=== PATIENT | female | born 1960 | race American Indian/Alaskan Native ===

== ENCOUNTER 2017-03-31 06:43 | Emergency (ER) | payer SELFPAY ==
[2017-03-31 07:49] VITALS: BP 152/96
[2017-03-31 08:07] LABS: Basophils % (Auto) 0.4 % (0.0-1.8); Hemoglobin 12.4 gm/dl (10.1-14.3); Mean Corpuscular HGB Conc 33 % (30-34); Mean Corpuscular Hemoglobin 29 pg (28-32); Mean Corpuscular Volume 88 fl (79-97); Platelet Count 402 K/mm3 (140-440); Red Blood Count 4.34 M/mm3 (3.65-5.03); Red Cell Distribution Width 13.6 % (13.2-15.2); White Blood Count 7.1 K/mm3 (4.5-11.0)
[2017-03-31 08:19] LABS: Anion Gap 15 mmol/L; Blood Urea Nitrogen 7 mg/dL (7-17); Calcium 9.3 mg/dL (8.4-10.2); Carbon Dioxide 28 mmol/L (22-30); Chloride 101.6 mmol/L (98-107); Glucose 76 mg/dL (65-100); Potassium 3.8 mmol/L (3.6-5.0); Sodium 141 mmol/L (137-145)
--- NOTE | 2017-03-31 08:25 | XRay Report ---
CHEST 2 VIEWS INDICATION: Shortness of breath. COMPARISON: None similar at this institution. FINDINGS: PA and lateral chest radiographs demonstrate normal cardiomediastinal silhouette. Prominent/increased bronchovascular markings centrally with mild peribronchial thickening. No significant consolidation, though subtle suprahilar air space opacities not excluded developing. No pleural effusions or CHF. Demineralized bones with mild multilevel thoracic spine degenerative spurring. Lower cervical fusion hardware partially imaged. CONCLUSION: Bronchitis/peribronchial thickening, as described. Please correlate. Thank you for the opportunity to participate in this patient's care.
--- NOTE | 2017-03-31 08:37 | Emergency Department Report ---
- General Chief Complaint: Upper Respiratory Infection Stated Complaint: CHEST PAIN Time Seen by Provider: 03/31/17 08:19 Source: patient Mode of arrival: Ambulatory Limitations: No Limitations - History of Present Illness Initial Comments: This is a 56-year-old female that presents to the ED c/o of cough, chills, fever , headache x2 weeks. Patient stated she was seen in another ED and was dx with URI and was prescribed Tylenol, Tessalon, and Floanse with no relief. Patient present today with same symptoms and unchanged. Patient also stated has developed a productive cough with green/brown colored. Patient stated has chest tightness during cough episodes only. Patient denies sick contact. Patient states headache is during coughing episodes as well. Patient describes headache intermittent as aching diffuse level 5/10. Denies reproducible chest pain or radiating chest pain. Patient denies any recent travels, long car rides, or recent hospital stays. Patient denies thunderclap headache. Patient denies blurry vision, chest pain, shortness of breathe, hematisis, stiff neck, thunderclap headache, calf pain or tenderness, n/v, abd pain, wheezing. Patient agrees to PCN and codeine allergies. PMH of DM, HTN, and Arthritis. MD Complaint: cough -: Gradual, week(s) (2) Severity: moderate Severity scale (0 -10): 5 Quality: aching Consistency: intermittent Improves With: nothing Worsens With: nothing Associated Symptoms: fever, chills, headache (intermittent during cough), cough (productive with green/brown production), chest pain (intermittent during cough episode). denies: myalgias, diaphoresis, rhinorrhea, nasal congestion, sore throat, stiff neck, shortness of breath, abdominal pain, nausea, vomiting, diarrhea, dysuria, rash, confusion, right sweats, weight loss, epistaxis, hoarseness, ear pain Treatments Prior to Arrival: "cold medicine" - Related Data Previous Rx's Medication Instructions Recorded Last Taken Type Azithromycin [Zithromax Z-ROBBIN] 250 mg PO DAILY #6 tablet 03/31/17 Unknown Rx Nystas/Diphen/Xyl Visc/Mylanta 30 ml MM Q4H PRN #1 ml 03/31/17 Unknown Rx [Magic Mouthwash] Allergies Allergy/AdvReac Type Severity Reaction Status Date / Time codeine Allergy Vomiting Verified 03/31/17 07:38 Penicillins Allergy Hives Verified 03/31/17 07:38 ED Review of Systems ROS: Stated complaint: CHEST PAIN Other details as noted in HPI Constitutional: denies: chills, fever Eyes: denies: eye pain, eye discharge, vision change ENT: denies: ear pain, throat pain Respiratory: denies: cough, shortness of breath, wheezing Cardiovascular: denies: chest pain, palpitations Endocrine: no symptoms reported Gastrointestinal: denies: abdominal pain, nausea, diarrhea Genitourinary: denies: urgency, dysuria, discharge Musculoskeletal: denies: back pain, joint swelling, arthralgia Skin: denies: rash, lesions Neurological: denies: headache, weakness, paresthesias Psychiatric: denies: anxiety, depression Hematological/Lymphatic: denies: easy bleeding, easy bruising ED Past Medical Hx - Past Medical History Hx Hypertension: Yes Hx Diabetes: Yes (type 2) Hx Arthritis: Yes (left hip) Additional medical history: high cholesterol. "stroke in right eye" - Surgical History Hx Cholecystectomy: Yes Hx Appendectomy: Yes Hx Breast Surgery: Yes (BREAST REDUCTION) Additional Surgical History: X 2. HYSTERECTOMY - Social History Smoking Status: Current Every Day Smoker Substance Use Type: None - Medications Home Medications: Home Medications Medication Instructions Recorded Confirmed Last Taken Type Azithromycin [Zithromax Z-ROBBIN] 250 mg PO DAILY #6 tablet 03/31/17 Unknown Rx Nystas/Diphen/Xyl Visc/Mylanta 30 ml MM Q4H PRN #1 ml 03/31/17 Unknown Rx [Magic Mouthwash] ED Physical Exam - General Limitations: No Limitations General appearance: alert, in no apparent distress - Head Head exam: Present: atraumatic, normocephalic, normal inspection - Eye Eye exam: Present: normal appearance, PERRL, EOMI. Absent: scleral icterus, conjunctival injection, nystagmus, periorbital swelling, periorbital tenderness Pupils: Present: normal accommodation - ENT ENT exam: Present: normal exam, normal orophraynx, mucous membranes moist, TM's normal bilaterally, normal external ear exam - Neck Neck exam: Present: normal inspection, full ROM. Absent: tenderness, meningismus, lymphadenopathy, thyromegaly - Respiratory Respiratory exam: Present: normal lung sounds bilaterally. Absent: respiratory distress, wheezes, rales, rhonchi, stridor, chest wall tenderness, accessory muscle use, decreased breath sounds, prolonged expiratory - Cardiovascular Cardiovascular Exam: Present: regular rate, normal rhythm, normal heart sounds. Absent: bradycardia, tachycardia, irregular rhythm, systolic murmur, diastolic murmur, rubs, gallop - GI/Abdominal GI/Abdominal exam: Present: soft, normal bowel sounds. Absent: distended, tenderness, guarding, rebound, rigid, diminished bowel sounds - Rectal Rectal exam: Present: deferred - Extremities Exam Extremities exam: Present: normal inspection, full ROM, normal capillary refill. Absent: tenderness, pedal edema, joint swelling, calf tenderness - Back Exam Back exam: Present: normal inspection, full ROM. Absent: tenderness, CVA tenderness (R), CVA tenderness (L), muscle spasm, paraspinal tenderness, vertebral tenderness, rash noted - Neurological Exam Neurological exam: Present: alert, oriented X3, CN II-XII intact, normal gait, reflexes normal - Psychiatric Psychiatric exam: Present: normal affect, normal mood - Skin Skin exam: Present: warm, dry, intact, normal color. Absent: rash ED Course Vital Signs 03/31/17 07:41 Temperature 98.5 F Pulse Rate 90 Respiratory 18 Rate Blood Pressure 152/96 O2 Sat by Pulse 98 Oximetry - Reevaluation(s) Reevaluation #1: 03/31/17 08:46 Patient is able to talk in full sentences with no signs of distress noted. ED Medical Decision Making - Lab Data Result diagrams: 03/31/17 07:57 03/31/17 07:57 - Medical Decision Making Ed course: This is a 56-year-old female that presents with URI 1- patient was examined by myself. Patient is able to speak in full sentences with no signs of distress. No wheezing. NO SOB 2- EKg and chest xray obtained with normal findings. Dictated by radiologist. Patient was notified of xray findings. 3- CBC and BMP obtained with normal findings. 4- patient will be treated with Zpak and magic mouth wash. Patient was instructed to follow-up with a primary care doctor in 3-5 days or if symptoms such as chest pain, shortness of breathe, fever, chills, severe headache, stiff neck, nausea or vomiting return to the emergency room as soon as possible. 5- at time time of discharge, the patient does not seem toxic or ill in appearance. No acute signs of distress noted. Patient agrees to discharge treatment plan of care. No further questions noted by the patient. Critical care attestation.: If time is entered above; I have spent that time in minutes in the direct care of this critically ill patient, excluding procedure time. ED Disposition Clinical Impression: Upper respiratory infection Qualifiers: URI type: unspecified URI Qualified Code(s): J06.9 - Acute upper respiratory infection, unspecified Disposition: - TO HOME OR SELFCARE Is pt being admited?: No Does the pt Need Aspirin: No Condition: Stable Instructions: Urinary Tract Infection in Women (ED), Azithromycin (By mouth) Additional Instructions: follow-up with a primary care doctor in 3-5 days or if symptoms such as chest pain, shortness of breathe, fever, chills, severe headache, stiff neck, nausea or vomiting return to the emergency room as soon as possible. Take full course of antibiotics that was prescribed to you Prescriptions: Azithromycin [Zithromax Z-ROBBIN] 250 mg PO DAILY #6 tablet Nystas/Diphen/Xyl Visc/Mylanta [Magic Mouthwash] 30 ml MM Q4H PRN #1 ml PRN Reason: sore throat/cough Referrals: PRIMARY CAREMD [Primary Care Provider] - 3-5 Days JACK LOPEZ JR, MD [Staff Physician] - 3-5 Days [facility] [Outside] - 3-5 Days [facility] [Outside] - 3-5 Days Forms: Work/School Release Form(ED)
== END 2017-03-31 09:56 | disposition home or self-care (01) ==
LOC: ED 06:43
DX: J06.9 Acute upper respiratory infection, unspecified (principal); I10 Essential (primary) hypertension; E11.9 Type 2 diabetes mellitus without complications; F17.200 Nicotine dependence, unspecified, uncomplicated
CPT/HCPCS: 36415; 71020; 80048; 85025; 93005; 93010; 99283

== ENCOUNTER 2017-05-18 06:51 | Emergency (ER) | payer SELFPAY ==
[2017-05-18 07:50] VITALS: BP 130/87
[2017-05-18 12:38] LABS: Anion Gap 19 mmol/L; BUN/Creatinine Ratio 33.33; Blood Urea Nitrogen 10 mg/dL (7-17); Calcium 8.9 mg/dL (8.4-10.2); Carbon Dioxide 22 mmol/L (22-30); Chloride 101.9 mmol/L (98-107); Glucose 88 mg/dL (65-100); Sodium 139 mmol/L (137-145)
[2017-05-18] MEDS ORDERED: TORADOL IM ONE (12:47)
--- NOTE | 2017-05-19 12:20 | Vascular Lab Report ---
Right Lower Extremity Venous Duplex Study: Reason for Exam: Swelling of the right lower extremity. Comments on the Right: All veins visualized are freely compressible without evidence of internal echogenicity. Flow is spontaneous and phasic throughout. No evidence of acute or chronic thrombus is seen in any of the vessels visualized. Comments on the Left: A limited duplex study was done of the proximal veins of the left lower extremity. All veins visualized are freely compressible without evidence of internal echogenicity. Flow is spontaneous and phasic throughout. No evidence of acute or chronic thrombus is seen in any of the vessels visualized. Impression: No evidence of acute or chronic deep venous thrombosis in the right lower extremity.
--- NOTE | 2017-05-20 18:44 | Emergency Department Report ---
Entered by PATRIC MOYA, acting as scribe for JERRY MAGANA PAC. 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 Rates pain a 10/10 in severity, which she describes as aching in quality. Aggravated with movement, weight bearing, and palpation, and alleviated with immobilization. Reports associated right knee swelling, but she denies right knee injury/trauma, nausea, vomiting, fever, chills, chest pain, SOB, ROSALES or dizziness, numbness, and tingling. Patient states she had swelling from right knee down to right foot 4 days ago that all resolved except for her right knee. Denies PMHx of gout, DVT, and PE. Denies any recent long trips. Works at a [employer]. Took Advil and Tylenol with no relief. Allergic to codeine and penicillin. MD Complaint: joint paint Onset/Timin -: month(s) Location: right, knee History of Same: No -: No myalgia, Yes arthralgia, No fever, No associated dyspnea, No associated chest pain Radiation: none Severity scale (0 -10): 10 Quality: aching Consistency: constant Improves with: immobilization Worsens with: weight bearing, walking, exertion, palpation Associated Symptoms: denies other symptoms, arthralgias. denies: chest pain, shortness of breath, fever, myalgias, rash - Related Data Home Medications Medication Instructions Recorded Confirmed Last Taken Acetaminophen [Tylenol] 500 mg PO Q4HR 05/18/17 05/18/17 05/17/17 Aspirin [Aspirin BABY CHEW TAB] 81 mg PO QDAY 05/18/17 05/18/17 05/17/17 Losartan [Cozaar] 25 mg PO QDAY 05/18/17 05/18/17 05/17/17 Rosuvastatin Calcium 10 mg PO DAILY 05/18/17 05/18/17 05/17/17 amLODIPine [Norvasc] 10 mg PO DAILY 05/18/17 05/18/17 05/17/17 glipiZIDE [Glucotrol] 5 mg PO QDAY 05/18/17 05/18/17 05/17/17 metFORMIN [Glucophage] 500 mg PO BID 05/18/17 05/18/17 05/17/17 Previous Rx's Medication Instructions Recorded Last Taken Type Meloxicam [Mobic] 7.5 mg PO QDAY #14 tablet 05/18/17 Unknown Rx methylPREDNISolone [Medrol] 4 mg PO QAM #1 tab.ds.pk 05/18/17 Unknown Rx Allergies Allergy/AdvReac Type Severity Reaction Status Date / Time codeine Allergy Vomiting Verified 03/31/17 07:38 Penicillins Allergy Hives Verified 03/31/17 07:38 ED Review of Systems Comment: All other systems reviewed and negative Constitutional: denies: chills, fever Eyes: denies: eye pain, eye discharge, vision change ENT: denies: ear pain, throat pain Respiratory: denies: cough, orthopnea, shortness of breath, SOB with exertion, SOB at rest, stridor, wheezing Cardiovascular: denies: chest pain, palpitations, dyspnea on exertion, orthopnea , edema, syncope, paroxysmal nocturnal dyspnea Endocrine: no symptoms reported Gastrointestinal: denies: abdominal pain, nausea, vomiting, diarrhea Genitourinary: denies: urgency, dysuria, discharge Musculoskeletal: joint swelling (RT knee), arthralgia (RT knee pain). denies: back pain, myalgia Skin: denies: rash, lesions Neurological: denies: headache, weakness, paresthesias Psychiatric: denies: anxiety, depression Hematological/Lymphatic: denies: easy bleeding, easy bruising ED Past Medical Hx - Past Medical History Previous Medical History?: Yes Hx Hypertension: Yes Hx CVA: Yes ("in right eye" in December/January 2016) Hx Diabetes: Yes (type 2) Hx Arthritis: Yes (left hip) Additional medical history: high cholesterol - Surgical History Past Surgical History?: Yes Hx Cholecystectomy: Yes Hx Appendectomy: Yes Hx Breast Surgery: Yes (BREAST REDUCTION) Additional Surgical History: X 2. HYSTERECTOMY - Family History Family history: no significant - Social History Smoking Status: Current Every Day Smoker Substance Use Type: None - Medications Home Medications: Home Medications Medication Instructions Recorded Confirmed Last Taken Type Acetaminophen [Tylenol] 500 mg PO Q4HR 05/18/17 05/18/17 05/17/17 History Aspirin [Aspirin BABY CHEW TAB] 81 mg PO QDAY 05/18/17 05/18/17 05/17/17 History Losartan [Cozaar] 25 mg PO QDAY 05/18/17 05/18/17 05/17/17 History Meloxicam [Mobic] 7.5 mg PO QDAY #14 tablet 05/18/17 Unknown Rx Rosuvastatin Calcium 10 mg PO DAILY 05/18/17 05/18/17 05/17/17 History amLODIPine [Norvasc] 10 mg PO DAILY 05/18/17 05/18/17 05/17/17 History glipiZIDE [Glucotrol] 5 mg PO QDAY 05/18/17 05/18/17 05/17/17 History metFORMIN [Glucophage] 500 mg PO BID 05/18/17 05/18/17 05/17/17 History methylPREDNISolone [Medrol] 4 mg PO QAM #1 tab.ds.pk 05/18/17 Unknown Rx ED Physical Exam - General Limitations: No Limitations General appearance: alert, in no apparent distress - Head Head exam: Present: atraumatic, normocephalic - Eye Eye exam: Present: normal appearance, PERRL, EOMI Pupils: Present: normal accommodation - ENT ENT exam: Present: normal exam, mucous membranes moist, normal external ear exam - Neck Neck exam: Present: normal inspection, full ROM. Absent: tenderness, meningismus, lymphadenopathy, thyromegaly - Respiratory Respiratory exam: Present: normal lung sounds bilaterally. Absent: respiratory distress, wheezes, rales, rhonchi, stridor, chest wall tenderness, accessory muscle use, decreased breath sounds - Cardiovascular Cardiovascular Exam: Present: regular rate, normal rhythm, normal heart sounds. Absent: systolic murmur, diastolic murmur - GI/Abdominal GI/Abdominal exam: Present: soft, normal bowel sounds. Absent: distended - Extremities Exam Extremities exam: Present: full ROM (painful FROM to RT knee), tenderness (RT knee, lower aspect of RT upper leg, and upper aspect of RT lower leg), normal capillary refill, other (RT knee is warm to touch). Absent: normal inspection, pedal edema, joint swelling, calf tenderness - Expanded Lower Extremity Exam Right Hip exam: Present: normal inspection, full ROM Upper Leg exam: Present: full ROM, tenderness (lower aspect of RT upper leg). Absent: normal inspection, swelling, abrasion, laceration, ecchymosis, deformity , crepidus, dislocation, erythema Knee exam: Present: full ROM (painful FROM to RT knee), tenderness, swelling, erythema, full knee extension. Absent: normal inspection, abrasion, laceration , ecchymosis, deformity, crepidus, dislocation, effusion, pain w/ pronation/ supination, posterior draw sign, pain/laxity with valgus, pain/laxity with varus Lower Leg exam: Present: full ROM, tenderness (upper aspect of RT lower leg, positive R calf tenderness, more pain around the R knee, mild redness, and warm to touch). Absent: normal inspection, swelling, abrasion, laceration, ecchymosis, deformity, crepidus, dislocation, erythema, palpable cord, Celia's sign Ankle exam: Present: normal inspection, full ROM. Absent: tenderness, swelling , abrasion, laceration, ecchymosis, deformity, crepidus, dislocation, erythema, anterior draw sign Foot/Toe exam: Present: normal inspection, full ROM. Absent: tenderness, swelling, abrasion, laceration, ecchymosis, deformity, crepidus, dislocation, erythema, amputation, puncture wound, foreign body, calcaneal tenderness, tenderness at base of 5th metatarsal, nail avulsion, subungual hematoma Neuro vascular tendon exam: Present: no vascular compromise. Absent: pulse deficit, abnormal cap refill, motor deficit, sensory deficit, tendon deficit, extremity cold to touch, pallor, abnormal 2-point discrimination, decreased fine /light touch, foot drop, peroneal nerve deficit, significant pain with passive ROM of distal joint Gait: Positive: observed and limited by pain - Back Exam Back exam: Present: normal inspection, full ROM - Neurological Exam Neurological exam: Present: alert, oriented X3, CN II-XII intact (limited Right lateral Eye movement secondary to the stroke, strength full bilaterally, pt refused to show strength of the affected lower limb, 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, sensation intact ), normal gait (limited due to RT knee pain) - Expanded Neurological Exam Expanded Patient oriented to: Present: person, place, time Speech: Present: fluid speech (normal tone of speech) Cranial nerves: EOM's Intact: Abnormal Right (due to previous CVA in 2016), Tongue Deviation: Normal, Nystagmus: Normal, Facial Sensation: Normal, Facial Palsy with Forehead Movement: Normal, Facial Palsy without Forehead Movement: Normal Sensory exam: Upper Extremity Light Touch: Normal, Upper Extremity Pin Prick: Normal, Upper Extremity Temperature: Normal, UE 2 Point Discrimination: Normal, Lower Extremity Light Touch: Normal, Lower Extremity Pin Prick: Normal, Lower Extremity Temperature: Normal, LE 2 Point Discrimination: Normal Motor strength exam: RUE: 5, LUE: 5, RLE: 0 (patient refused motor strength exam on RLE due to pain), LLE: 5 Best Eye Response (Weiner): (4) open spontaneously Best Motor Response (Nazanin): (6) obeys commands Best Verbal Response (Weiner): (5) oriented Weiner Total: 15 - Psychiatric Psychiatric exam: Present: normal affect, normal mood - Skin Skin exam: Present: warm, dry, intact. Absent: rash ED Course Vital Signs 05/18/17 07:46 Temperature 98.5 F Pulse Rate 84 Respiratory 20 Rate Blood Pressure 130/87 O2 Sat by Pulse 100 Oximetry ED Medical Decision Making - Lab Data Result diagrams: 05/18/17 12:11 - Medical Decision Making 56 y/o F with a PMhx of stroke, DM type 2, hyperlipidemia, and HTN presents with a one month long R leg pain that has increased over the past 4 days. No known hx of gout, but states that she has arthritis of the left hip. Pt kidney function was checked here in the ED and was okayed by Dr. Ricketts, therefore, pt was given 60 mg of toradol in house for the pain, and discharged on medrol dose ansley 4 mg along with meloxicam. Pt states that her DM is fairly controlled per her past PCP appointment. Pt encouraged to follow-up with her within the next week. ED Disposition Clinical Impression: Gout attack Qualifiers: Gout site: knee Gout etiology: unspecified cause Laterality: right Qualified Code(s): M10.9 - Gout, unspecified Disposition: - TO HOME OR SELFCARE Is pt being admited?: No Does the pt Need Aspirin: No Instructions: Acute Gouty Arthritis (ED), Meloxicam (By mouth), Methylprednisolone (By mouth) Additional Instructions: please be advised that such medications can make you drowsy, use cautiously and as needed. Please return to the ED with continued or worsening symptoms as explained to you today. Please see your PCP within the next week. Rest the area , work note provided for you today. Prescriptions: Meloxicam [Mobic] 7.5 mg PO QDAY #14 tablet methylPREDNISolone [Medrol] 4 mg PO QAM #1 tab.ds.pk Referrals: PRIMARY CAREMD [Primary Care Provider] - 3-5 Days STEPHANIE MORALES MD [Referring] - 3-5 Days [facility] [Outside] - 3-5 Days [facility] [Outside] - 3-5 Days Forms: Work/School Release Form(ED) Time of Disposition: 13:25 This documentation as recorded by the NITA bojorquez JASMINE,accurately reflects the service I personally performed and the decisions made by me,JERRY MAGANA, PAC.
== END 2017-05-18 13:37 | disposition home or self-care (01) ==
LOC: ED 06:51
DX: M10.9 Gout, unspecified (principal); I10 Essential (primary) hypertension; E11.9 Type 2 diabetes mellitus without complications; M19.90 Unspecified osteoarthritis, unspecified site; F17.210 Nicotine dependence, cigarettes, uncomplicated; Z88.6 Allergy status to analgesic agent; Z88.0 Allergy status to penicillin; Z86.73 Personal history of transient ischemic attack (TIA), and cerebral infarction without residual deficits; Z79.82 Long term (current) use of aspirin
CPT/HCPCS: 36415; 80048; 93971; 96372; 99284; J1885

== ENCOUNTER 2017-09-19 07:35 | Emergency (ER) | payer SELFPAY ==
[2017-09-19 14:27] VITALS: BP 156/83
--- NOTE | 2017-09-19 15:53 | XRay Report ---
CHEST 2 VIEWS INDICATION: Brown, productive cough for 2 days. COMPARISON: 03/31/2017 FINDINGS: PA and lateral chest radiographs demonstrate stable cardiomediastinal silhouette and somewhat prominent lung markings centrally. Slight peribronchial thickening. No dense focal consolidation, pleural effusions or CHF. Multilevel thoracic spondylosis. Lower cervical spine fusion hardware. CONCLUSION: Bronchitis/peribronchial thickening may again be correlated for clinically in an appropriate setting, as described. Thank you for the opportunity to participate in this patient's care.
[2017-09-19] MEDS ORDERED: MOTRIN PO ONE (16:04)
[2017-09-19] MEDS ORDERED: TYLENOL PO ONE (16:04)
--- NOTE | 2017-09-19 16:11 | Emergency Department Report ---
ED General Adult HPI - General Chief complaint: Upper Respiratory Infection Stated complaint: C/P TIGHTNESS Time Seen by Provider: 09/19/17 14:54 Source: patient Mode of arrival: Ambulatory Limitations: No Limitations - History of Present Illness Initial comments: Pt is 56F who presents with cough and congestion that has been going on for the last couple of days. She states nothing makes her cough better or worse. She denies being around any sick contacts. She also states that she has a sore throat. He sore throat is a 5/10 nothing eating makes it worse and nothign makes it better. Pt denies having any fever or chills. Pt denies having any hemoptysis or bloody stools. Severity scale (0 -10): 10 - Related Data Home Medications Medication Instructions Recorded Confirmed Last Taken Acetaminophen [Tylenol] 500 mg PO Q4HR 05/18/17 05/18/17 05/17/17 Aspirin [Aspirin BABY CHEW TAB] 81 mg PO QDAY 05/18/17 05/18/17 05/17/17 Losartan [Cozaar] 25 mg PO QDAY 05/18/17 05/18/17 05/17/17 Rosuvastatin Calcium 10 mg PO DAILY 05/18/17 05/18/17 05/17/17 amLODIPine [Norvasc] 10 mg PO DAILY 05/18/17 05/18/17 05/17/17 glipiZIDE [Glucotrol] 5 mg PO QDAY 05/18/17 05/18/17 05/17/17 metFORMIN [Glucophage] 500 mg PO BID 05/18/17 05/18/17 05/17/17 Previous Rx's Medication Instructions Recorded Last Taken Type Meloxicam [Mobic] 7.5 mg PO QDAY #14 tablet 05/18/17 Unknown Rx methylPREDNISolone [Medrol] 4 mg PO QAM #1 tab.ds.pk 05/18/17 Unknown Rx Azithromycin [Zithromax Z-ROBBIN] 250 mg PO QDAY #5 tablet 09/19/17 Unknown Rx D-Methorphan/PE/Acetaminophen 1 each PO Q6H PRN #30 tablet 09/19/17 Unknown Rx [Tylenol Cold Max Day Caplet] Naproxen 250 mg PO Q12HR #20 tablet 09/19/17 Unknown Rx guaiFENesin [Mucinex] 600 mg PO Q12H #20 tab.er.12h 09/19/17 Unknown Rx Allergies Allergy/AdvReac Type Severity Reaction Status Date / Time codeine Allergy Vomiting Verified 03/31/17 07:38 Penicillins Allergy Hives Verified 03/31/17 07:38 ED Review of Systems ROS: Stated complaint: C/P TIGHTNESS Other details as noted in HPI Constitutional: denies: chills, fever Eyes: denies: eye pain, eye discharge, vision change ENT: throat pain. denies: ear pain Respiratory: cough. 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 HYSTERECTOMY - Social History Smoking Status: Current Every Day Smoker Substance Use Type: Alcohol - Medications Home Medications: Home Medications Medication Instructions Recorded Confirmed Last Taken Type Acetaminophen [Tylenol] 500 mg PO Q4HR 05/18/17 05/18/17 05/17/17 History Aspirin [Aspirin BABY CHEW TAB] 81 mg PO QDAY 05/18/17 05/18/17 05/17/17 History Losartan [Cozaar] 25 mg PO QDAY 05/18/17 05/18/17 05/17/17 History Meloxicam [Mobic] 7.5 mg PO QDAY #14 tablet 05/18/17 Unknown Rx Rosuvastatin Calcium 10 mg PO DAILY 05/18/17 05/18/17 05/17/17 History amLODIPine [Norvasc] 10 mg PO DAILY 05/18/17 05/18/17 05/17/17 History glipiZIDE [Glucotrol] 5 mg PO QDAY 05/18/17 05/18/17 05/17/17 History metFORMIN [Glucophage] 500 mg PO BID 05/18/17 05/18/17 05/17/17 History methylPREDNISolone [Medrol] 4 mg PO QAM #1 tab.ds.pk 05/18/17 Unknown Rx Azithromycin [Zithromax Z-ROBBIN] 250 mg PO QDAY #5 tablet 09/19/17 Unknown Rx D-Methorphan/PE/Acetaminophen 1 each PO Q6H PRN #30 tablet 09/19/17 Unknown Rx [Tylenol Cold Max Day Caplet] Naproxen 250 mg PO Q12HR #20 tablet 09/19/17 Unknown Rx guaiFENesin [Mucinex] 600 mg PO Q12H #20 tab.er.12h 09/19/17 Unknown Rx ED Physical Exam - General Limitations: No Limitations General appearance: alert, in no apparent distress - Head Head exam: Present: atraumatic, normocephalic - Eye Eye exam: Present: normal appearance - ENT ENT exam: Present: mucous membranes moist, other (No tonsilar exudates or cervical adenopathy ) - Neck Neck exam: Present: normal inspection - Respiratory Respiratory exam: Present: normal lung sounds bilaterally. Absent: respiratory distress - Cardiovascular Cardiovascular Exam: Present: regular rate, normal rhythm. Absent: systolic murmur, diastolic murmur, rubs, gallop - GI/Abdominal GI/Abdominal exam: Present: soft, normal bowel sounds - Extremities Exam Extremities exam: Present: normal inspection - Back Exam Back exam: Present: normal inspection - Neurological Exam Neurological exam: Present: alert, oriented X3 - Psychiatric Psychiatric exam: Present: normal affect, normal mood - Skin Skin exam: Present: warm, dry, intact, normal color. Absent: rash ED Course Vital Signs 09/19/17 09/19/17 09/19/17 07:41 14:26 14:27 Temperature 98.9 F 99.4 F Pulse Rate 105 H 92 H Respiratory 20 18 18 Rate Blood Pressure 152/90 Blood Pressure 156/83 [Left] O2 Sat by Pulse 99 99 Oximetry ED Medical Decision Making - EKG Data -: EKG Interpreted by Sc - EKG Data 09/19/17 16:16 EKG shows normal sinus rhythm, normal axis no st segment elevation or T wave inversion - Medical Decision Making Cdx: URI ddx: PNA, viral pharyngtis, bronchitis I will get chest xray, oral pain medications and will revaluate the the patient. Patient has a URI I will send pt with azithromycin and steroids. Pt requests antibiotics discussed with pt that it is of limited utilitly. Based on clinical signs pt doesn't have strep throat and doesn't need strep throat culture. Discussed plan with patient and patient agrees with plan additional verbal discharge instructions were given. Critical care attestation.: If time is entered above; I have spent that time in minutes in the direct care of this critically ill patient, excluding procedure time. ED Disposition Clinical Impression: Bronchitis, Chest wall pain URI (upper respiratory infection) Qualifiers: URI type: unspecified viral URI Qualified Code(s): J06.9 - Acute upper respiratory infection, unspecified; B97.89 - Other viral agents as the cause of diseases classified elsewhere; B97.89 - Other viral agents as the cause of diseases classified elsewhere Disposition: DC-01 TO HOME OR SELFCARE Is pt being admited?: No Does the pt Need Aspirin: No Condition: Stable Instructions: Chronic Bronchitis (ED), Chest Pain (ED) Prescriptions: Azithromycin [Zithromax Z-ROBBIN] 250 mg PO QDAY #5 tablet D-Methorphan/PE/Acetaminophen [Tylenol Cold Max Day Caplet] 1 each PO Q6H PRN # 30 tablet PRN Reason: Pain guaiFENesin [Mucinex] 600 mg PO Q12H #20 tab.er.12h Naproxen 250 mg PO Q12HR #20 tablet Referrals: PRIMARY CARE, [Primary Care Provider] - 3-5 Days Forms: Work/School Release Form(ED)
== END 2017-09-19 16:32 | disposition home or self-care (01) ==
LOC: ED 07:35
DX: J06.9 Acute upper respiratory infection, unspecified (principal); R07.89 Other chest pain; F17.200 Nicotine dependence, unspecified, uncomplicated; Z79.82 Long term (current) use of aspirin; I10 Essential (primary) hypertension; E78.00 Pure hypercholesterolemia, unspecified; E11.9 Type 2 diabetes mellitus without complications; M19.90 Unspecified osteoarthritis, unspecified site; Z90.710 Acquired absence of both cervix and uterus; Z90.49 Acquired absence of other specified parts of digestive tract
CPT/HCPCS: 71046; 93005; 93010; 99283

== ENCOUNTER 2017-11-05 09:52 | Emergency (ER) | payer OTHER ==
[2017-11-05 10:46] LABS: Basophils % (Auto) 0.1 % (0.0-1.8); Eosinophils % (Auto) 0.2 % (0.0-4.3); Hematocrit 37.5 % (30.3-42.9); Hemoglobin 12.4 gm/dl (10.1-14.3); Lymphocytes # (Auto) 1.1 K/mm3 (1.2-5.4); Lymphocytes % (Auto) 13.1 % (13.4-35.0); Mean Corpuscular HGB Conc 33 % (30-34); Mean Corpuscular Hemoglobin 28 pg (28-32); Mean Corpuscular Volume 84 fl (79-97); Monocytes # (Auto) 0.8 K/mm3 (0.0-0.8); Monocytes % (Auto) 9.5 % (0.0-7.3); Platelet Count 273 K/mm3 (140-440); Red Blood Count 4.45 M/mm3 (3.65-5.03); Red Cell Distribution Width 13.5 % (13.2-15.2)
--- NOTE | 2017-11-05 11:00 | Emergency Department Report ---
ED Abdominal Pain HPI - General Chief Complaint: Abdominal Pain Stated Complaint: NAUSEA/VOMITING Time Seen by Provider: 11/05/17 10:46 Source: patient Mode of arrival: Ambulatory Limitations: No Limitations - History of Present Illness MD Complaint: abdominal pain -: Sudden, Last night (after drinking alcohol and eating chicken. ) Location: diffuse Migration to: no migration Severity scale (0 -10): 10 Quality: cramping Consistency: constant Improves With: nothing Worsens With: vomiting Context: possible food poisoning Associated Symptoms: nausea, vomiting, diarrhea (loose BM X3) - Related Data Home Medications Medication Instructions Recorded Confirmed Last Taken Acetaminophen [Tylenol] 500 mg PO Q4HR 05/18/17 05/18/17 05/17/17 Aspirin [Aspirin BABY CHEW TAB] 81 mg PO QDAY 05/18/17 05/18/17 05/17/17 Losartan [Cozaar] 25 mg PO QDAY 05/18/17 05/18/17 05/17/17 Rosuvastatin Calcium 10 mg PO DAILY 05/18/17 05/18/17 05/17/17 amLODIPine [Norvasc] 10 mg PO DAILY 05/18/17 05/18/17 05/17/17 glipiZIDE [Glucotrol] 5 mg PO QDAY 05/18/17 05/18/17 05/17/17 metFORMIN [Glucophage] 500 mg PO BID 05/18/17 05/18/17 05/17/17 Previous Rx's Medication Instructions Recorded Last Taken Type Meloxicam [Mobic] 7.5 mg PO QDAY #14 tablet 05/18/17 Unknown Rx methylPREDNISolone [Medrol] 4 mg PO QAM #1 tab.ds.pk 05/18/17 Unknown Rx Azithromycin [Zithromax Z-ROBBIN] 250 mg PO QDAY #5 tablet 09/19/17 Unknown Rx D-Methorphan/PE/Acetaminophen 1 each PO Q6H PRN #30 tablet 09/19/17 Unknown Rx [Tylenol Cold Max Day Caplet] Naproxen 250 mg PO Q12HR #20 tablet 09/19/17 Unknown Rx guaiFENesin [Mucinex] 600 mg PO Q12H #20 tab.er.12h 09/19/17 Unknown Rx Ibuprofen [Motrin] 800 mg PO Q8HR PRN #24 tablet 11/05/17 Unknown Rx oxyCODONE /ACETAMINOPHEN [Percocet 1 tab PO Q6HR PRN #16 tablet 11/05/17 Unknown Rx 5/325] Allergies Allergy/AdvReac Type Severity Reaction Status Date / Time codeine Allergy Vomiting Verified 03/31/17 07:38 Penicillins Allergy Hives Verified 03/31/17 07:38 ED Review of Systems ROS: Stated complaint: NAUSEA/VOMITING Other details as noted in HPI Constitutional: denies: chills, fever Eyes: denies: eye pain, eye discharge, vision change ENT: denies: ear pain, throat pain Respiratory: denies: cough, shortness of breath, wheezing Cardiovascular: denies: chest pain, palpitations Endocrine: no symptoms reported Gastrointestinal: as per HPI, abdominal pain, nausea, vomiting, diarrhea. 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 HYSTERECTOMY - Social History Smoking Status: Current Every Day Smoker Substance Use Type: Alcohol - Medications Home Medications: Home Medications Medication Instructions Recorded Confirmed Last Taken Type Acetaminophen [Tylenol] 500 mg PO Q4HR 05/18/17 05/18/17 05/17/17 History Aspirin [Aspirin BABY CHEW TAB] 81 mg PO QDAY 05/18/17 05/18/17 05/17/17 History Losartan [Cozaar] 25 mg PO QDAY 05/18/17 05/18/17 05/17/17 History Meloxicam [Mobic] 7.5 mg PO QDAY #14 tablet 05/18/17 Unknown Rx Rosuvastatin Calcium 10 mg PO DAILY 05/18/17 05/18/17 05/17/17 History amLODIPine [Norvasc] 10 mg PO DAILY 05/18/17 05/18/17 05/17/17 History glipiZIDE [Glucotrol] 5 mg PO QDAY 05/18/17 05/18/17 05/17/17 History metFORMIN [Glucophage] 500 mg PO BID 05/18/17 05/18/17 05/17/17 History methylPREDNISolone [Medrol] 4 mg PO QAM #1 tab.ds.pk 05/18/17 Unknown Rx Azithromycin [Zithromax Z-ROBBIN] 250 mg PO QDAY #5 tablet 09/19/17 Unknown Rx D-Methorphan/PE/Acetaminophen 1 each PO Q6H PRN #30 tablet 09/19/17 Unknown Rx [Tylenol Cold Max Day Caplet] Naproxen 250 mg PO Q12HR #20 tablet 09/19/17 Unknown Rx guaiFENesin [Mucinex] 600 mg PO Q12H #20 tab.er.12h 09/19/17 Unknown Rx Ibuprofen [Motrin] 800 mg PO Q8HR PRN #24 tablet 11/05/17 Unknown Rx oxyCODONE /ACETAMINOPHEN [Percocet 1 tab PO Q6HR PRN #16 tablet 11/05/17 Unknown Rx 5/325] ED Physical Exam - General Limitations: No Limitations General appearance: alert, in no apparent distress - Head Head exam: Present: atraumatic, normocephalic - Eye Eye exam: Present: normal appearance - ENT ENT exam: Present: mucous membranes moist - Neck Neck exam: Present: normal inspection - Respiratory Respiratory exam: Present: normal lung sounds bilaterally. Absent: respiratory distress - Cardiovascular Cardiovascular Exam: Present: regular rate, normal rhythm. Absent: systolic murmur, diastolic murmur, rubs, gallop - GI/Abdominal GI/Abdominal exam: Present: soft, tenderness (diffuse), normal bowel sounds. Absent: rebound - Extremities Exam Extremities exam: Present: normal inspection - Back Exam Back exam: Present: normal inspection - Neurological Exam Neurological exam: Present: alert, oriented X3 - Psychiatric Psychiatric exam: Present: normal affect, normal mood - Skin Skin exam: Present: warm, dry, intact, normal color. Absent: rash ED Course Vital Signs 11/05/17 11/05/17 10:15 11:37 Temperature 98.7 F Pulse Rate 92 H 84 Respiratory 18 16 Rate Blood Pressure 146/80 Blood Pressure 131/75 [Left] O2 Sat by Pulse 98 96 Oximetry ED Medical Decision Making - Lab Data Result diagrams: 11/05/17 10:30 11/05/17 10:30 Critical care attestation.: If time is entered above; I have spent that time in minutes in the direct care of this critically ill patient, excluding procedure time. ED Disposition Clinical Impression: Hepatitis, Lymphadenopathy, abdominal Pancreatitis Qualifiers: Chronicity: acute Pancreatitis type: alcohol induced Acute pancreatitis complication: no infection or necrosis Qualified Code(s): K85.20 - Alcohol induced acute pancreatitis without necrosis or infection Disposition: - TO HOME OR SELFCARE Is pt being admited?: No Does the pt Need Aspirin: No Condition: Stable Instructions: Abdominal Pain (ED) Additional Instructions: Follow up with PCP for CT findings. Prescriptions: Ibuprofen [Motrin] 800 mg PO Q8HR PRN #24 tablet PRN Reason: Pain oxyCODONE /ACETAMINOPHEN [Percocet 5/325] 1 tab PO Q6HR PRN #16 tablet PRN Reason: Pain Time of Disposition: 15:11
[2017-11-05] MEDS ORDERED: TORADOL IM ONE (11:04)
[2017-11-05 11:06] LABS: Alanine Aminotransferase 309 units/L (7-56); Albumin 3.9 g/dL (3.9-5); BUN/Creatinine Ratio 23; Blood Urea Nitrogen 7 mg/dL (7-17); Calcium 9.1 mg/dL (8.4-10.2); Hemolysis Index 0
[2017-11-05 11:35] LABS: Bacteria,Urine 1+ /HPF (Negative); Bilirubin,Urine SM (Negative); Blood,Urine NEG (Negative); Color,Urine Amber (Yellow); Mucus,Urine FEW /HPF; Protein,Urine <15 mg/dL mg/dL (Negative)
[2017-11-05 11:38] VITALS: BP 131/75
[2017-11-05 11:44] LABS: Ictotest,Urine Positive (Negative)
--- NOTE | 2017-11-05 12:02 | Cat Scan Report ---
CT ABDOMEN PELVIS WITHOUT CONTRAST: HISTORY: abdominal pain. COMPARISON: none. TECHNIQUE: Helical CT in 1.25mm intervals without IV contrast. Sagittal and coronal reconstructions. FINDINGS: Lung bases: Normal. Liver: Normal. Biliary system: Cholecystectomy is suspected. No biliary dilatation is appreciated. Pancreas: Normal. Spleen: Normal. Kidneys/ureters/bladder: Normal. Adrenal glands: Normal. Aorta: Normal. Intestines: Within normal limits given no oral contrast was administered. Appendix: Not identified, correlate with surgical history. Pelvic viscera: Hysterectomy. Ascites: None. Adenopathy: There are a few mildly enlarged left periaortic lymph nodes with mild surrounding fat stranding. The largest lymph node measures 1.8 cm on image 148, series 2. No other enlarged lymph nodes are detected. Musculoskeletal: Mild thoracolumbar spondylosis. No fracture or suspicious bony lesion. Chronic right L4 and L5 transverse process fractures. IMPRESSION: There are a few mildly enlarged and inflamed left periaortic lymph nodes of uncertain etiology. No visceral mass or inflammatory process is identified. Adenitis? I cannot entirely exclude a neoplastic process. Surgical changes as described.
[2017-11-05] MEDS ORDERED: MORPHINE IM ONE (14:07)
== END 2017-11-05 15:30 | disposition home or self-care (01) ==
LOC: ED 09:52
DX: K85.20 Alcohol induced acute pancreatitis without necrosis or infection (principal); K75.9 Inflammatory liver disease, unspecified; R59.1 Generalized enlarged lymph nodes; F17.200 Nicotine dependence, unspecified, uncomplicated; M16.12 Unilateral primary osteoarthritis, left hip; E11.9 Type 2 diabetes mellitus without complications; I10 Essential (primary) hypertension; E78.00 Pure hypercholesterolemia, unspecified; Z90.49 Acquired absence of other specified parts of digestive tract; Z90.710 Acquired absence of both cervix and uterus; Z79.84 Long term (current) use of oral hypoglycemic drugs; Z88.6 Allergy status to analgesic agent; Z88.0 Allergy status to penicillin
CPT/HCPCS: 36415; 74176; 80053; 81001; 83690; 85025; 96372; 99284; J1885; J2270

== ENCOUNTER 2017-11-15 10:12 | Emergency (ER) | payer BC, OTHER ==
[2017-11-15 10:41] VITALS: BP 139/88
[2017-11-15] MEDS ORDERED: TORADOL IM ONE (11:30)
--- NOTE | 2017-11-15 11:44 | Emergency Department Report ---
ED Back Pain/Injury HPI - General Chief Complaint: Back Pain/Injury Stated Complaint: BACK PAIN Time Seen by Provider: 11/15/17 11:22 Source: patient Limitations: No Limitations - History of Present Illness Initial Comments: This is a 57-year-old female nontoxic, well nourished in appearance, no acute signs of distress presents to the ED with c/o of acute on chronic low back pain. 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 Patient denies any direct trauma to the region. Patient stated back pain radiates to bilateral lower extremities intermittent. Denies any dysuria, polyuria, hematuria. Patient denies any flank pain, abdominal pain, nausea, vomiting, chest pain, shortness of breath, fever, chills, numbness or tingling. Patient denies any bladder or bowel instability. Patient states past medical history of arthritis, CVA, diabetes and hypertension. Allergies include codeine and penicillin. MD Complaint: back pain -: month(s) (1) Similar Symptoms Previously: Yes Place: work Radiation: left leg, right leg Severity: mild Severity scale (0 -10): 8 Quality: aching Consistency: constant Improves With: immobilization, supine, sitting upright Worsens With: movement Context: while lifting, turning/twisting Associated Symptoms: denies other symptoms. denies: confusion, weakness, chest pain, numbness, difficulty walking, cough, difficulty urinating, diaphoresis, incontinence, fever/chills, constipation, headaches, abdominal pain, loss of appetite, malaise, nausea/vomiting, rash, seizure, shortness of breath, syncope - Related Data Home Medications Medication Instructions Recorded Confirmed Last Taken Acetaminophen [Tylenol] 500 mg PO Q4HR 05/18/17 05/18/17 05/17/17 Aspirin [Aspirin BABY CHEW TAB] 81 mg PO QDAY 05/18/17 05/18/17 05/17/17 Losartan [Cozaar] 25 mg PO QDAY 05/18/17 05/18/17 05/17/17 Rosuvastatin Calcium 10 mg PO DAILY 05/18/17 05/18/17 05/17/17 amLODIPine [Norvasc] 10 mg PO DAILY 05/18/17 05/18/17 05/17/17 glipiZIDE [Glucotrol] 5 mg PO QDAY 05/18/17 05/18/17 05/17/17 metFORMIN [Glucophage] 500 mg PO BID 05/18/17 05/18/17 05/17/17 Previous Rx's Medication Instructions Recorded Last Taken Type Meloxicam [Mobic] 7.5 mg PO QDAY #14 tablet 05/18/17 Unknown Rx methylPREDNISolone [Medrol] 4 mg PO QAM #1 tab.ds.pk 05/18/17 Unknown Rx Azithromycin [Zithromax Z-ROBBIN] 250 mg PO QDAY #5 tablet 09/19/17 Unknown Rx D-Methorphan/PE/Acetaminophen 1 each PO Q6H PRN #30 tablet 09/19/17 Unknown Rx [Tylenol Cold Max Day Caplet] Naproxen 250 mg PO Q12HR #20 tablet 09/19/17 Unknown Rx guaiFENesin [Mucinex] 600 mg PO Q12H #20 tab.er.12h 09/19/17 Unknown Rx Ibuprofen [Motrin] 800 mg PO Q8HR PRN #24 tablet 11/05/17 Unknown Rx oxyCODONE /ACETAMINOPHEN [Percocet 1 tab PO Q6HR PRN #16 tablet 11/05/17 Unknown Rx 5/325] Cyclobenzaprine [Flexeril] 10 mg PO QHS PRN #7 tablet 11/15/17 Unknown Rx Ibuprofen [Motrin] 600 mg PO Q8H PRN #30 tablet 11/15/17 Unknown Rx Prednisone [predniSONE 10 mg 10 mg PO .TAPER #1 tab.ds.pk 11/15/17 Unknown Rx (6-Day Pack, 21 Tabs)] Allergies Allergy/AdvReac Type Severity Reaction Status Date / Time codeine Allergy Vomiting Verified 11/15/17 10:39 Penicillins Allergy Hives Verified 11/15/17 10:39 ED Review of Systems ROS: Stated complaint: BACK PAIN Other details as noted in HPI Constitutional: denies: chills, fever Eyes: denies: eye pain, eye discharge, vision change ENT: denies: ear pain, throat pain Respiratory: denies: cough, shortness of breath, wheezing Cardiovascular: denies: chest pain, palpitations Endocrine: no symptoms reported Gastrointestinal: denies: abdominal pain, nausea, diarrhea Genitourinary: denies: urgency, dysuria, discharge Musculoskeletal: back pain. denies: joint swelling, arthralgia Skin: denies: rash, lesions Neurological: denies: headache, weakness, paresthesias Psychiatric: denies: anxiety, depression Hematological/Lymphatic: denies: easy bleeding, easy bruising ED Past Medical Hx - Past Medical History Hx Hypertension: Yes 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 HYSTERECTOMY - Social History Smoking Status: Never Smoker Substance Use Type: None - Medications Home Medications: Home Medications Medication Instructions Recorded Confirmed Last Taken Type Acetaminophen [Tylenol] 500 mg PO Q4HR 05/18/17 05/18/17 05/17/17 History Aspirin [Aspirin BABY CHEW TAB] 81 mg PO QDAY 05/18/17 05/18/17 05/17/17 History Losartan [Cozaar] 25 mg PO QDAY 05/18/17 05/18/17 05/17/17 History Meloxicam [Mobic] 7.5 mg PO QDAY #14 tablet 05/18/17 Unknown Rx Rosuvastatin Calcium 10 mg PO DAILY 05/18/17 05/18/17 05/17/17 History amLODIPine [Norvasc] 10 mg PO DAILY 05/18/17 05/18/17 05/17/17 History glipiZIDE [Glucotrol] 5 mg PO QDAY 05/18/17 05/18/17 05/17/17 History metFORMIN [Glucophage] 500 mg PO BID 05/18/17 05/18/17 05/17/17 History methylPREDNISolone [Medrol] 4 mg PO QAM #1 tab.ds.pk 05/18/17 Unknown Rx Azithromycin [Zithromax Z-ROBBIN] 250 mg PO QDAY #5 tablet 09/19/17 Unknown Rx D-Methorphan/PE/Acetaminophen 1 each PO Q6H PRN #30 tablet 09/19/17 Unknown Rx [Tylenol Cold Max Day Caplet] Naproxen 250 mg PO Q12HR #20 tablet 09/19/17 Unknown Rx guaiFENesin [Mucinex] 600 mg PO Q12H #20 tab.er.12h 09/19/17 Unknown Rx Ibuprofen [Motrin] 800 mg PO Q8HR PRN #24 tablet 11/05/17 Unknown Rx oxyCODONE /ACETAMINOPHEN [Percocet 1 tab PO Q6HR PRN #16 tablet 11/05/17 Unknown Rx 5/325] Cyclobenzaprine [Flexeril] 10 mg PO QHS PRN #7 tablet 11/15/17 Unknown Rx Ibuprofen [Motrin] 600 mg PO Q8H PRN #30 tablet 11/15/17 Unknown Rx Prednisone [predniSONE 10 mg 10 mg PO .TAPER #1 tab.ds.pk 11/15/17 Unknown Rx (6-Day Pack, 21 Tabs)] ED Physical Exam - General Limitations: No Limitations General appearance: alert, in no apparent distress - Head Head exam: Present: atraumatic, normocephalic - Eye Eye exam: Present: normal appearance, PERRL, EOMI Pupils: Present: normal accommodation - ENT ENT exam: Present: normal exam, normal orophraynx, mucous membranes moist, TM's normal bilaterally, normal external ear exam - Neck Neck exam: Present: normal inspection, full ROM. Absent: tenderness, meningismus, lymphadenopathy, thyromegaly - Respiratory Respiratory exam: Present: normal lung sounds bilaterally. Absent: respiratory distress, wheezes, rales, rhonchi, stridor, chest wall tenderness, accessory muscle use, decreased breath sounds, prolonged expiratory - Cardiovascular Cardiovascular Exam: Present: regular rate, normal rhythm, normal heart sounds. Absent: irregular rhythm, systolic murmur, diastolic murmur, rubs, gallop - GI/Abdominal GI/Abdominal exam: Present: soft, normal bowel sounds. Absent: distended, tenderness, guarding, rebound, rigid, diminished bowel sounds - Rectal Rectal exam: Present: deferred - Extremities Exam Extremities exam: Present: normal inspection, full ROM, normal capillary refill. Absent: tenderness, pedal edema, joint swelling, calf tenderness - Back Exam Back exam: Present: normal inspection, full ROM, paraspinal tenderness (lumbar region). Absent: tenderness, CVA tenderness (R), CVA tenderness (L), muscle spasm, vertebral tenderness, rash noted - Expanded Back Exam Expanded Back exam: Absent: saddle anesthesia Back exam: Negative Straight Leg Raising: Left, Right - Neurological Exam Neurological exam: Present: alert, oriented X3, CN II-XII intact, normal gait, reflexes normal - Psychiatric Psychiatric exam: Present: normal affect, normal mood - Skin Skin exam: Present: warm, dry, intact, normal color. Absent: rash ED Course Vital Signs 11/15/17 11/15/17 10:39 11:43 Temperature 99 F Pulse Rate 95 H Respiratory 16 16 Rate Blood Pressure 139/88 O2 Sat by Pulse 98 Oximetry - Reevaluation(s) Reevaluation #1: 11/15/17 11:47 Patient is speaking in full sentences with no signs of distress noted. ED Medical Decision Making - Medical Decision Making This is a 57-year-old female that presents with acute on chronic low back pain. Patient is stable and was examined by me. On examination there is no CVA tenderness or kidney involvement. No flank pain. Denies any urinary symptoms. Patient received Toradol 60 mg IM in the ED which pasted symptoms improving subsided. An x-ray has been obtained of lumbar spine and dictated by radiologist within normal limits. Patient is notified of the x-ray results with no questionable by the patient. Patient discharged with Flexeril, prednisone, and Motrin. Patient was instructed to Follow-up with a primary care doctor in 3-5 days or if symptoms worsen and continue return to emergency room as soon as possible. At time of discharge, the patient does not seem toxic or ill in appearance. No acute signs of distress noted. Patient agrees to discharge treatment plan of care. No further questions noted by the patient. Critical care attestation.: If time is entered above; I have spent that time in minutes in the direct care of this critically ill patient, excluding procedure time. ED Disposition Clinical Impression: Chronic low back pain Qualifiers: Back pain laterality: bilateral Sciatica presence: unspecified whether sciatica present Qualified Code(s): M54.5 - Low back pain Disposition: -01 TO HOME OR SELFCARE Is pt being admited?: No Does the pt Need Aspirin: No Condition: Stable Instructions: Ibuprofen (By mouth), Prednisone (By mouth), Cyclobenzaprine (By mouth), Low Back Strain (ED), Chronic Back Pain (ED) Additional Instructions: Follow-up with your primary care doctor in 3-5 days or if symptoms worsen such as bladder or bowel stability, chest pain, short of breath, numbness or tingling sensation in extremities, headache, dizziness, visual changes, nausea vomiting, or abdominal pain, return back to emergency room as was possible. Take ibuprofen and Flexeril as prescribed. Do not operate heavy machinery while taking Flexeril due to sedation Prescriptions: Cyclobenzaprine [Flexeril] 10 mg PO QHS PRN #7 tablet PRN Reason: Muscle Spasm Ibuprofen [Motrin] 600 mg PO Q8H PRN #30 tablet PRN Reason: Pain Prednisone [predniSONE 10 mg (6-Day Pack, 21 Tabs)] 10 mg PO .TAPER #1 tab.ds.pk Referrals: THI LEVIN MD [Primary Care Provider] - 3-5 Days VICKEY WHEATLEY MD [Staff Physician] - 3-5 Days PRIMARY CARE, [Referring] - 3-5 Days [facility] [Outside] - 3-[address] [facility] [Outside] - 3-5 Days Forms: Work/School Release Form(ED)
--- NOTE | 2017-11-15 13:22 | XRay Report ---
LUMBOSACRAL SPINE, 3 VIEWS: History: Back pain Findings: Moderate degenerative disc disease and facet arthropathy are identified at L3-4, L4-5 and L5-S1. There is no evidence for compression deformity, subluxation or bone lesion. The SI joints are unremarkable. Impression: Lumbar spondylosis. No acute process identified.
== END 2017-11-15 13:41 | disposition home or self-care (01) ==
LOC: ED 10:12
DX: M54.5 Low back pain (principal); G89.29 Other chronic pain; I10 Essential (primary) hypertension
CPT/HCPCS: 72100; 96372; 99283; J1885

== ENCOUNTER 2017-11-28 15:10 | Emergency (ER) | payer BC ==
[2017-11-28 17:57] VITALS: BP 166/91
[2017-11-28 18:27] LABS: Basophils % (Auto) 0.3 % (0.0-1.8); Eosinophils # (Auto) 0.1 K/mm3 (0.0-0.4); Eosinophils % (Auto) 0.9 % (0.0-4.3); Hemoglobin 11.3 gm/dl (10.1-14.3); Lymphocytes # (Auto) 3.7 K/mm3 (1.2-5.4); Lymphocytes % (Auto) 32.5 % (13.4-35.0); Mean Corpuscular HGB Conc 31 % (30-34); Mean Corpuscular Hemoglobin 27 pg (28-32); Mean Corpuscular Volume 85 fl (79-97); Monocytes # (Auto) 1.3 K/mm3 (0.0-0.8); Monocytes % (Auto) 11.1 % (0.0-7.3); Platelet Count 275 K/mm3 (140-440); Red Blood Count 4.26 M/mm3 (3.65-5.03); Red Cell Distribution Width 13.1 % (13.2-15.2)
[2017-11-28 18:48] LABS: BUN/Creatinine Ratio 33; Blood Urea Nitrogen 10 mg/dL (7-17); Calcium 8.9 mg/dL (8.4-10.2); Hemolysis Index 3
[2017-11-29] MEDS ORDERED: TORADOL IM ONE (02:11)
--- NOTE | 2017-11-29 02:15 | Emergency Department Report ---
HPI - General Chief Complaint: Extremity Injury, Upper Time Seen by Provider: 11/29/17 01:33 - HPI HPI: The patient is 57 yo female with a history of diabetes, who presents for evaluation of bilateral hand and lower leg pain. The patient reports on off pain for the past 3 months, recurring yesterday morning upon awakening and 9 AM. Her pain has been constant since, worse in the bilateral hands, 10/10 in severity, throbbing in quality, radiating proximally up the forearm and she has bilaterally, worse with movement. She also reports some transient swelling of the hands and lower legs which resolved prior to my evaluation. She denies trauma or injury to the hands are lower extremities bilaterally, fever, chills, night sweats, color change, loss of sensation or motor function. She shares that she has been noncompliant with metformin. ED Past Medical Hx - Past Medical History Hx Hypertension: Yes 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 HYSTERECTOMY - Social History Smoking Status: Current Every Day Smoker Substance Use Type: None - Medications Home Medications: Home Medications Medication Instructions Recorded Confirmed Last Taken Type Acetaminophen [Tylenol] 500 mg PO Q4HR 05/18/17 05/18/17 05/17/17 History Aspirin [Aspirin BABY CHEW TAB] 81 mg PO QDAY 05/18/17 05/18/17 05/17/17 History Losartan [Cozaar] 25 mg PO QDAY 05/18/17 05/18/17 05/17/17 History Meloxicam [Mobic] 7.5 mg PO QDAY #14 tablet 05/18/17 Unknown Rx Rosuvastatin Calcium 10 mg PO DAILY 05/18/17 05/18/17 05/17/17 History amLODIPine [Norvasc] 10 mg PO DAILY 05/18/17 05/18/17 05/17/17 History glipiZIDE [Glucotrol] 5 mg PO QDAY 05/18/17 05/18/17 05/17/17 History metFORMIN [Glucophage] 500 mg PO BID 05/18/17 05/18/17 05/17/17 History methylPREDNISolone [Medrol] 4 mg PO QAM #1 tab.ds.pk 05/18/17 Unknown Rx Azithromycin [Zithromax Z-ROBBIN] 250 mg PO QDAY #5 tablet 09/19/17 Unknown Rx D-Methorphan/PE/Acetaminophen 1 each PO Q6H PRN #30 tablet 09/19/17 Unknown Rx [Tylenol Cold Max Day Caplet] Naproxen 250 mg PO Q12HR #20 tablet 09/19/17 Unknown Rx guaiFENesin [Mucinex] 600 mg PO Q12H #20 tab.er.12h 09/19/17 Unknown Rx Ibuprofen [Motrin] 800 mg PO Q8HR PRN #24 tablet 11/05/17 Unknown Rx oxyCODONE /ACETAMINOPHEN [Percocet 1 tab PO Q6HR PRN #16 tablet 11/05/17 Unknown Rx 5/325] Cyclobenzaprine [Flexeril] 10 mg PO QHS PRN #7 tablet 11/15/17 Unknown Rx Ibuprofen [Motrin] 600 mg PO Q8H PRN #30 tablet 11/15/17 Unknown Rx Prednisone [predniSONE 10 mg 10 mg PO .TAPER #1 tab.ds.pk 11/15/17 Unknown Rx (6-Day Pack, 21 Tabs)] Cyclobenzaprine HCl [Flexeril 5 MG 5 mg PO Q8HR PRN #15 tab 11/29/17 Unknown Rx TAB] Ibuprofen [Motrin] 800 mg PO Q8HR PRN #15 tablet 11/29/17 Unknown Rx ED Review of Systems ROS: Stated complaint: SWELLING AND PAIN IN BOTH HANDS Other details as noted in HPI Constitutional: denies: fever ENT: denies: throat or neck pain Respiratory: denies: cough, shortness of breath Cardiovascular: denies: chest pain Endocrine: denies unexplained weight loss or gain Gastrointestinal: denies: abdominal pain, nausea Genitourinary: denies: dysuria Musculoskeletal: Reports bilateral hand and lower leg pain denies: leg swelling Skin: denies: rash Neurological: denies: headache Hematological/Lymphatic: denies: easy bleeding or easy bruising Psych: denies sadness or hopelessness Physical Exam - Physical Exam Vital Signs: Vital Signs 11/28/17 17:51 Temperature 98.9 F Pulse Rate 82 Respiratory 20 Rate Blood Pressure 166/91 O2 Sat by Pulse 99 Oximetry Physical Exam: General: well-nourished, well-developed, no acute distress Head: Normocephalic, atraumatic Eyes: normal sclera ENT: Mucous membranes are pale and dry Neck: No neck stiffness, no cervical adenopathy Respiratory: Breath sounds equal bilaterally, no wheezing, rales, or rhonchi Cardio: S1 and S2 present, no murmurs, rubs, gallops, capillary refill is delayed Abdomen: Normoactive bowel sounds, soft abdomen, no tenderness Chest WALL/Back: No tenderness to palpation of the chest wall, no CVA tenderness with percussion Musc: Inspection of the hands and lower leg raise unremarkable bilaterally, no swelling, crepitus, redness or other color changes, tenderness to palpation present to bilateral dorsal hands and anterior distal lower leg shins, sensation , motor function, and pulses intact to the distal upper and lower extremities bilaterally Skin: No rash Neuro: no facial drooping, normal speech Psych: Normal affect ED Course Vital Signs 11/28/17 17:51 Temperature 98.9 F Pulse Rate 82 Respiratory 20 Rate Blood Pressure 166/91 O2 Sat by Pulse 99 Oximetry ED Medical Decision Making - Lab Data Result diagrams: 11/28/17 18:10 11/28/17 18:10 - Medical Decision Making The patient was seen and examined by myself. The patient is placed on a athletic monitor and continuous pulse ox. On initial evaluation, the patient was found to be in no distress. Evaluation orders were placed. The patient is offered an IM dose of Toradol for pain and she refused. Lab results are not concerning, including negative troponin level x3. The patient was reevaluated and reported that their symptoms were markedly improved. The patient is stable for discharge with outpatient follow-up. The patient is given follow-up and return instructions. The patient expressed understanding and agreed with the plan. The patient is discharged in stable condition. Critical care attestation.: If time is entered above; I have spent that time in minutes in the direct care of this critically ill patient, excluding procedure time. ED Disposition Clinical Impression: Bilateral hand pain, Bilateral lower extremity pain, Peripheral neuropathic pain, Acute hyperglycemia Disposition: TO HOME OR SELFCARE Is pt being admited?: No Does the pt Need Aspirin: No Condition: Stable Instructions: Arthralgia (ED), Peripheral Neuropathy (ED) Referrals: CARRIE BIANCHI MD [Primary Care Provider] - 3-5 Days Time of Disposition: 01:46
== END 2017-11-29 02:37 | disposition home or self-care (01) ==
LOC: ED 15:10
DX: E11.42 Type 2 diabetes mellitus with diabetic polyneuropathy (principal); E11.65 Type 2 diabetes mellitus with hyperglycemia; I10 Essential (primary) hypertension; E78.00 Pure hypercholesterolemia, unspecified; F17.200 Nicotine dependence, unspecified, uncomplicated; Z86.73 Personal history of transient ischemic attack (TIA), and cerebral infarction without residual deficits; Z79.82 Long term (current) use of aspirin
CPT/HCPCS: 36415; 80048; 84484; 85025; 93005; 93010; 99284; J1885

== ENCOUNTER 2018-05-08 12:37 | Emergency (ER) | payer SELFPAY ==
[2018-05-08 12:59] VITALS: BP 171/93
[2018-05-08 13:45] LABS: Bilirubin,Urine NEG (Negative); Blood,Urine NEG (Negative); Color,Urine Yellow (Yellow); Hyaline Casts,Urine 1 /LPF; Mucus,Urine 1+ /HPF
[2018-05-08] MEDS ORDERED: ZOFRAN ODT PO ONE (14:09)
[2018-05-08] MEDS ORDERED: NORCO 10/325 PO ONE (14:09)
--- NOTE | 2018-05-08 14:15 | Emergency Department Report ---
ED General Adult HPI - General Chief complaint: Back Pain/Injury Stated complaint: BACK PAIN Time Seen by Provider: 05/08/18 14:04 Source: patient Mode of arrival: Ambulatory Limitations: No Limitations - History of Present Illness Initial comments: Patient complains of back pain that radiates into her right leg that started 1 week ago. The patient describes the pain as an electrical shock that runs through her leg. Patient denies any injury to her back and denies loss of control of her bladder or stool. Patient also denies paresthesias of the perineum. Patient has no abdominal pain, chest pain, headache. Complains of increased frequency of urination and dysuria -: Sudden Location: back Radiation: back, other (right leg) Severity scale (0 -10): 7 Quality: sharp Consistency: constant Improves with: rest Worsens with: movement Associated Symptoms: denies other symptoms Treatments Prior to Arrival: none - Related Data Home Medications Medication Instructions Recorded Confirmed Last Taken Acetaminophen [Tylenol] 500 mg PO Q4HR 05/18/17 05/18/17 05/17/17 Aspirin [Aspirin BABY CHEW TAB] 81 mg PO QDAY 05/18/17 05/18/17 05/17/17 Losartan [Cozaar] 25 mg PO QDAY 05/18/17 05/18/17 05/17/17 Rosuvastatin Calcium 10 mg PO DAILY 05/18/17 05/18/17 05/17/17 amLODIPine [Norvasc] 10 mg PO DAILY 05/18/17 05/18/17 05/17/17 glipiZIDE [Glucotrol] 5 mg PO QDAY 05/18/17 05/18/17 05/17/17 metFORMIN [Glucophage] 500 mg PO BID 05/18/17 05/18/17 05/17/17 Previous Rx's Medication Instructions Recorded Last Taken Type Meloxicam [Mobic] 7.5 mg PO QDAY #14 tablet 05/18/17 Unknown Rx methylPREDNISolone [Medrol] 4 mg PO QAM #1 tab.ds.pk 05/18/17 Unknown Rx Azithromycin [Zithromax Z-ROBBIN] 250 mg PO QDAY #5 tablet 09/19/17 Unknown Rx D-Methorphan/PE/Acetaminophen 1 each PO Q6H PRN #30 tablet 09/19/17 Unknown Rx [Tylenol Cold Max Day Caplet] Naproxen 250 mg PO Q12HR #20 tablet 09/19/17 Unknown Rx guaiFENesin [Mucinex] 600 mg PO Q12H #20 tab.er.12h 09/19/17 Unknown Rx Ibuprofen [Motrin] 800 mg PO Q8HR PRN #24 tablet 11/05/17 Unknown Rx oxyCODONE /ACETAMINOPHEN [Percocet 1 tab PO Q6HR PRN #16 tablet 11/05/17 Unknown Rx 5/325] Cyclobenzaprine [Flexeril] 10 mg PO QHS PRN #7 tablet 11/15/17 Unknown Rx Ibuprofen [Motrin] 600 mg PO Q8H PRN #30 tablet 11/15/17 Unknown Rx Prednisone [predniSONE 10 mg 10 mg PO .TAPER #1 tab.ds.pk 11/15/17 Unknown Rx (6-Day Pack, 21 Tabs)] Cyclobenzaprine HCl [Flexeril 5 MG 5 mg PO Q8HR PRN #15 tab 11/29/17 Unknown Rx TAB] Ibuprofen [Motrin] 800 mg PO Q8HR PRN #15 tablet 11/29/17 Unknown Rx HYDROcodone/APAP 5-325 [[place] 1 each PO Q6HR PRN #20 tablet 05/08/18 Unknown Rx 5/325] Ibuprofen [Motrin] 800 mg PO Q8HR PRN #30 tablet 05/08/18 Unknown Rx predniSONE [Prednisone] 50 mg PO DAILY #5 tablet 05/08/18 Unknown Rx Allergies Allergy/AdvReac Type Severity Reaction Status Date / Time codeine Allergy Vomiting Verified 11/15/17 10:39 Penicillins Allergy Hives Verified 11/15/17 10:39 ED Review of Systems ROS: Stated complaint: BACK PAIN Other details as noted in HPI Comment: All other systems reviewed and negative Constitutional: denies: chills, fever Eyes: denies: eye pain, eye discharge, vision change ENT: denies: ear pain, throat pain Respiratory: denies: cough, shortness of breath, wheezing Cardiovascular: denies: chest pain, palpitations Endocrine: no symptoms reported Gastrointestinal: denies: abdominal pain, nausea, diarrhea Genitourinary: denies: urgency, dysuria, discharge Musculoskeletal: denies: back pain, joint swelling, arthralgia Skin: denies: rash, lesions Neurological: denies: headache, weakness, paresthesias Psychiatric: denies: anxiety, depression Hematological/Lymphatic: denies: easy bleeding, easy bruising ED Past Medical Hx - Past Medical History Hx Hypertension: Yes 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 HYSTERECTOMY - Social History Smoking Status: Current Every Day Smoker Substance Use Type: Alcohol - Medications Home Medications: Home Medications Medication Instructions Recorded Confirmed Last Taken Type Acetaminophen [Tylenol] 500 mg PO Q4HR 05/18/17 05/18/17 05/17/17 History Aspirin [Aspirin BABY CHEW TAB] 81 mg PO QDAY 05/18/17 05/18/17 05/17/17 History Losartan [Cozaar] 25 mg PO QDAY 05/18/17 05/18/17 05/17/17 History Meloxicam [Mobic] 7.5 mg PO QDAY #14 tablet 05/18/17 Unknown Rx Rosuvastatin Calcium 10 mg PO DAILY 05/18/17 05/18/17 05/17/17 History amLODIPine [Norvasc] 10 mg PO DAILY 05/18/17 05/18/17 05/17/17 History glipiZIDE [Glucotrol] 5 mg PO QDAY 05/18/17 05/18/17 05/17/17 History metFORMIN [Glucophage] 500 mg PO BID 05/18/17 05/18/17 05/17/17 History methylPREDNISolone [Medrol] 4 mg PO QAM #1 tab.ds.pk 05/18/17 Unknown Rx Azithromycin [Zithromax Z-ROBBIN] 250 mg PO QDAY #5 tablet 09/19/17 Unknown Rx D-Methorphan/PE/Acetaminophen 1 each PO Q6H PRN #30 tablet 09/19/17 Unknown Rx [Tylenol Cold Max Day Caplet] Naproxen 250 mg PO Q12HR #20 tablet 09/19/17 Unknown Rx guaiFENesin [Mucinex] 600 mg PO Q12H #20 tab.er.12h 09/19/17 Unknown Rx Ibuprofen [Motrin] 800 mg PO Q8HR PRN #24 tablet 02/24/18 Unknown Rx oxyCODONE /ACETAMINOPHEN [Percocet 1 tab PO Q6HR PRN #16 tablet 11/05/17 Unknown Rx 5/325] Cyclobenzaprine [Flexeril] 10 mg PO QHS PRN #7 tablet 11/15/17 Unknown Rx Ibuprofen [Motrin] 600 mg PO Q8H PRN #30 tablet 11/15/17 Unknown Rx Prednisone [predniSONE 10 mg 10 mg PO .TAPER #1 tab.ds.pk 11/15/17 Unknown Rx (6-Day Pack, 21 Tabs)] Cyclobenzaprine HCl [Flexeril 5 MG 5 mg PO Q8HR PRN #15 tab 11/29/17 Unknown Rx TAB] Ibuprofen [Motrin] 800 mg PO Q8HR PRN #15 tablet 11/29/17 Unknown Rx HYDROcodone/APAP 5-325 [[place] 1 each PO Q6HR PRN #20 tablet 05/08/18 Unknown Rx 5/325] Ibuprofen [Motrin] 800 mg PO Q8HR PRN #30 tablet 05/08/18 Unknown Rx predniSONE [Prednisone] 50 mg PO DAILY #5 tablet 05/08/18 Unknown Rx ED Physical Exam - General Limitations: No Limitations General appearance: alert, in no apparent distress - Head Head exam: Present: atraumatic, normocephalic - Eye Eye exam: Present: normal appearance - ENT ENT exam: Present: mucous membranes moist - Neck Neck exam: Present: normal inspection - Respiratory Respiratory exam: Present: normal lung sounds bilaterally. Absent: respiratory distress - Cardiovascular Cardiovascular Exam: Present: regular rate, normal rhythm. Absent: systolic murmur, diastolic murmur, rubs, gallop - GI/Abdominal GI/Abdominal exam: Present: soft, normal bowel sounds. Absent: distended, tenderness - Extremities Exam Extremities exam: Present: normal inspection, other (patient tender to palpation of the right sciatic outlet. Palpation of the area recreates symptoms in the right leg) - Back Exam Back exam: Present: normal inspection - Neurological Exam Neurological exam: Present: alert, oriented X3 - Psychiatric Psychiatric exam: Present: normal affect, normal mood - Skin Skin exam: Present: warm, dry, intact, normal color. Absent: rash ED Course Vital Signs 05/08/18 12:54 Temperature 98.8 F Pulse Rate 92 H Respiratory 18 Rate Blood Pressure 171/93 O2 Sat by Pulse 99 Oximetry ED Medical Decision Making - Medical Decision Making discussed plan of care with patient Critical care attestation.: If time is entered above; I have spent that time in minutes in the direct care of this critically ill patient, excluding procedure time. ED Disposition Clinical Impression: Sciatica, Urgency of urination Disposition: TO HOME OR SELFCARE Is pt being admited?: No Does the pt Need Aspirin: No Condition: Stable Instructions: Sciatica (ED), Dysuria (ED) Additional Instructions: return if worse Prescriptions: HYDROcodone/APAP 5-325 [[place] 5/325] 1 each PO Q6HR PRN #20 tablet PRN Reason: Pain Ibuprofen [Motrin] 800 mg PO Q8HR PRN #30 tablet PRN Reason: pain predniSONE [Prednisone] 50 mg PO DAILY #5 tablet Referrals: PRIMARY CARE, [Primary Care Provider] - 3-5 Days Time of Disposition: 14:15
== END 2018-05-08 14:29 | disposition home or self-care (01) ==
LOC: ED 12:37
DX: M54.31 Sciatica, right side (principal); R39.15 Urgency of urination; R35.0 Frequency of micturition; I10 Essential (primary) hypertension; E11.9 Type 2 diabetes mellitus without complications; M16.12 Unilateral primary osteoarthritis, left hip; E78.00 Pure hypercholesterolemia, unspecified; F17.200 Nicotine dependence, unspecified, uncomplicated; Z90.89 Acquired absence of other organs; Z90.49 Acquired absence of other specified parts of digestive tract; Z90.710 Acquired absence of both cervix and uterus; Z88.5 Allergy status to narcotic agent; Z86.73 Personal history of transient ischemic attack (TIA), and cerebral infarction without residual deficits; Z88.0 Allergy status to penicillin; Z79.84 Long term (current) use of oral hypoglycemic drugs
CPT/HCPCS: 81001; 99283; Q0162

== ENCOUNTER 2018-05-29 15:45 | Emergency (ER) | payer SELFPAY ==
[2018-05-29 16:13] VITALS: BP 163/95
[2018-05-29] MEDS ORDERED: BENADRYL PO ONE ×2 (16:17→16:18)
[2018-05-29] MEDS ORDERED: DECADRON PO ONE (18:32)
--- NOTE | 2018-05-29 18:40 | Emergency Department Report ---
ED General Adult HPI - General Chief complaint: Skin Rash Stated complaint: RASH/HANDS Time Seen by Provider: 05/29/18 18:10 Source: patient Mode of arrival: Ambulatory Limitations: No Limitations - History of Present Illness Initial comments: [facility] of rash on the palms of her hands. Patient states she has pustules on her hands to burst and turn into flat dark lesions on her palms for the last 2 weeks. Patient denies a history of syphilis also denies any lesions on her feet or oral mucosa. -: Sudden Location: upper extremity Radiation: non-radiation Severity scale (0 -10): 0 Improves with: none Worsens with: none Associated Symptoms: denies other symptoms Treatments Prior to Arrival: none - Related Data Home Medications Medication Instructions Recorded Confirmed Last Taken Acetaminophen [Tylenol] 500 mg PO Q4HR 05/18/17 05/18/17 05/17/17 Aspirin [Aspirin BABY CHEW TAB] 81 mg PO QDAY 05/18/17 05/18/17 05/17/17 Losartan [Cozaar] 25 mg PO QDAY 05/18/17 05/18/17 05/17/17 Rosuvastatin Calcium 10 mg PO DAILY 05/18/17 05/18/17 05/17/17 amLODIPine [Norvasc] 10 mg PO DAILY 05/18/17 05/18/17 05/17/17 glipiZIDE [Glucotrol] 5 mg PO QDAY 05/18/17 05/18/17 05/17/17 metFORMIN [Glucophage] 500 mg PO BID 05/18/17 05/18/17 05/17/17 Previous Rx's Medication Instructions Recorded Last Taken Type Meloxicam [Mobic] 7.5 mg PO QDAY #14 tablet 05/18/17 Unknown Rx methylPREDNISolone [Medrol] 4 mg PO QAM #1 tab.ds.pk 05/18/17 Unknown Rx Azithromycin [Zithromax Z-ROBBIN] 250 mg PO QDAY #5 tablet 09/19/17 Unknown Rx D-Methorphan/PE/Acetaminophen 1 each PO Q6H PRN #30 tablet 09/19/17 Unknown Rx [Tylenol Cold Max Day Caplet] Naproxen 250 mg PO Q12HR #20 tablet 09/19/17 Unknown Rx guaiFENesin [Mucinex] 600 mg PO Q12H #20 tab.er.12h 09/19/17 Unknown Rx Ibuprofen [Motrin] 800 mg PO Q8HR PRN #24 tablet 11/05/17 Unknown Rx oxyCODONE /ACETAMINOPHEN [Percocet 1 tab PO Q6HR PRN #16 tablet 11/05/17 Unknown Rx 5/325] Cyclobenzaprine [Flexeril] 10 mg PO QHS PRN #7 tablet 11/15/17 Unknown Rx Ibuprofen [Motrin] 600 mg PO Q8H PRN #30 tablet 11/15/17 Unknown Rx Prednisone [predniSONE 10 mg 10 mg PO .TAPER #1 tab.ds.pk 11/15/17 Unknown Rx (6-Day Pack, 21 Tabs)] Cyclobenzaprine HCl [Flexeril 5 MG 5 mg PO Q8HR PRN #15 tab 11/29/17 Unknown Rx TAB] Ibuprofen [Motrin] 800 mg PO Q8HR PRN #15 tablet 11/29/17 Unknown Rx HYDROcodone/APAP 5-325 [[place] 1 each PO Q6HR PRN #20 tablet 05/08/18 Unknown Rx 5/325] Ibuprofen [Motrin] 800 mg PO Q8HR PRN #30 tablet 05/08/18 Unknown Rx predniSONE [Prednisone] 50 mg PO DAILY #5 tablet 05/08/18 Unknown Rx hydrOXYzine HCL [Atarax] 25 mg PO Q8HR PRN #20 tablet 05/29/18 Unknown Rx predniSONE [Deltasone] 20 mg PO QDAY #15 tab 05/29/18 Unknown Rx Allergies Allergy/AdvReac Type Severity Reaction Status Date / Time codeine Allergy Vomiting Verified 11/15/17 10:39 Penicillins Allergy Hives Verified 11/15/17 10:39 ED Review of Systems ROS: Stated complaint: RASH/HANDS Other details as noted in HPI Constitutional: denies: chills, fever Eyes: denies: eye pain, eye discharge, vision change ENT: denies: ear pain, throat pain Respiratory: denies: cough, shortness of breath, wheezing Cardiovascular: denies: chest pain, palpitations Endocrine: no symptoms reported Gastrointestinal: denies: abdominal pain, nausea, diarrhea Genitourinary: denies: urgency, dysuria, discharge Musculoskeletal: denies: back pain, joint swelling, arthralgia Skin: rash. 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 HYSTERECTOMY - Social History Smoking Status: Current Every Day Smoker Substance Use Type: Alcohol - Medications Home Medications: Home Medications Medication Instructions Recorded Confirmed Last Taken Type Acetaminophen [Tylenol] 500 mg PO Q4HR 05/18/17 05/18/17 05/17/17 History Aspirin [Aspirin BABY CHEW TAB] 81 mg PO QDAY 05/18/17 05/18/17 05/17/17 History Losartan [Cozaar] 25 mg PO QDAY 05/18/17 05/18/17 05/17/17 History Meloxicam [Mobic] 7.5 mg PO QDAY #14 tablet 05/18/17 Unknown Rx Rosuvastatin Calcium 10 mg PO DAILY 05/18/17 05/18/17 05/17/17 History amLODIPine [Norvasc] 10 mg PO DAILY 05/18/17 05/18/17 05/17/17 History glipiZIDE [Glucotrol] 5 mg PO QDAY 05/18/17 05/18/17 05/17/17 History metFORMIN [Glucophage] 500 mg PO BID 05/18/17 05/18/17 05/17/17 History methylPREDNISolone [Medrol] 4 mg PO QAM #1 tab.ds.pk 05/18/17 Unknown Rx Azithromycin [Zithromax Z-ROBBIN] 250 mg PO QDAY #5 tablet 09/19/17 Unknown Rx D-Methorphan/PE/Acetaminophen 1 each PO Q6H PRN #30 tablet 09/19/17 Unknown Rx [Tylenol Cold Max Day Caplet] Naproxen 250 mg PO Q12HR #20 tablet 09/19/17 Unknown Rx guaiFENesin [Mucinex] 600 mg PO Q12H #20 tab.er.12h 09/19/17 Unknown Rx Ibuprofen [Motrin] 800 mg PO Q8HR PRN #24 tablet 11/05/17 Unknown Rx oxyCODONE /ACETAMINOPHEN [Percocet 1 tab PO Q6HR PRN #16 tablet 11/05/17 Unknown Rx 5/325] Cyclobenzaprine [Flexeril] 10 mg PO QHS PRN #7 tablet 11/15/17 Unknown Rx Ibuprofen [Motrin] 600 mg PO Q8H PRN #30 tablet 11/15/17 Unknown Rx Prednisone [predniSONE 10 mg 10 mg PO .TAPER #1 tab.ds.pk 11/15/17 Unknown Rx (6-Day Pack, 21 Tabs)] Cyclobenzaprine HCl [Flexeril 5 MG 5 mg PO Q8HR PRN #15 tab 11/29/17 Unknown Rx TAB] Ibuprofen [Motrin] 800 mg PO Q8HR PRN #15 tablet 11/29/17 Unknown Rx HYDROcodone/APAP 5-325 [[place] 1 each PO Q6HR PRN #20 tablet 05/08/18 Unknown Rx 5/325] Ibuprofen [Motrin] 800 mg PO Q8HR PRN #30 tablet 05/08/18 Unknown Rx predniSONE [Prednisone] 50 mg PO DAILY #5 tablet 05/08/18 Unknown Rx hydrOXYzine HCL [Atarax] 25 mg PO Q8HR PRN #20 tablet 05/29/18 Unknown Rx predniSONE [Deltasone] 20 mg PO QDAY #15 tab 05/29/18 Unknown Rx ED Physical Exam - General Limitations: No Limitations General appearance: alert, in no apparent distress - Head Head exam: Present: atraumatic, normocephalic - Eye Eye exam: Present: normal appearance - ENT ENT exam: Present: mucous membranes moist, other (normal oral mucosal lesions) - Neck Neck exam: Present: normal inspection - Respiratory Respiratory exam: Present: normal lung sounds bilaterally. Absent: respiratory distress - Cardiovascular Cardiovascular Exam: Present: regular rate, normal rhythm. Absent: systolic murmur, diastolic murmur, rubs, gallop - GI/Abdominal GI/Abdominal exam: Present: soft, normal bowel sounds - Extremities Exam Extremities exam: Present: normal inspection - Back Exam Back exam: Present: normal inspection - Neurological Exam Neurological exam: Present: alert, oriented X3 - Psychiatric Psychiatric exam: Present: normal affect, normal mood - Skin Skin exam: Present: warm, dry, intact, normal color, rash (flat dark lesions on the palms and the medial aspect or posterior puckett of the proximal aspect of the palms) ED Course Vital Signs 05/29/18 16:09 Temperature 99.1 F Pulse Rate 91 H Respiratory 18 Rate Blood Pressure 163/95 O2 Sat by Pulse 98 Oximetry ED Medical Decision Making - Medical Decision Making Discussed with patient that I will be doing RPR for evaluation syphilis patient will be treated for her symptoms Critical care attestation.: If time is entered above; I have spent that time in minutes in the direct care of this critically ill patient, excluding procedure time. ED Disposition Clinical Impression: Rash and nonspecific skin eruption Disposition: DC- TO HOME OR SELFCARE Is pt being admited?: No Does the pt Need Aspirin: No Condition: Stable Instructions: Acute Rash (ED) Additional Instructions: return if worse Prescriptions: hydrOXYzine HCL [Atarax] 25 mg PO Q8HR PRN #20 tablet PRN Reason: Itching predniSONE [Deltasone] 20 mg PO QDAY #15 tab Referrals: PRIMARY CAREMD [Primary Care Provider] - 3-5 Days [facility] [Outside] - 3-5 Days [facility] [Provider Group] - 3-5 Days [facility] [Provider Group] - 3-5 Days Time of Disposition: 18:40
[2018-05-29] MEDS ORDERED: DECADRON ONE (19:11)
== END 2018-05-29 19:13 | disposition home or self-care (01) ==
LOC: ED 15:45
DX: R21 Rash and other nonspecific skin eruption (principal); I10 Essential (primary) hypertension; E11.9 Type 2 diabetes mellitus without complications; E78.00 Pure hypercholesterolemia, unspecified; F17.200 Nicotine dependence, unspecified, uncomplicated; M13.852 Other specified arthritis, left hip; Z86.73 Personal history of transient ischemic attack (TIA), and cerebral infarction without residual deficits; Z90.710 Acquired absence of both cervix and uterus; Z90.49 Acquired absence of other specified parts of digestive tract; Z79.899 Other long term (current) drug therapy; Z88.0 Allergy status to penicillin; Z88.4 Allergy status to anesthetic agent
CPT/HCPCS: 36415; 86592; 99283; J8540; J1100

== ENCOUNTER 2018-06-05 06:31 | Inpatient (IN) | payer SELFPAY ==
[2018-06-05 08:38] LABS: Bacteria,Urine 1+ /HPF (Negative); Bilirubin,Urine NEG (Negative); Blood,Urine NEG (Negative); Color,Urine Yellow (Yellow); Mucus,Urine FEW /HPF; Protein,Urine <15 mg/dL mg/dL (Negative)
[2018-06-05 09:01] LABS: Hematocrit 36.2 % (30.3-42.9); Hemoglobin 11.8 gm/dl (10.1-14.3); Mean Corpuscular HGB Conc 33 % (30-34); Mean Corpuscular Hemoglobin 27 pg (28-32); Mean Corpuscular Volume 83 fl (79-97); Platelet Count 245 K/mm3 (140-440); Red Blood Count 4.34 M/mm3 (3.65-5.03); Red Cell Distribution Width 13.5 % (13.2-15.2)
[2018-06-05 09:30] LABS: Alanine Aminotransferase 19 units/L (7-56); Albumin 3.8 g/dL (3.9-5); BUN/Creatinine Ratio 27; Blood Urea Nitrogen 8 mg/dL (7-17); Calcium 9.5 mg/dL (8.4-10.2); Hemolysis Index 15; Lipase 14 units/L (13-60)
[2018-06-05 09:55] LABS: Basophils % (Manual) 0 % (0.0-1.8); Eosinophils % (Manual) 0 % (0.0-4.3); Myelocytes # (Manual) 0.2 K/mm3; Total Cells Counted 100
[2018-06-05 09:56] LABS: Anisocytosis Few
[2018-06-05] MEDS ORDERED: ZOFRAN IV ONE (12:06)
[2018-06-05] MEDS ORDERED: MORPHINE IV ONE ×3 (12:06→22:02)
[2018-06-05] MEDS ORDERED: NACL 0.9% 1000 ML 1,000 ML IV ONE (12:07)
--- NOTE | 2018-06-05 12:10 | Emergency Department Report ---
Blank Doc - Documentation Documentation: Patient presents to the emergency department with a chief complaint of fevers and chills and started on Tuesday and continued into Tuesday evening. Patient states on Tuesday she began to have some abdominal pain with some nausea, vomiting, diarrhea. On exam the patient has rales bilaterally in the abdomen is diffusely tender to palpation. Workup will include further blood work, CT scans of his chest and abdomen, IV fluids with IV medications. Care will be turned over to the Mid Level care provider with me available for consultation
--- NOTE | 2018-06-05 14:35 | Emergency Department Report ---
ED Abdominal Pain HPI - General Chief Complaint: Abdominal Pain Stated Complaint: CHILLS, FEVER,BODY ACHES Time Seen by Provider: 06/05/18 11:01 Source: patient Mode of arrival: Ambulatory Limitations: No Limitations - History of Present Illness Initial Comments: This is a 57-year-old female nontoxic, well nourished in appearance, no acute signs of distress presents to the ED with c/o of subjective fever, chills, nausea and vomiting and abdominal pain1 day. Patient describes vomiting as food content and yellow gastric acid. Patient describes abdominal pain as cramping and aching with level of 3/10 diffuse. Patient also stated has some cough that has some white mucuos. Patient denies chest pain, short of breath, fever, chills, headache, stiff neck, Hemoptysis, numbness or tingling. Patient denies any constipation. Stated has loose stools. Patient denies any recent travels. Patient stated allergies to PCN and Codeine. Patient stated PMH includes ar arthritis, CVA, diabetes, hypertension, appendectomy. MD Complaint: abdominal pain -: days(s) (1) Location: diffuse Radiation: none Severity: mild Severity scale (0 -10): 3 Quality: cramping, aching Consistency: constant Improves With: nothing Worsens With: nothing Associated Symptoms: nausea, vomiting, diarrhea, fever, chills. denies: constipation, dysuria, hematemesis, hematochezia, melena, hematuria, anorexia, syncope - Related Data Home Medications Medication Instructions Recorded Confirmed Last Taken Aspirin [Aspirin BABY CHEW TAB] 81 mg PO QDAY 05/18/17 06/05/18 05/17/17 amLODIPine [Norvasc] 10 mg PO DAILY 05/18/17 06/05/18 05/17/17 Allergies Allergy/AdvReac Type Severity Reaction Status Date / Time codeine Allergy Vomiting Verified 11/15/17 10:39 Penicillins Allergy Hives Verified 11/15/17 10:39 ED Review of Systems ROS: Stated complaint: CHILLS, FEVER,BODY ACHES Other details as noted in HPI Constitutional: chills, fever Eyes: denies: eye pain, eye discharge, vision change ENT: denies: ear pain, throat pain Respiratory: denies: cough, shortness of breath, wheezing Cardiovascular: denies: chest pain, palpitations Endocrine: no symptoms reported Gastrointestinal: abdominal pain, nausea, vomiting, diarrhea Genitourinary: denies: urgency, dysuria, discharge Musculoskeletal: denies: back pain, joint swelling, arthralgia Skin: denies: rash, lesions Neurological: denies: headache, weakness, paresthesias Psychiatric: denies: anxiety, depression Hematological/Lymphatic: denies: easy bleeding, easy bruising ED Past Medical Hx - Past Medical History Previous Medical History?: Yes Hx Hypertension: Yes Hx CVA: Yes ("in right eye" in January 2016) Hx Diabetes: Yes (type 2) Hx Arthritis: Yes (left hip) Additional medical history: high cholesterol - Surgical History Past Surgical History?: Yes Hx Cholecystectomy: Yes Hx Appendectomy: Yes Hx Breast Surgery: Yes (BREAST REDUCTION) Additional Surgical History: X 2. HYSTERECTOMY. surgery to remove gallstones - Social History Smoking Status: Current Every Day Smoker Substance Use Type: None - Medications Home Medications: Home Medications Medication Instructions Recorded Confirmed Last Taken Type Aspirin [Aspirin BABY CHEW TAB] 81 mg PO QDAY 05/18/17 06/05/18 05/17/17 History amLODIPine [Norvasc] 10 mg PO DAILY 05/18/17 06/05/18 05/17/17 History ED Physical Exam - General Limitations: No Limitations General appearance: alert, in no apparent distress - Head Head exam: Present: atraumatic, normocephalic - Eye Eye exam: Present: normal appearance Pupils: Present: normal accommodation - ENT ENT exam: Present: normal exam, mucous membranes moist - Neck Neck exam: Present: normal inspection, full ROM. Absent: tenderness, meningismus, lymphadenopathy - Respiratory Respiratory exam: Present: normal lung sounds bilaterally, rales (bilateral). Absent: respiratory distress, wheezes, rhonchi, stridor, chest wall tenderness, accessory muscle use, decreased breath sounds, prolonged expiratory - Cardiovascular Cardiovascular Exam: Present: regular rate, normal rhythm, normal heart sounds. Absent: irregular rhythm, systolic murmur, diastolic murmur, rubs, gallop - GI/Abdominal GI/Abdominal exam: Present: soft, tenderness (diffuse), normal bowel sounds. Absent: distended, guarding, rebound, rigid, diminished bowel sounds, hyperactive bowel sounds, hypoactive bowel sounds, mass, pulsatile mass - Expanded GI/Abdominal Exam Expanded GI/Abdominal exam: Absent: psoas sign, Andrews's sign, Rovsing's sign, tenderness at Mcburney's Point, ascites - Rectal Rectal exam: Present: deferred - Extremities Exam Extremities exam: Present: normal inspection, full ROM, normal capillary refill - Back Exam Back exam: Present: normal inspection, full ROM. Absent: tenderness, CVA tenderness (R), CVA tenderness (L) - Neurological Exam Neurological exam: Present: alert, oriented X3, normal gait - Psychiatric Psychiatric exam: Present: normal affect, normal mood - Skin Skin exam: Present: warm, dry, intact, normal color. Absent: rash ED Course Vital Signs 06/05/18 06/05/18 07:56 11:31 Temperature 99.5 F 99.4 F Pulse Rate 98 H 88 Respiratory 18 16 Rate Blood Pressure 145/77 Blood Pressure 130/72 [Right] O2 Sat by Pulse 95 95 Oximetry - Reevaluation(s) Reevaluation #1: 06/05/18 14:37 Patient is speaking in full sentences with no signs of distress noted. - Consultations Consultation #1: 06/05/18 15:17 Patient has been consulted with Kelly Gaston about patient history, physical exam , and labs/Ct results and examined and screened patient and agrees to ED plan of care and admission. ED Medical Decision Making - Lab Data Result diagrams: 06/05/18 08:44 06/05/18 08:44 - Medical Decision Making This is a 57-year-old female who presents with bilateral pneumonia. Patient is stable and was examined by me and Dr. Albert. CT of abdomen and chest obtained. Dictated by radiologist. Patient notified of the CT report. Labs obtained with leukocytosis. Sepsis protocol initiated. Patient to be admitted with hospitalist Dr. Casas. Patient received Levaquin. Blood cultures and lactic acid pending. Patient put on monitor. At time of admission, the patient does not seem toxic or ill in appearance. No acute signs of distress noted. Patient agrees to admission treatment plan of care. No further questions noted by the patient. Critical care attestation.: If time is entered above; I have spent that time in minutes in the direct care of this critically ill patient, excluding procedure time. ED Disposition Clinical Impression: Bilateral pneumonia Qualifiers: Pneumonia type: due to unspecified organism Lung location: unspecified part of lung Qualified Code(s): J18.9 - Pneumonia, unspecified organism Leukocytosis Qualifiers: Leukocytosis type: unspecified Qualified Code(s): D72.829 - Elevated white blood cell count, unspecified Disposition: DC-09 OP ADMIT IP TO THIS HOSP Is pt being admited?: Yes Condition: Stable Instructions: Bacterial Pneumonia (ED), Abdominal Pain (ED) Referrals: PRIMARY CARE, [Primary Care Provider] - 3-5 Days
[2018-06-05] MEDS ORDERED: LEVAQUIN 750MG/150ML 750 MG/150 ML BAG IV ONE (15:01)
--- NOTE | 2018-06-05 15:03 | Cat Scan Report ---
CT CHEST WITHOUT CONTRAST: HISTORY: Pneumonia. COMPARISON: none. TECHNIQUE: Helical CT in 1.25mm intervals without IV contrast. Sagittal and coronal reformatted images. FINDINGS: Thyroid gland: Normal. Tracheobronchial tree: Normal. Esophagus: Normal. Heart: Borderline to mild cardiomegaly. Pericardium: Normal. Mediastinum: Normal. Lung [place]: Patchy bilateral groundglass infiltrates are identified. No consolidation or mass. Pleural Spaces: Normal. Musculoskeletal: Intact. IMPRESSION: Borderline heart size. Patchy bilateral lung infiltrates are identified which could represent pulmonary edema or infectious infiltrates. Please correlate with the clinical presentation of the patient.
--- NOTE | 2018-06-05 15:06 | Cat Scan Report ---
CT ABDOMEN PELVIS WITHOUT CONTRAST: HISTORY: . COMPARISON: 11/05/17. TECHNIQUE: Helical CT in 1.25mm intervals without IV contrast. Sagittal and coronal reconstructions. FINDINGS: Liver: Normal. Biliary system: Cholecystectomy. Pancreas: Normal. Spleen: Normal. Kidneys/ureters/bladder: Normal. Adrenal glands: Normal. Aorta: Mild diffuse calcifications. No aneurysm. Intestines: Within normal limits given no oral contrast was administered. Appendix: Not confidently identified, correlate with surgical history. Pelvic viscera: Hysterectomy. Ascites: None. Adenopathy: There are a few mildly enlarged left para-aortic lymph nodes. The largest lymph node measures 1.9 cm which is not significantly changed since 11/05/17. Musculoskeletal: Intact. IMPRESSION: No acute abdominal process is identified. Mildly enlarged left periaortic lymph nodes of uncertain etiology which are unchanged since 11/05/17. Surgical changes as described.
--- NOTE | 2018-06-05 15:22 | Emergency Department Report ---
Blank Doc - Documentation Documentation: History the patient was being worked up for abdominal pain and thus sepsis/ pneumonia was not in the initial differential diagnosis upon reviewing the CAT scan of the patient's chest at that time sepsis protocol was started.
[2018-06-05] MEDS ORDERED: NACL 0.9% 1000 ML IV ONE (15:23)
[2018-06-05] MEDS ORDERED: TYLENOL PO PRN (19:37)
[2018-06-05] MEDS ORDERED: TYLENOL ONE (19:42)
[2018-06-05] MEDS ORDERED: SODIUM CHLORIDE FLUSH SYRINGE 10 ML IV PRN (23:17)
[2018-06-05] MEDS ORDERED: DILAUDID IV PRN (23:17)
[2018-06-05] MEDS ORDERED: ZOFRAN IV PRN (23:17)
[2018-06-05] MEDS ORDERED: AMBIEN PO PRN (23:17)
--- NOTE | 2018-06-05 23:24 | History and Physical Report ---
History of Present Illness Date of examination: 06/05/18 Date of admission: 06/05/18 17:52 Chief complaint: Chief complaint: Fever and chills for 1 day Upper abdominal pain for 1 day History of present illness: History of Present Illness: 57-year-old female with history of hypertension comes in for fever chills nausea vomiting of one day duration. Also upper abdominal pain of one-day duration. One vomiting 2. Abdominal pain is about a 5 on a scale of 1-10. Dull to sharp. Cough for 2 years mucoid sputum. Fever and chills and intermittent. No hemoptysis. No headache. No recent exposure or travel. 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 HYSTERECTOMY. surgery to remove gallstones Social History Smoking Status: Current Every Day Smoker Substance Use Type: None Family history Htn - Medications Home Medications: Home Medications Medication Instructions Recorded Confirmed Last Taken Type Aspirin [Aspirin BABY CHEW TAB] 81 mg PO QDAY 05/18/17 06/05/18 05/17/17 History amLODIPine [Norvasc] 10 mg PO DAILY 05/18/17 06/05/18 05/17/17 History Review of systems ROS: Stated complaint: CHILLS, FEVER,BODY ACHES Other details as noted in HPI Constitutional: chills, fever Eyes: denies: eye pain, eye discharge, vision change ENT: denies: ear pain, throat pain Respiratory: denies: cough, shortness of breath, wheezing Cardiovascular: denies: chest pain, palpitations Endocrine: no symptoms reported Gastrointestinal: abdominal pain, nausea, vomiting, diarrhea Genitourinary: denies: urgency, dysuria, discharge Musculoskeletal: denies: back pain, joint swelling, arthralgia Skin: denies: rash, lesions Neurological: denies: headache, weakness, paresthesias Psychiatric: denies: anxiety, depression Hematological/Lymphatic: denies: easy bleeding, easy bruising Medications and Allergies Allergies Allergy/AdvReac Type Severity Reaction Status Date / Time codeine Allergy Vomiting Verified 11/15/17 10:39 Penicillins Allergy Hives Verified 11/15/17 10:39 Home Medications Medication Instructions Recorded Confirmed Last Taken Type Aspirin [Aspirin BABY CHEW TAB] 81 mg PO QDAY 05/18/17 06/05/18 05/17/17 History amLODIPine [Norvasc] 10 mg PO DAILY 05/18/17 06/05/18 05/17/17 History Active Meds: Active Medications Acetaminophen (Tylenol) 650 mg PO Q4H PRN PRN Reason: Pain, Mild (1-3) Last Admin: 06/05/18 19:40 Dose: 650 mg Acetaminophen (Tylenol) 650 mg PO Q4H PRN PRN Reason: Pain MILD(1-3)/Fever >100.5/ROSALES Amlodipine Besylate (Norvasc) 10 mg PO DAILY ELIOT Aspirin (Baby Aspirin) 81 mg PO QDAY ELIOT Hydromorphone HCl (Dilaudid) 0.5 mg IV Q3H PRN PRN Reason: Pain , Severe (7-10) Azithromycin 500 mg/ Sodium (Chloride) 250 mls @ 250 mls/hr IV Q24HR ELIOT Ceftriaxone Sodium (Rocephin/Ns 2 Gm/100 Ml) 2 gm in 100 mls @ 200 mls/hr IV Q24HR ELIOT; Protocol Morphine Sulfate (Morphine) 2 mg IV Q4H PRN PRN Reason: Pain, Moderate (4-6) Exam - Physical Exam Narrative exam: Lying in bed comfortably - Constitutional Vitals: Temp Pulse Resp BP Pulse Ox 103.0 F H 102 H 36 H 146/76 97 06/05/18 20:04 06/05/18 20:04 06/05/18 20:04 06/05/18 20:04 06/05/18 20:04 General appearance: Present: no acute distress, well-nourished - EENT Eyes: Present: PERRL ENT: hearing intact, clear oral mucosa - Neck Neck: Present: supple, normal ROM - Respiratory Respiratory effort: normal Respiratory: bilateral: CTA, rales (scattered rales) - Cardiovascular Heart rate: 76 Rhythm: regular Heart Sounds: Present: S1 & S2. Absent: rub, click - Extremities Extremities: no ischemia, pulses intact, pulses symmetrical, No edema Peripheral Pulses: within normal limits - Abdominal General gastrointestinal: Present: soft, non-tender, non-distended, normal bowel sounds Female genitourinary: Present: normal - Integumentary Integumentary: Present: clear, warm, dry - Musculoskeletal Musculoskeletal: gait normal, strength equal bilaterally - Psychiatric Psychiatric: appropriate mood/affect, intact judgment & insight - Neurologic Neurologic: CNII-XII intact, moves all extremities - Allied Health Allied health notes reviewed: nursing, case management Results - Labs CBC & Chem 7: 06/05/18 08:44 06/05/18 08:44 Labs: Laboratory Last Values WBC 21.0 K/mm3 (4.5-11.0) H 06/05/18 08:44 RBC 4.34 M/mm3 (3.65-5.03) 06/05/18 08:44 Hgb 11.8 gm/dl (10.1-14.3) 06/05/18 08:44 Hct 36.2 % (30.3-42.9) 06/05/18 08:44 MCV 83 fl (79-97) 06/05/18 08:44 MCH 27 pg (28-32) L 06/05/18 08:44 MCHC 33 % (30-34) 06/05/18 08:44 RDW 13.5 % (13.2-15.2) 06/05/18 08:44 Plt Count 245 K/mm3 (140-440) 06/05/18 08:44 Add Manual Diff Complete 06/05/18 08:44 Total Counted 100 06/05/18 08:44 Seg Neuts % (Manual) 82.0 % (40.0-70.0) H 06/05/18 08:44 Band Neutrophils % 0 % 06/05/18 08:44 Lymphocytes % (Manual) 13.0 % (13.4-35.0) L 06/05/18 08:44 Reactive Lymphs % (Man) 0 % 06/05/18 08:44 Monocytes % (Manual) 4.0 % (0.0-7.3) 06/05/18 08:44 Eosinophils % (Manual) 0 % (0.0-4.3) 06/05/18 08:44 Basophils % (Manual) 0 % (0.0-1.8) 06/05/18 08:44 Metamyelocytes % 0 % 06/05/18 08:44 Myelocytes % 1.0 % 06/05/18 08:44 Promyelocytes % 0 % 06/05/18 08:44 Blast Cells % 0 % 06/05/18 08:44 Nucleated RBC % Not Reportable 06/05/18 08:44 Seg Neutrophils # Man 17.2 K/mm3 (1.8-7.7) H 06/05/18 08:44 Band Neutrophils # 0.0 K/mm3 06/05/18 08:44 Lymphocytes # (Manual) 2.7 K/mm3 (1.2-5.4) 06/05/18 08:44 Abs React Lymphs (Man) 0.0 K/mm3 06/05/18 08:44 Monocytes # (Manual) 0.8 K/mm3 (0.0-0.8) 06/05/18 08:44 Eosinophils # (Manual) 0.0 K/mm3 (0.0-0.4) 06/05/18 08:44 Basophils # (Manual) 0.0 K/mm3 (0.0-0.1) 06/05/18 08:44 Metamyelocytes # 0.0 K/mm3 06/05/18 08:44 Myelocytes # 0.2 K/mm3 06/05/18 08:44 Promyelocytes # 0.0 K/mm3 06/05/18 08:44 Blast Cells # 0.0 K/mm3 06/05/18 08:44 WBC Morphology Not Reportable 06/05/18 08:44 Hypersegmented Neuts Not Reportable 06/05/18 08:44 Hyposegmented Neuts Not Reportable 06/05/18 08:44 Hypogranular Neuts Not Reportable 06/05/18 08:44 Smudge Cells Not Reportable 06/05/18 08:44 Toxic Granulation Not Reportable 06/05/18 08:44 Toxic Vacuolation Not Reportable 06/05/18 08:44 Dohle Bodies Not Reportable 06/05/18 08:44 Pelger-Huet Anomaly Not Reportable 06/05/18 08:44 Araceli Rods Not Reportable 06/05/18 08:44 Platelet Estimate Appears normal 06/05/18 08:44 Clumped Platelets Not Reportable 06/05/18 08:44 Plt Clumps, EDTA Not Reportable 06/05/18 08:44 Large Platelets Not Reportable 06/05/18 08:44 Giant Platelets Not Reportable 06/05/18 08:44 Platelet Satelliting Not Reportable 06/05/18 08:44 Plt Morphology Comment Not Reportable 06/05/18 08:44 RBC Morphology Not Reportable 06/05/18 08:44 Dimorphic RBCs Not Reportable 06/05/18 08:44 Polychromasia Not Reportable 06/05/18 08:44 Hypochromasia Not Reportable 06/05/18 08:44 Poikilocytosis Not Reportable 06/05/18 08:44 Anisocytosis Few 06/05/18 08:44 Microcytosis Not Reportable 06/05/18 08:44 Macrocytosis Not Reportable 06/05/18 08:44 Spherocytes Not Reportable 06/05/18 08:44 Pappenheimer Bodies Not Reportable 06/05/18 08:44 Sickle Cells Not Reportable 06/05/18 08:44 Target Cells Not Reportable 06/05/18 08:44 Tear Drop Cells Not Reportable 06/05/18 08:44 Ovalocytes Not Reportable 06/05/18 08:44 Helmet Cells Not Reportable 06/05/18 08:44 Coburn-[place] Bodies Not Reportable 06/05/18 08:44 Turner Rings Not Reportable 06/05/18 08:44 Graham Cells Not Reportable 06/05/18 08:44 Bite Cells Not Reportable 06/05/18 08:44 Crenated Cell Not Reportable 06/05/18 08:44 Elliptocytes Few 06/05/18 08:44 Acanthocytes (Spur) Not Reportable 06/05/18 08:44 Rouleaux Not Reportable 06/05/18 08:44 Hemoglobin C Crystals Not Reportable 06/05/18 08:44 Schistocytes Not Reportable 06/05/18 08:44 Malaria parasites Not Reportable 06/05/18 08:44 Roberto Bodies Not Reportable 06/05/18 08:44 Hem Pathologist Commnt No 06/05/18 08:44 Sodium 137 mmol/L (137-145) 06/05/18 08:44 Potassium 3.7 mmol/L (3.6-5.0) 06/05/18 08:44 Chloride 101.7 mmol/L (98-107) 06/05/18 08:44 Carbon Dioxide 24 mmol/L (22-30) 06/05/18 08:44 Anion Gap 15 mmol/L 06/05/18 08:44 BUN 8 mg/dL (7-17) 06/05/18 08:44 Creatinine 0.3 mg/dL (0.7-1.2) L 06/05/18 08:44 Estimated GFR > 60 ml/min 06/05/18 08:44 BUN/Creatinine Ratio 27 % 06/05/18 08:44 Glucose 141 mg/dL (65-100) H 06/05/18 08:44 POC Glucose 207 (70-105) H 06/05/18 21:07 Lactic Acid 1.50 mmol/L (0.7-2.0) 06/05/18 15:40 Calcium 9.5 mg/dL (8.4-10.2) 06/05/18 08:44 Total Bilirubin 1.10 mg/dL (0.1-1.2) 06/05/18 08:44 AST 19 units/L (5-40) 06/05/18 08:44 ALT 19 units/L (7-56) 06/05/18 08:44 Alkaline Phosphatase 136 units/L (35-129) H 06/05/18 08:44 Total Creatine Kinase 26 units/L (30-135) L 06/05/18 15:40 NT-Pro-B Natriuret Pep 473.9 pg/mL (0-900) 06/05/18 08:44 Total Protein 7.3 g/dL (6.3-8.2) 06/05/18 08:44 Albumin 3.8 g/dL (3.9-5) L 06/05/18 08:44 Albumin/Globulin Ratio 1.1 % 06/05/18 08:44 Lipase 14 units/L (13-60) 06/05/18 08:44 Urine Color Yellow (Yellow) 06/05/18 08:14 Urine Turbidity Clear (Clear) 06/05/18 08:14 Urine pH 5.0 (5.0-7.0) 06/05/18 08:14 Ur Specific [place] 1.016 (1.003-1.030) 06/05/18 08:14 Urine Protein <15 mg/dl mg/dL (Negative) 06/05/18 08:14 Urine Glucose (UA) Neg mg/dL (Negative) 06/05/18 08:14 Urine Ketones Neg mg/dL (Negative) 06/05/18 08:14 Urine Blood Neg (Negative) 06/05/18 08:14 Urine Nitrite Neg (Negative) 06/05/18 08:14 Urine Bilirubin Neg (Negative) 06/05/18 08:14 Urine Urobilinogen 4.0 mg/dL (<2.0) 06/05/18 08:14 Ur Leukocyte Esterase Lg (Negative) 06/05/18 08:14 Urine WBC (Auto) 7.0 /HPF (0.0-6.0) H 06/05/18 08:14 Urine RBC (Auto) 8.0 /HPF (0.0-6.0) 06/05/18 08:14 U Epithel Cells (Auto) 1.0 /HPF (0-13.0) 06/05/18 08:14 Urine Bacteria (Auto) 1+ /HPF (Negative) 06/05/18 08:14 Urine Mucus Few /HPF 06/05/18 08:14 Blood Type A POSITIVE 06/05/18 15:46 Antibody Screen Negative 06/05/18 15:46 Short CBC 06/05/18 Range/Units 08:44 WBC 21.0 H (4.5-11.0) K/mm3 Hgb 11.8 (10.1-14.3) gm/dl Hct 36.2 (30.3-42.9) % Plt Count 245 (140-440) K/mm3 BMP 06/05/18 08:44 Sodium 137 Potassium 3.7 Chloride 101.7 Carbon Dioxide 24 BUN 8 Creatinine 0.3 L Glucose 141 H Calcium 9.5 Cardiac Enzymes 06/05/18 Range/Units 15:40 Total Creatine Kinase 26 L (30-135) units/L Liver Function 06/05/18 Range/Units 08:44 Total Bilirubin 1.10 (0.1-1.2) mg/dL AST 19 (5-40) units/L ALT 19 (7-56) units/L Alkaline Phosphatase 136 H (35-129) units/L Albumin 3.8 L (3.9-5) g/dL Urine 06/05/18 Range/Units 08:14 Urine Color Yellow (Yellow) Urine pH 5.0 (5.0-7.0) Ur Specific [place] 1.016 (1.003-1.030) Urine Protein <15 mg/dl (Negative) mg/dL Urine Glucose (UA) Neg (Negative) mg/dL - Imaging and Cardiology Imaging and Cardiology: CT chest IMPRESSION: Borderline heart size. Patchy bilateral lung infiltrates are identified which could represent pulmonary edema or infectious infiltrates. Please correlate with the clinical presentation of the patient. Abdominal CT IMPRESSION: No acute abdominal process is identified. Mildly enlarged left periaortic lymph nodes of uncertain etiology which are unchanged since 11/05/17. Surgical changes as described. Assessment and Plan Advance Directives: Yes (full code) VTE prophylaxis?: Chemical Plan of care discussed with patient/family: Yes - Patient Problems (1) Bilateral pneumonia Current Visit: Yes Status: Acute Qualifiers: Pneumonia type: due to unspecified organism Lung location: unspecified part of lung Qualified Code(s): J18.9 - Pneumonia, unspecified organism Plan to address problem: Patient initiated on IV Rocephin and Zithromax (2) SIRS (systemic inflammatory response syndrome) Current Visit: Yes Status: Acute Plan to address problem: Patient's clinical picture consistent with systemic inflammatory response syndrome Patient has leukocytosis and bilateral infiltrates IV antibiotics IV fluids (3) Hypertension Current Visit: Yes Status: Chronic Qualifiers: Hypertension type: essential hypertension Qualified Code(s): I10 - Essential (primary) hypertension Plan to address problem: Continue antihypertensives (4) T2DM (type 2 diabetes mellitus) Current Visit: Yes Status: Chronic Qualifiers: Diabetes mellitus prison insulin use: without termite treater use Plan to address problem: Coverage for now Check hemoglobin A1c (5) DVT prophylaxis Current Visit: Yes Status: Acute Plan to address problem: On Lovenox
[2018-06-05] MEDS ORDERED: NACL 0.9% 1000 ML 1,000 ML IV SCH (23:45)
[2018-06-06] MEDS: MORPHINE IV PRN ×3 (03:22→21:41)
[2018-06-06] MEDS: TYLENOL PO PRN ×2 (03:42→21:42)
[2018-06-06 06:07] LABS: Basophils % (Auto) 0.2 % (0.0-1.8); Eosinophils % (Auto) 0.2 % (0.0-4.3); Hemoglobin 10.2 gm/dl (10.1-14.3); Lymphocytes % (Auto) 20.8 % (13.4-35.0); Mean Corpuscular HGB Conc 33 % (30-34); Mean Corpuscular Hemoglobin 28 pg (28-32); Mean Corpuscular Volume 85 fl (79-97); Monocytes # (Auto) 2.1 K/mm3 (0.0-0.8); Monocytes % (Auto) 14.8 % (0.0-7.3); Platelet Count 188 K/mm3 (140-440); Red Blood Count 3.66 M/mm3 (3.65-5.03); Red Cell Distribution Width 13.4 % (13.2-15.2)
[2018-06-06 06:21] LABS: BUN/Creatinine Ratio 15; Blood Urea Nitrogen 6 mg/dL (7-17); Calcium 8.9 mg/dL (8.4-10.2); Hemolysis Index 0
[2018-06-06] MEDS: HumaLOG SUB-Q SCH ×4 (08:15→22:00)
[2018-06-06] MEDS: BABY ASPIRIN PO SCH ×2 (10:27→15:17)
[2018-06-06] MEDS: ROCEPHIN/NS 2 GM/100 ML 2 GM/100 ML BAG IV SCH ×3 (10:27→15:17)
[2018-06-06] MEDS: NORVASC PO SCH ×2 (10:27→15:17)
[2018-06-06] MEDS: SODIUM CHLORIDE FLUSH SYRINGE 10 ML IV SCH ×3 (10:29→21:45)
[2018-06-06] MEDS: ZITHROMAX 500 MG in NACL 0.9% 250ML 250 ML IV SCH ×2 (10:33→15:30)
--- NOTE | 2018-06-06 16:15 | Progress Note ---
Assessment and Plan - Patient Problems (1) Bilateral pneumonia Current Visit: Yes Status: Acute Qualifiers: Pneumonia type: due to unspecified organism Lung location: unspecified part of lung Qualified Code(s): J18.9 - Pneumonia, unspecified organism Plan to address problem: Patient initiated on IV Rocephin and Zithromax (2) SIRS (systemic inflammatory response syndrome) Current Visit: Yes Status: Acute Plan to address problem: Patient's clinical picture consistent with systemic inflammatory response syndrome Patient has leukocytosis and bilateral infiltrates IV antibiotics IV fluids (3) Hypertension Current Visit: Yes Status: Chronic Qualifiers: Hypertension type: essential hypertension Qualified Code(s): I10 - Essential (primary) hypertension Plan to address problem: Continue antihypertensives (4) T2DM (type 2 diabetes mellitus) Current Visit: Yes Status: Chronic Qualifiers: Diabetes mellitus intermediate accountant insulin use: without intermediate accountant use Plan to address problem: Coverage for now Check hemoglobin A1c (5) DVT prophylaxis Current Visit: Yes Status: Acute Plan to address problem: On Lovenox Subjective Date of service: 06/06/18 Principal diagnosis: Harjit PNA Interval history: Sx better Objective - Exam Narrative Exam: Lying in bed comfortably - Constitutional Vitals: Vital Signs - 12hr 06/06/18 06/06/18 06:13 12:13 Temperature 98.3 F 97.6 F Pulse Rate 71 81 Respiratory 16 20 Rate Blood Pressure 137/73 127/64 O2 Sat by Pulse 96 97 Oximetry General appearance: Present: no acute distress, well-nourished - EENT Eyes: PERRL, EOM intact ENT: hearing intact, clear oral mucosa Ears: bilateral: normal - Neck Neck: supple, normal ROM - Respiratory Respiratory effort: normal Respiratory: bilateral: CTA, rales (SCATTEred) - Breasts Breasts: normal - Cardiovascular Heart rate: 76 Rhythm: regular Heart Sounds: Present: S1 & S2. Absent: gallop, rub Extremities: pulses intact, No edema, normal color, Full ROM - Gastrointestinal General gastrointestinal: Present: soft, non-tender, non-distended, normal bowel sounds - Genitourinary Female genitourinary: normal - Integumentary Integumentary: clear, warm, dry - Musculoskeletal Musculoskeletal: 1, strength equal bilaterally - Neurologic Neurologic: moves all extremities - Psychiatric Psychiatric: memory intact, appropriate mood/affect, intact judgment & insight - Labs CBC & Chem 7: 06/06/18 04:41 06/06/18 04:41 Labs: Abnormal lab results 06/05/18 06/05/18 06/06/18 Range/Units 15:40 21:07 04:41 WBC 14.2 H (4.5-11.0) K/mm3 [place] % (Auto) 14.8 H (0.0-7.3) % [place] # 2.1 H (0.0-0.8) K/mm3 Seg Neutrophils # 9.1 H (1.8-7.7) K/mm3 Sodium (137-145) mmol/L Potassium (3.6-5.0) mmol/L Chloride (98-107) mmol/L Carbon Dioxide (22-30) mmol/L BUN (7-17) mg/dL Creatinine (0.7-1.2) mg/dL Glucose (65-100) mg/dL POC Glucose 207 H (70-105) Total Creatine Kinase 26 L (30-135) units/L 06/06/18 06/06/18 Range/Units 04:41 12:15 WBC (4.5-11.0) K/mm3 [place] % (Auto) (0.0-7.3) % [place] # (0.0-0.8) K/mm3 Seg Neutrophils # (1.8-7.7) K/mm3 Sodium 132 L (137-145) mmol/L Potassium 3.4 L (3.6-5.0) mmol/L Chloride 97.6 L (98-107) mmol/L Carbon Dioxide 21 L (22-30) mmol/L BUN 6 L (7-17) mg/dL Creatinine 0.4 L (0.7-1.2) mg/dL Glucose 163 H (65-100) mg/dL POC Glucose 147 H (70-105) Total Creatine Kinase (30-135) units/L
[2018-06-07] MEDS: MORPHINE IV PRN ×2 (05:53→20:10)
[2018-06-07] MEDS: HumaLOG SUB-Q SCH ×4 (08:30→22:00)
[2018-06-07 09:32] LABS: Hematocrit 34.2 % (30.3-42.9); Hemoglobin 11.3 gm/dl (10.1-14.3); Mean Corpuscular HGB Conc 33 % (30-34); Mean Corpuscular Hemoglobin 28 pg (28-32); Mean Corpuscular Volume 83 fl (79-97); Platelet Count 257 K/mm3 (140-440); Red Cell Distribution Width 13.1 % (13.2-15.2)
[2018-06-07 09:44] LABS: BUN/Creatinine Ratio 30; Blood Urea Nitrogen 6 mg/dL (7-17); Calcium 9.4 mg/dL (8.4-10.2); Hemolysis Index 11
[2018-06-07] MEDS: BABY ASPIRIN PO SCH (10:05)
[2018-06-07] MEDS: NORVASC PO SCH (10:05)
[2018-06-07] MEDS: ROCEPHIN/NS 2 GM/100 ML 2 GM/100 ML BAG IV SCH (10:06)
[2018-06-07] MEDS: ZITHROMAX 500 MG in NACL 0.9% 250ML 250 ML IV SCH (10:06)
[2018-06-07] MEDS: SODIUM CHLORIDE FLUSH SYRINGE 10 ML IV SCH ×2 (10:06→21:35)
--- NOTE | 2018-06-07 10:48 | Progress Note ---
Assessment and Plan Assessment and plan: Sepsis. Patient admitted to med/surg Continue antibiotics Bilateral pneumionia. Continue Rocephin and Zithromax Hypertension. Monitor BP. Continue Norvasc Diet. patient adamant, requesting Regular diet. Full code status History Interval history: Fever, cough Abdominal pain vomiting Hospitalist Physical - Physical exam Narrative exam: GEN:Not in acute distress, lying in bed HEENT: Normocephalic, atraumatic, Neck: supple, No JVD Lungs: Bilateral crackles Heart:S1 and S2 reg, no murmurs, rubs or gallop Abd:soft, non tender, non distended, Normal bowel sounds Ext: No edema, clubbing or cyanosis Neuro: Awake, alert, oriented x 3, no focal signs - Constitutional Vitals: Temp Pulse Resp BP Pulse Ox 98.4 F 76 20 149/79 98 06/07/18 06:57 06/07/18 06:57 06/07/18 06:57 06/07/18 06:57 06/06/18 22:00 General appearance: Present: no acute distress, obese Results - Labs CBC & Chem 7: 06/07/18 09:03 06/07/18 09:03 Labs: Laboratory Last Values WBC 8.8 K/mm3 (4.5-11.0) 06/07/18 09:03 RBC 4.10 M/mm3 (3.65-5.03) 06/07/18 09:03 Hgb 11.3 gm/dl (10.1-14.3) 06/07/18 09:03 Hct 34.2 % (30.3-42.9) 06/07/18 09:03 MCV 83 fl (79-97) 06/07/18 09:03 MCH 28 pg (28-32) 06/07/18 09:03 MCHC 33 % (30-34) 06/07/18 09:03 RDW 13.1 % (13.2-15.2) L 06/07/18 09:03 Plt Count 257 K/mm3 (140-440) 06/07/18 09:03 Lymph % (Auto) 20.8 % (13.4-35.0) 06/06/18 04:41 [place] % (Auto) 14.8 % (0.0-7.3) H 06/06/18 04:41 Eos % (Auto) 0.2 % (0.0-4.3) 06/06/18 04:41 Baso % (Auto) 0.2 % (0.0-1.8) 06/06/18 04:41 Lymph # 3.0 K/mm3 (1.2-5.4) 06/06/18 04:41 [place] # 2.1 K/mm3 (0.0-0.8) H 06/06/18 04:41 Eos # 0.0 K/mm3 (0.0-0.4) 06/06/18 04:41 Baso # 0.0 K/mm3 (0.0-0.1) 06/06/18 04:41 Add Manual Diff Complete 06/05/18 08:44 Total Counted 100 06/05/18 08:44 Seg Neutrophils % 64.0 % (40.0-70.0) 06/06/18 04:41 Seg Neuts % (Manual) 82.0 % (40.0-70.0) H 06/05/18 08:44 Band Neutrophils % 0 % 06/05/18 08:44 Lymphocytes % (Manual) 13.0 % (13.4-35.0) L 06/05/18 08:44 Reactive Lymphs % (Man) 0 % 06/05/18 08:44 Monocytes % (Manual) 4.0 % (0.0-7.3) 06/05/18 08:44 Eosinophils % (Manual) 0 % (0.0-4.3) 06/05/18 08:44 Basophils % (Manual) 0 % (0.0-1.8) 06/05/18 08:44 Metamyelocytes % 0 % 06/05/18 08:44 Myelocytes % 1.0 % 06/05/18 08:44 Promyelocytes % 0 % 06/05/18 08:44 Blast Cells % 0 % 06/05/18 08:44 Nucleated RBC % Not Reportable 06/05/18 08:44 Seg Neutrophils # 9.1 K/mm3 (1.8-7.7) H 06/06/18 04:41 Seg Neutrophils # Man 17.2 K/mm3 (1.8-7.7) H 06/05/18 08:44 Band Neutrophils # 0.0 K/mm3 06/05/18 08:44 Lymphocytes # (Manual) 2.7 K/mm3 (1.2-5.4) 06/05/18 08:44 Abs React Lymphs (Man) 0.0 K/mm3 06/05/18 08:44 Monocytes # (Manual) 0.8 K/mm3 (0.0-0.8) 06/05/18 08:44 Eosinophils # (Manual) 0.0 K/mm3 (0.0-0.4) 06/05/18 08:44 Basophils # (Manual) 0.0 K/mm3 (0.0-0.1) 06/05/18 08:44 Metamyelocytes # 0.0 K/mm3 06/05/18 08:44 Myelocytes # 0.2 K/mm3 06/05/18 08:44 Promyelocytes # 0.0 K/mm3 06/05/18 08:44 Blast Cells # 0.0 K/mm3 06/05/18 08:44 WBC Morphology Not Reportable 06/05/18 08:44 Hypersegmented Neuts Not Reportable 06/05/18 08:44 Hyposegmented Neuts Not Reportable 06/05/18 08:44 Hypogranular Neuts Not Reportable 06/05/18 08:44 Smudge Cells Not Reportable 06/05/18 08:44 Toxic Granulation Not Reportable 06/05/18 08:44 Toxic Vacuolation Not Reportable 06/05/18 08:44 Dohle Bodies Not Reportable 06/05/18 08:44 Pelger-Huet Anomaly Not Reportable 06/05/18 08:44 Araceli Rods Not Reportable 06/05/18 08:44 Platelet Estimate Appears normal 06/05/18 08:44 Clumped Platelets Not Reportable 06/05/18 08:44 Plt Clumps, EDTA Not Reportable 06/05/18 08:44 Large Platelets Not Reportable 06/05/18 08:44 Giant Platelets Not Reportable 06/05/18 08:44 Platelet Satelliting Not Reportable 06/05/18 08:44 Plt Morphology Comment Not Reportable 06/05/18 08:44 RBC Morphology Not Reportable 06/05/18 08:44 Dimorphic RBCs Not Reportable 06/05/18 08:44 Polychromasia Not Reportable 06/05/18 08:44 Hypochromasia Not Reportable 06/05/18 08:44 Poikilocytosis Not Reportable 06/05/18 08:44 Anisocytosis Few 06/05/18 08:44 Microcytosis Not Reportable 06/05/18 08:44 Macrocytosis Not Reportable 06/05/18 08:44 Spherocytes Not Reportable 06/05/18 08:44 Pappenheimer Bodies Not Reportable 06/05/18 08:44 Sickle Cells Not Reportable 06/05/18 08:44 Target Cells Not Reportable 06/05/18 08:44 Tear Drop Cells Not Reportable 06/05/18 08:44 Ovalocytes Not Reportable 06/05/18 08:44 Helmet Cells Not Reportable 06/05/18 08:44 [place] Bodies Not Reportable 06/05/18 08:44 Olar Rings Not Reportable 06/05/18 08:44 [place] Cells Not Reportable 06/05/18 08:44 Bite Cells Not Reportable 06/05/18 08:44 Crenated Cell Not Reportable 06/05/18 08:44 Elliptocytes Few 06/05/18 08:44 Acanthocytes (Spur) Not Reportable 06/05/18 08:44 Rouleaux Not Reportable 06/05/18 08:44 Hemoglobin C Crystals Not Reportable 06/05/18 08:44 Schistocytes Not Reportable 06/05/18 08:44 Malaria parasites Not Reportable 06/05/18 08:44 Roberto Bodies Not Reportable 06/05/18 08:44 Hem Pathologist Commnt No 06/05/18 08:44 Sodium 140 mmol/L (137-145) D 06/07/18 09:03 Potassium 4.0 mmol/L (3.6-5.0) 06/07/18 09:03 Chloride 104.4 mmol/L (98-107) 06/07/18 09:03 Carbon Dioxide 25 mmol/L (22-30) 06/07/18 09:03 Anion Gap 15 mmol/L 06/07/18 09:03 BUN 6 mg/dL (7-17) L 06/07/18 09:03 Creatinine 0.2 mg/dL (0.7-1.2) L 06/07/18 09:03 Estimated GFR > 60 ml/min 06/07/18 09:03 BUN/Creatinine Ratio 30 % 06/07/18 09:03 Glucose 114 mg/dL (65-100) H 06/07/18 09:03 POC Glucose 139 (70-105) H 06/07/18 08:09 Hemoglobin A1c 5.6 % (4-6) 06/05/18 08:44 Lactic Acid 1.50 mmol/L (0.7-2.0) 06/05/18 15:40 Calcium 9.4 mg/dL (8.4-10.2) 06/07/18 09:03 Total Bilirubin 1.10 mg/dL (0.1-1.2) 06/05/18 08:44 AST 19 units/L (5-40) 06/05/18 08:44 ALT 19 units/L (7-56) 06/05/18 08:44 Alkaline Phosphatase 136 units/L (35-129) H 06/05/18 08:44 Total Creatine Kinase 26 units/L (30-135) L 06/05/18 15:40 NT-Pro-B Natriuret Pep 473.9 pg/mL (0-900) 06/05/18 08:44 Total Protein 7.3 g/dL (6.3-8.2) 06/05/18 08:44 Albumin 3.8 g/dL (3.9-5) L 06/05/18 08:44 Albumin/Globulin Ratio 1.1 % 06/05/18 08:44 Lipase 14 units/L (13-60) 06/05/18 08:44 Urine Color Yellow (Yellow) 06/05/18 08:14 Urine Turbidity Clear (Clear) 06/05/18 08:14 Urine pH 5.0 (5.0-7.0) 06/05/18 08:14 Ur Specific [place] 1.016 (1.003-1.030) 06/05/18 08:14 Urine Protein <15 mg/dl mg/dL (Negative) 06/05/18 08:14 Urine Glucose (UA) Neg mg/dL (Negative) 06/05/18 08:14 Urine Ketones Neg mg/dL (Negative) 06/05/18 08:14 Urine Blood Neg (Negative) 06/05/18 08:14 Urine Nitrite Neg (Negative) 06/05/18 08:14 Urine Bilirubin Neg (Negative) 06/05/18 08:14 Urine Urobilinogen 4.0 mg/dL (<2.0) 06/05/18 08:14 Ur Leukocyte Esterase Lg (Negative) 06/05/18 08:14 Urine WBC (Auto) 7.0 /HPF (0.0-6.0) H 06/05/18 08:14 Urine RBC (Auto) 8.0 /HPF (0.0-6.0) 06/05/18 08:14 U Epithel Cells (Auto) 1.0 /HPF (0-13.0) 06/05/18 08:14 Urine Bacteria (Auto) 1+ /HPF (Negative) 06/05/18 08:14 Urine Mucus Few /HPF 06/05/18 08:14 Blood Type A POSITIVE 06/05/18 15:46 Antibody Screen Negative 06/05/18 15:46
[2018-06-07] MEDS: TYLENOL PO PRN (15:26)
[2018-06-07] MEDS: TESSALON PERLES PO SCH ×2 (15:27→21:34)
[2018-06-08] MEDS: TESSALON PERLES PO SCH (05:15)
[2018-06-08 06:33] VITALS: BP 125/69
[2018-06-08] MEDS: HumaLOG SUB-Q SCH (08:00)
[2018-06-08] MEDS: MORPHINE IV PRN (08:11)
--- NOTE | 2018-06-08 09:15 | Discharge Summary ---
Providers - Providers Date of Admission: 06/05/18 17:52 Date of discharge: 06/08/18 Attending physician: CARRIE ALVES Primary care physician: CAMRON ZAVALA MD Hospitalization Condition: Fair Disposition: DC-01 TO HOME OR SELFCARE Core Measure Documentation - Palliative Care Palliative Care/ Comfort Measures: Not Applicable - Core Measures Any of the following diagnoses?: none Exam - Constitutional Vitals: Temp Pulse Resp BP Pulse Ox 98.5 F 79 18 125/69 95 06/08/18 05:52 06/08/18 05:52 06/08/18 08:11 06/08/18 05:52 06/08/18 05:52 Plan Activity: advance as tolerated Diet: low fat, low cholesterol, low salt Additional Instructions: 1.Follow up with PCP in 1 week. Follow up with: PRIMARY CARE, [Primary Care Provider] - 3-5 Days Prescriptions: Benzonatate [Tessalon Perles] 100 mg PO Q8HR PRN #20 capsule PRN Reason: Cough levoFLOXacin [Levaquin] 750 mg PO QDAY #5 tablet
[2018-06-08] MEDS ORDERED: ZITHROMAX PO SCH (10:00)
[2018-06-08] MEDS: ROCEPHIN/NS 2 GM/100 ML 2 GM/100 ML BAG IV SCH (10:22)
[2018-06-08] MEDS: SODIUM CHLORIDE FLUSH SYRINGE 10 ML IV SCH (10:23)
[2018-06-08] MEDS: BABY ASPIRIN PO SCH (10:23)
[2018-06-08] MEDS: NORVASC PO SCH (10:23)
== END 2018-06-08 11:35 | disposition home or self-care (01) | DRG 871 ==
LOC: ED 06:31 → 3A 17:52
PROVIDERS: ADMIT Internal Medicine; ATTEND Internal Medicine
DX: A41.9 Sepsis, unspecified organism (principal); J18.9 Pneumonia, unspecified organism; I10 Essential (primary) hypertension; E11.9 Type 2 diabetes mellitus without complications; M16.12 Unilateral primary osteoarthritis, left hip; F17.200 Nicotine dependence, unspecified, uncomplicated; Z79.82 Long term (current) use of aspirin; Z86.73 Personal history of transient ischemic attack (TIA), and cerebral infarction without residual deficits; Z90.49 Acquired absence of other specified parts of digestive tract; Z90.710 Acquired absence of both cervix and uterus; Z79.899 Other long term (current) drug therapy; Z82.49 Family history of ischemic heart disease and other diseases of the circulatory system; Z88.0 Allergy status to penicillin; Z88.5 Allergy status to narcotic agent
CPT/HCPCS: 36415; 71250; 74176; 80048; 80053; 81001; 82140; 82550; 82962; 83036; 83690; 83880; 85007; 85025; 85027; 86850; 86900; 86901; 87040; 96361; 96365; 96366; 96375; J0456; J0696; J1956; J2270; J2405; J7030; J7050

== ENCOUNTER 2018-11-12 12:40 | Emergency (ER) | payer OTHER ==
[2018-11-12 12:49] VITALS: BP 154/109
[2018-11-12] MEDS ORDERED: MORPHINE IM ONE (13:30)
[2018-11-12] MEDS ORDERED: ZOFRAN IM ONE (13:30)
--- NOTE | 2018-11-12 13:34 | Emergency Department Report ---
ED Headache HPI - General Chief Complaint: Headache Stated Complaint: HEADACHE/BLURRED VISION Time Seen by Provider: 11/12/18 13:25 Source: patient - History of Present Illness Initial Comments: Patient is a 58 years old female with history of hypertension. Patient presented to the emergency room complaining of headache since last night associated with blurry vision to the right eye. Patient denied any weakness, numbness or tingling sensation. Timing/Duration: 24 hours Quality: moderate Head Injury Location: temporal Recent Head Trauma: no recent headache/trauma, occasional headaches Modifying Factors: worse with: cold therapy, exposure to light, immobilization, medication, movement, rest, other Associated Symptoms: vision changes. denies: denies symptoms, confusion, fatigue, facial pain, fever/chills, flushing, loss of consciousness, nause a/vomiting, nasal congestion, nasal drainage, numbness in legs/feet, rash, seizures, sinus infection, stiff neck, weakness, other Allergies/Adverse Reactions: Allergies codeine Allergy (Verified 11/15/17 10:39) Vomiting Penicillins Allergy (Verified 11/15/17 10:39) Hives Home Medications: Ambulatory Orders Aspirin [Aspirin BABY CHEW TAB] 81 mg PO QDAY 05/18/17 amLODIPine [Norvasc] 10 mg PO DAILY 05/18/17 Benzonatate [Tessalon Perles] 100 mg PO Q8HR PRN #20 capsule 06/08/18 levoFLOXacin [Levaquin] 750 mg PO QDAY #5 tablet 06/08/18 ALBUTEROL Inhaler (OR & NICU) [ProAir HFA Inhaler] 2 puff IH Q4HR PRN #1 inhalation 08/29/18 Azithromycin [Zithromax Z-ROBBIN] 250 mg PO DAILY #6 tablet 08/29/18 Hydrocodone/Chlorphen Polis(Nf [Tussionex (Nf)] 473 ml PO Q12H PRN #180 susp 08/29/18 Ibuprofen [Motrin] 800 mg PO Q8HR PRN #30 tablet 08/29/18 ED Review of Systems ROS: Stated complaint: HEADACHE/BLURRED VISION Other details as noted in HPI Comment: All other systems reviewed and negative Constitutional: denies: chills, fever Respiratory: denies: cough, orthopnea, shortness of breath, SOB with exertion, SOB at rest, wheezing Cardiovascular: denies: chest pain, palpitations Gastrointestinal: denies: abdominal pain, nausea, vomiting, diarrhea, hematemesis Neurological: headache. 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 HYSTERECTOMY. surgery to remove gallstones - Social History Smoking Status: Current Every Day Smoker Substance Use Type: Alcohol, Prescribed - Medications Home Medications: Home Medications Medication Instructions Recorded Confirmed Last Taken Type Aspirin [Aspirin BABY CHEW TAB] 81 mg PO QDAY 05/18/17 06/05/18 05/17/17 History amLODIPine [Norvasc] 10 mg PO DAILY 05/18/17 06/05/18 05/17/17 History Benzonatate [Tessalon Perles] 100 mg PO Q8HR PRN #20 capsule 06/08/18 Unknown Rx levoFLOXacin [Levaquin] 750 mg PO QDAY #5 tablet 06/08/18 Unknown Rx ALBUTEROL Inhaler (OR & NICU) 2 puff IH Q4HR PRN #1 inhalation 08/29/18 Unknown Rx [ProAir HFA Inhaler] Azithromycin [Zithromax Z-ROBBIN] 250 mg PO DAILY #6 tablet 08/29/18 Unknown Rx Hydrocodone/Chlorphen Polis(Nf 473 ml PO Q12H PRN #180 susp 08/29/18 Unknown Rx [Tussionex (Nf)] Ibuprofen [Motrin] 800 mg PO Q8HR PRN #30 tablet 08/29/18 Unknown Rx ED Physical Exam - General Limitations: No Limitations General appearance: alert, in no apparent distress - Head Head exam: Present: atraumatic, normocephalic, normal inspection - Eye Eye exam: Present: normal appearance, PERRL - ENT ENT exam: Present: normal exam, normal orophraynx, mucous membranes moist - Neck Neck exam: Present: normal inspection, full ROM. Absent: tenderness, meningismus, lymphadenopathy, thyromegaly - Respiratory Respiratory exam: Present: normal lung sounds bilaterally. Absent: respiratory distress, wheezes, rales, rhonchi, stridor, chest wall tenderness, accessory muscle use, decreased breath sounds, prolonged expiratory - Cardiovascular Cardiovascular Exam: Present: regular rate, normal rhythm, normal heart sounds - GI/Abdominal GI/Abdominal exam: Present: soft, normal bowel sounds. Absent: distended, tenderness, guarding, rebound, rigid, organomegaly, mass, bruit, pulsatile mass, hernia - Extremities Exam Extremities exam: Present: normal inspection, full ROM, normal capillary refill. Absent: pedal edema, calf tenderness - Back Exam Back exam: Present: normal inspection, full ROM. Absent: tenderness, CVA tenderness (R), CVA tenderness (L), muscle spasm, paraspinal tenderness, vertebral tenderness - Neurological Exam Neurological exam: Present: alert, oriented X3, CN II-XII intact, normal gait, reflexes normal - Psychiatric Psychiatric exam: Present: normal mood - Skin Skin exam: Present: warm, intact, normal color ED Course Vital Signs 11/12/18 12:47 Temperature 98.2 F Pulse Rate 99 H Respiratory 20 Rate Blood Pressure 154/109 O2 Sat by Pulse 100 Oximetry ED Medical Decision Making - Radiology Data Radiology results: report reviewed Referring Physician: KATHLEEN WALKER Patient Name: OCTAVIANO DELEON Date of : 1960 Sex: Female Report Date: 2018-11-12 Report Status: [place] [address] Cat Scan Report Signed Patient: OCTAVIANO DELEON MR#: [id number] : 1960 Acct:[id number] Age/Sex: 58 / F ADM Date: 11/12/18 Loc: ED Attending Dr: Ordering Physician: KATHLEEN WALKER Date of Service: 11/12/18 Procedure(s): CT head/brain wo con Accession Number(s): [id number] cc: KATHLEEN WALKER PROCEDURE: CT HEAD/BRAIN WO CON TECHNIQUE: Computerized tomography of the head was performed without contrast material. CT DOSE LENGTH PRODUCT: 920.48 mGycm HISTORY: HEADACHE AND DIZZINESS COMPARISONS: None . FINDINGS: Unenhanced CT of the brain was performed and demonstrates no acute intracranial hemorrhage, extra-axial fluid collection, midline shift or mass effect. The ventricles and basal cisterns are not effaced. There is an old right basal ganglia lacunar infarct. The mastoid air cells and middle ears appear clear. There is no evidence of acute sinusitis. IMPRESSION: No acute intracranial hemorrhage This document is electronically signed by Michael Crews MD., November 12 2018 03:01:08 PM ET Transcribed By: ROMEL Dictated By: MICHAEL CREWS MD Electronically Authenticated By: MICHAEL CREWS MD Signed Date/Time: 11/12/18 1503 DD/ 141 TD/TT: 11/12/18 141 - Medical Decision Making Patient is a 58 years old female with history of hypertension. Patient presented to the emergency room complaining of headache since last night associated with blurry vision to the right eye. Patient denied any weakness, numbness or tingling sensation. Patient's symptoms completely resolved after morphine. CT brain is negative for acute finding. I advised the patient to follow up with her primary care physician in the next 2-3 days and to return to the ER if her symptoms are not improved. Critical care attestation.: If time is entered above; I have spent that time in minutes in the direct care of this critically ill patient, excluding procedure time. ED Disposition Clinical Impression: Headache Disposition: DC-01 TO HOME OR SELFCARE Is pt being admited?: No Condition: Stable Instructions: Acute Headache (ED) Referrals: [facility] [Other] - 3-5 Days Forms: Work/School Release Form(ED)
--- NOTE | 2018-11-12 15:03 | Cat Scan Report ---
PROCEDURE: CT HEAD/BRAIN WO CON TECHNIQUE: Computerized tomography of the head was performed without contrast material. CT DOSE LENGTH PRODUCT: 920.48 mGycm HISTORY: HEADACHE AND DIZZINESS COMPARISONS: None . FINDINGS: Unenhanced CT of the brain was performed and demonstrates no acute intracranial hemorrhage, extra-axial fluid collection, midline shift or mass effect. The ventricles and basal cisterns are no t effaced. There is an old right basal ganglia lacunar infarct. The mastoid air cells and middle ears appear clear. There is no evidence of acute sinusitis. IMPRESSION: No acute intracranial hemorrhage This document is electronically signed by Michael Hale MD., November 12 2018 03:01:08 PM ET
== END 2018-11-12 15:35 | disposition home or self-care (01) ==
LOC: ED 12:40
DX: R51 Headache (principal); I10 Essential (primary) hypertension; F17.200 Nicotine dependence, unspecified, uncomplicated; E11.9 Type 2 diabetes mellitus without complications; M19.90 Unspecified osteoarthritis, unspecified site; E78.00 Pure hypercholesterolemia, unspecified; Z88.0 Allergy status to penicillin; Z88.5 Allergy status to narcotic agent; Z79.82 Long term (current) use of aspirin; Z90.49 Acquired absence of other specified parts of digestive tract; Z90.710 Acquired absence of both cervix and uterus
CPT/HCPCS: 70450; 96372; 99283; J2270; J2405

== ENCOUNTER 2019-02-13 07:59 | Emergency (ER) | payer SELFPAY ==
[2019-02-13 08:06] VITALS: BP 166/82
--- NOTE | 2019-02-13 08:59 | Emergency Department Report ---
ED Back Pain/Injury HPI - General Chief Complaint: Back Pain/Injury Stated Complaint: BACK PAIN Time Seen by Provider: 02/13/19 08:31 Source: patient Limitations: No Limitations - History of Present Illness Initial Comments: 58-year-old female with history of chronic low back pain presents to ED with acute onset of lower back pain 3 days ago. Patient states she had been packing, and lifted a box. She states the pain is located in the lower back, nonradiating. Denies any numbness or weakness in the legs. Patient denies fever, urinary symptoms, abdominal pain, unexplained weight loss. Patient states she did not take anything for pain prior to this ER visit. Complaint: back pain -: days(s) (3) Similar Symptoms Previously: Yes Place: home Radiation: none Severity: moderate Quality: sharp, aching Consistency: intermittent Improves With: immobilization Worsens With: movement, walking Context: while lifting Associated Symptoms: denies: weakness, numbness, difficulty walking, difficulty urinating, incontinence, fever/chills, abdominal pain, nausea/vomiting Treatments Prior to Arrival: heat therapy - Related Data Home Medications Medication Instructions Recorded Confirmed Last Taken Aspirin [Aspirin BABY CHEW TAB] 81 mg PO QDAY 05/18/17 06/05/18 05/17/17 amLODIPine [Norvasc] 10 mg PO DAILY 05/18/17 06/05/18 05/17/17 Previous Rx's Medication Instructions Recorded Last Taken Type Benzonatate [Tessalon Perles] 100 mg PO Q8HR PRN #20 capsule 06/08/18 Unknown Rx levoFLOXacin [Levaquin] 750 mg PO QDAY #5 tablet 06/08/18 Unknown Rx ALBUTEROL Inhaler (OR & NICU) 2 puff IH Q4HR PRN #1 inhalation 08/29/18 Unknown Rx [ProAir HFA Inhaler] Azithromycin [Zithromax Z-ROBBIN] 250 mg PO DAILY #6 tablet 08/29/18 Unknown Rx Hydrocodone/Chlorphen Polis(Nf 473 ml PO Q12H PRN #180 susp 08/29/18 Unknown Rx [Tussionex (Nf)] Ibuprofen [Motrin] 800 mg PO Q8HR PRN #30 tablet 08/29/18 Unknown Rx Ketorolac [Toradol] 10 mg PO Q6H PRN #20 tablet 11/12/18 Unknown Rx Ondansetron [Zofran Odt] 4 mg PO Q8HR PRN #14 tab.rapdis 11/12/18 Unknown Rx Naproxen [Naprosyn] 500 mg PO BID #20 tablet 02/13/19 Unknown Rx methOCARBAMOL [Robaxin TAB] 500 mg PO Q8HR PRN #20 tablet 02/13/19 Unknown Rx Allergies Allergy/AdvReac Type Severity Reaction Status Date / Time codeine Allergy Vomiting Verified 02/13/19 08:01 Penicillins Allergy Hives Verified 02/13/19 08:01 ED Review of Systems ROS: Stated complaint: BACK PAIN Other details as noted in HPI Comment: All other systems reviewed and negative Constitutional: denies: chills, fever Gastrointestinal: denies: abdominal pain, nausea, vomiting Genitourinary: other (denies incontinence or difficulty urinating) Musculoskeletal: back pain Neurological: denies: weakness, numbness, paresthesias ED Past Medical Hx - Past Medical History Hx Hypertension: Yes Hx CVA: Yes ("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 HYSTERECTOMY. surgery to remove gallstones - Social History Smoking Status: Current Every Day Smoker Substance Use Type: Alcohol, Prescribed - Medications Home Medications: Home Medications Medication Instructions Recorded Confirmed Last Taken Type Aspirin [Aspirin BABY CHEW TAB] 81 mg PO QDAY 05/18/17 06/05/18 05/17/17 History amLODIPine [Norvasc] 10 mg PO DAILY 05/18/17 06/05/18 05/17/17 History Benzonatate [Tessalon Perles] 100 mg PO Q8HR PRN #20 capsule 06/08/18 Unknown Rx levoFLOXacin [Levaquin] 750 mg PO QDAY #5 tablet 06/08/18 Unknown Rx ALBUTEROL Inhaler (OR & NICU) 2 puff IH Q4HR PRN #1 inhalation 08/29/18 Unknown Rx [ProAir HFA Inhaler] Azithromycin [Zithromax Z-ROBBIN] 250 mg PO DAILY #6 tablet 08/29/18 Unknown Rx Hydrocodone/Chlorphen Polis(Nf 473 ml PO Q12H PRN #180 susp 08/29/18 Unknown Rx [Tussionex (Nf)] Ibuprofen [Motrin] 800 mg PO Q8HR PRN #30 tablet 08/29/18 Unknown Rx Ketorolac [Toradol] 10 mg PO Q6H PRN #20 tablet 11/12/18 Unknown Rx Ondansetron [Zofran Odt] 4 mg PO Q8HR PRN #14 tab.rapdis 11/12/18 Unknown Rx Naproxen [Naprosyn] 500 mg PO BID #20 tablet 02/13/19 Unknown Rx methOCARBAMOL [Robaxin TAB] 500 mg PO Q8HR PRN #20 tablet 02/13/19 Unknown Rx ED Physical Exam - General Limitations: No Limitations General appearance: alert, in no apparent distress - Head Head exam: Present: atraumatic, normocephalic - Eye Eye exam: Present: normal appearance - ENT ENT exam: Present: mucous membranes moist - Neck Neck exam: Present: normal inspection - Respiratory Respiratory exam: Present: normal lung sounds bilaterally. Absent: respiratory distress - Cardiovascular Cardiovascular Exam: Present: regular rate, normal rhythm - GI/Abdominal GI/Abdominal exam: Present: soft. Absent: distended, tenderness - Extremities Exam Extremities exam: Present: normal inspection - Back Exam Back exam: Present: paraspinal tenderness (bilateral lower lumbar), vertebral tenderness (lower lumbar at approx L4, L5) - Neurological Exam Neurological exam: Present: alert, oriented X3, normal gait. Absent: motor sensory deficit - Psychiatric Psychiatric exam: Present: normal affect, normal mood - Skin Skin exam: Present: warm, dry, intact, normal color ED Course Vital Signs 02/13/19 02/13/19 02/13/19 08:05 08:06 09:07 Temperature 98 F 98 F Pulse Rate 84 Respiratory 22 Rate Blood Pressure 166/82 O2 Sat by Pulse 97 Oximetry ED Medical Decision Making - Medical Decision Making - acute on chronic exacerbation of back pain due to strenuous activity and heavy lifting - afebrile - no signs of cauda equina - pt is ambulatory - no neuro deficits - toradol and decadron given in ED - rc given for naprosyn and robaxin - outpt f/u advised - return precautions given - Differential Diagnosis lumbar strain Critical care attestation.: If time is entered above; I have spent that time in minutes in the direct care of this critically ill patient, excluding procedure time. ED Disposition Clinical Impression: Acute low back pain Disposition: TO HOME OR SELFCARE Is pt being admited?: No Condition: Stable Instructions: Acute Low Back Pain (ED) Prescriptions: Naproxen [Naprosyn] 500 mg PO BID #20 tablet methOCARBAMOL [Robaxin TAB] 500 mg PO Q8HR PRN #20 tablet PRN Reason: Muscle Spasm [facility] PERF[facility] [Primary Care Provider] - 3-5 Days PRIMARY CAREMD [Referring] - 3-5 Days MICKEY KIRKPATRICK MD [Staff Physician] - 3-5 Days Forms: Work/School Release Form(ED) Time of Disposition: 09:01
[2019-02-13] MEDS ORDERED: DECADRON IM ONE (09:00)
[2019-02-13] MEDS ORDERED: TORADOL IM ONE (09:00)
== END 2019-02-13 09:20 | disposition home or self-care (01) ==
LOC: ED 07:59
DX: M54.5 Low back pain (principal); I10 Essential (primary) hypertension; M19.90 Unspecified osteoarthritis, unspecified site; F17.200 Nicotine dependence, unspecified, uncomplicated; Z86.73 Personal history of transient ischemic attack (TIA), and cerebral infarction without residual deficits; Z90.89 Acquired absence of other organs; Z90.49 Acquired absence of other specified parts of digestive tract; Z90.710 Acquired absence of both cervix and uterus; Z88.5 Allergy status to narcotic agent; Z88.0 Allergy status to penicillin
CPT/HCPCS: 96372; 99282; J1885

== ENCOUNTER 2019-04-28 09:48 | Emergency (ER) | payer OTHER ==
[2019-04-28 10:36] VITALS: BP 141/80
--- NOTE | 2019-04-28 12:43 | Emergency Department Report ---
ED Headache HPI - General Chief Complaint: Headache Stated Complaint: HEADACHE Time Seen by Provider: 04/28/19 11:33 - History of Present Illness Initial Comments: 58-year-old female to emergency Department complaining of a dull throbbing headache to the frontal parietal region. States she gets headaches but over the often treats occasionally with [id number], medications, but wanted to come to the ER for medications. Reports no nausea, vomiting, fever, chills, sweats, blurred vision, double vision, tinnitus, loss almost. Light makes the headache worse. Denies any hypertension. The patient states she wants a prescription home with. She reports no unilateral weakness or ataxias. Associated Symptoms: denies: confusion, fatigue, facial pain, fever/chills, loss of consciousness, nausea/vomiting, nasal congestion, nasal drainage, numbness in legs/feet, seizures, sinus infection, stiff neck, vision changes, weakness Allergies/Adverse Reactions: Allergies codeine Allergy (Verified 04/28/19 09:55) Vomiting Penicillins Allergy (Verified 04/28/19 09:55) Hives Home Medications: Ambulatory Orders Aspirin [Aspirin BABY CHEW TAB] 81 mg PO QDAY 05/18/17 amLODIPine [Norvasc] 10 mg PO DAILY 05/18/17 Benzonatate [Tessalon Perles] 100 mg PO Q8HR PRN #20 capsule 06/08/18 levoFLOXacin [Levaquin] 750 mg PO QDAY #5 tablet 06/08/18 ALBUTEROL Inhaler (OR & NICU) [ProAir HFA Inhaler] 2 puff IH Q4HR PRN #1 inhalation 08/29/18 Azithromycin [Zithromax Z-ROBBIN] 250 mg PO DAILY #6 tablet 08/29/18 Hydrocodone/Chlorphen Polis(Nf [Tussionex (Nf)] 473 ml PO Q12H PRN #180 susp 08/29/18 Ibuprofen [Motrin] 800 mg PO Q8HR PRN #30 tablet 08/29/18 Ketorolac [Toradol] 10 mg PO Q6H PRN #20 tablet 11/12/18 Ondansetron [Zofran Odt] 4 mg PO Q8HR PRN #14 tab.rapdis 11/12/18 Naproxen [Naprosyn] 500 mg PO BID #20 tablet 02/13/19 methOCARBAMOL [Robaxin TAB] 500 mg PO Q8HR PRN #20 tablet 02/13/19 Butalb/Acetaminophen/Caffeine [Fioricet 50-300-40 mg CAP] 1 cap PO Q6HR PRN #10 cap 04/28/19 ED Review of Systems ROS: Stated complaint: HEADACHE Other details as noted in HPI Comment: All other systems reviewed and negative ED Past Medical Hx - Past Medical History Hx Hypertension: Yes Hx CVA: Yes ("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 HYSTERECTOMY. surgery to remove gallstones - Social History Smoking Status: Current Every Day Smoker Substance Use Type: None - Medications Home Medications: Home Medications Medication Instructions Recorded Confirmed Last Taken Type Aspirin [Aspirin BABY CHEW TAB] 81 mg PO QDAY 05/18/17 06/05/18 05/17/17 History amLODIPine [Norvasc] 10 mg PO DAILY 05/18/17 06/05/18 05/17/17 History Benzonatate [Tessalon Perles] 100 mg PO Q8HR PRN #20 capsule 06/08/18 Unknown Rx levoFLOXacin [Levaquin] 750 mg PO QDAY #5 tablet 06/08/18 Unknown Rx ALBUTEROL Inhaler (OR & NICU) 2 puff IH Q4HR PRN #1 inhalation 08/29/18 Unknown Rx [ProAir HFA Inhaler] Azithromycin [Zithromax Z-ROBBIN] 250 mg PO DAILY #6 tablet 08/29/18 Unknown Rx Hydrocodone/Chlorphen Polis(Nf 473 ml PO Q12H PRN #180 susp 08/29/18 Unknown Rx [Tussionex (Nf)] Ibuprofen [Motrin] 800 mg PO Q8HR PRN #30 tablet 08/29/18 Unknown Rx Ketorolac [Toradol] 10 mg PO Q6H PRN #20 tablet 11/12/18 Unknown Rx Ondansetron [Zofran Odt] 4 mg PO Q8HR PRN #14 tab.rapdis 11/12/18 Unknown Rx Naproxen [Naprosyn] 500 mg PO BID #20 tablet 02/13/19 Unknown Rx methOCARBAMOL [Robaxin TAB] 500 mg PO Q8HR PRN #20 tablet 02/13/19 Unknown Rx Butalb/Acetaminophen/Caffeine 1 cap PO Q6HR PRN #10 cap 04/28/19 Unknown Rx [Fioricet 50-300-40 mg CAP] ED Physical Exam - General Limitations: No Limitations General appearance: alert, in no apparent distress - Head Head exam: Present: atraumatic, normocephalic - Eye Eye exam: Present: normal appearance, PERRL, EOMI - ENT ENT exam: Present: normal exam, normal orophraynx, mucous membranes moist - Neck Neck exam: Present: normal inspection, full ROM. Absent: tenderness, meningismus, thyromegaly - Respiratory Respiratory exam: Present: normal lung sounds bilaterally. Absent: respiratory distress, wheezes, rales, chest wall tenderness, accessory muscle use - Cardiovascular Cardiovascular Exam: Present: regular rate, normal rhythm. Absent: systolic murmur, diastolic murmur, rubs, gallop - GI/Abdominal GI/Abdominal exam: Present: soft, normal bowel sounds. Absent: tenderness, guarding, hyperactive bowel sounds, hypoactive bowel sounds, organomegaly - Extremities Exam Extremities exam: Present: normal inspection - Back Exam Back exam: Present: normal inspection. Absent: CVA tenderness (R), CVA tenderness (L) - Neurological Exam Neurological exam: Present: alert, oriented X3, CN II-XII intact - Psychiatric Psychiatric exam: Present: normal affect, normal mood. Absent: anxious, flat affect, homicidal ideation - Skin Skin exam: Present: warm, dry, intact, normal color. Absent: rash, cyanosis, diaphoretic, erythema, urticaria, petechiae, pallor, abrasion ED Course Vital Signs 04/28/19 10:25 Temperature 97.8 F Pulse Rate 67 Respiratory 16 Rate Blood Pressure 141/80 O2 Sat by Pulse 98 Oximetry ED Medical Decision Making - Medical Decision Making 58-year-old female with cephalgia dull throbbing pain. Neurologically intact. Requesting only prescription does not wish to be treated in the emergency department and that was having any further testing only wants medication to resolve her current headache. She is alert and oriented 3 and of sound judgment, has a history of a stroke, but reports this does not feel like any CVA complications. She has experienced in the past. She reports this is is her usual headache. She just has no medications. 2. Resolved Critical care attestation.: If time is entered above; I have spent that time in minutes in the direct care of this critically ill patient, excluding procedure time. ED Disposition Clinical Impression: Cephalgia Disposition: DC-01 TO HOME OR SELFCARE Is pt being admited?: No Does the pt Need Aspirin: No Condition: Stable Instructions: Butalbital/Acetaminophen/Caffeine (By mouth) Prescriptions: Butalb/Acetaminophen/Caffeine [Fioricet 50-300-40 mg CAP] 1 cap PO Q6HR PRN #10 cap PRN Reason: headache Referrals: DESEAN MORRIS MD [Primary Care Provider] - 3-5 Days
== END 2019-04-28 12:13 | disposition home or self-care (01) ==
LOC: ED 09:48
DX: R51 Headache (principal); I10 Essential (primary) hypertension; F17.200 Nicotine dependence, unspecified, uncomplicated; E11.9 Type 2 diabetes mellitus without complications; Z90.49 Acquired absence of other specified parts of digestive tract; Z98.890 Other specified postprocedural states; Z88.5 Allergy status to narcotic agent; Z88.0 Allergy status to penicillin

== ENCOUNTER 2019-07-14 11:11 | Emergency (ER) | payer SELFPAY ==
--- NOTE | 2019-07-14 13:51 | Emergency Department Report ---
ED Chest Pain HPI - General Chief Complaint: Fall Stated Complaint: CHEST PAIN Time Seen by Provider: 07/14/19 13:42 Source: patient Mode of arrival: Ambulatory Limitations: No Limitations - History of Present Illness Initial Comments: 58-year-old female, history of hypertension, presents to ED with right-sided chest pain 4 days. Patient states pain is worse with cough, sneezing. Patient reports some shortness of breath. Patient denies fever, leg pain or swelling. Patient reports she suffered a fall one month ago, injuring her lower back and right arm, for which she has been going to physical therapy. However, patient states she did not injure her chest during this fall. Patient states 4 days ago she went for an MRI of her spine, states when she got up from the table, she was having this chest pain. MD Complaint: chest pain -: days(s) (4) Onset: during rest Pain Location: right chest Pain Radiation: none Severity: moderate Quality: sharp Consistency: constant Improves With: nothing Worsens With: inspiration, palpation, other (cough, sneezing) re: dyspnea. denies: nausea, vomting, diaphoresis Other Symptoms: denies: fever, leg swelling, palpitations - Related Data Home Medications Medication Instructions Recorded Confirmed Last Taken Aspirin [Aspirin BABY CHEW TAB] 81 mg PO QDAY 05/18/17 06/05/18 05/17/17 amLODIPine 10 mg PO DAILY 05/18/17 06/05/18 05/17/17 Previous Rx's Medication Instructions Recorded Last Taken Type Cyclobenzaprine [Flexeril] 10 mg PO TID PRN #10 tablet 06/07/19 Unknown Rx Ibuprofen [Motrin] 800 mg PO Q8HR PRN #30 tablet 06/07/19 Unknown Rx predniSONE [Deltasone] 20 mg PO DAILY #5 tablet 06/07/19 Unknown Rx Naproxen [Naprosyn] 500 mg PO BID #20 tablet 07/14/19 Unknown Rx Allergies Allergy/AdvReac Type Severity Reaction Status Date / Time codeine Allergy Vomiting Verified 04/28/19 09:55 Penicillins Allergy Hives Verified 04/28/19 09:55 ketorolac [From Toradol] AdvReac Anaphylaxis Verified 07/14/19 16:45 Heart Score - HEART Score History: Slightly suspicious EKG: Normal Age: 45-65 Risk factors: 1-2 risk factors Troponin: < normal limit HEART Score: 2 ED Review of Systems ROS: Stated complaint: CHEST PAIN Other details as noted in HPI Comment: All other systems reviewed and negative Constitutional: denies: chills, fever Respiratory: cough, shortness of breath Cardiovascular: chest pain. denies: palpitations Gastrointestinal: denies: nausea, vomiting Musculoskeletal: other (denies leg pain or swelling) ED Past Medical Hx - Past Medical History Previous Medical History?: Yes Hx Hypertension: Yes 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 HYSTERECTOMY. surgery to remove gallstones - Social History Smoking Status: Never Smoker Substance Use Type: None - Medications Home Medications: Home Medications Medication Instructions Recorded Confirmed Last Taken Type Aspirin [Aspirin BABY CHEW TAB] 81 mg PO QDAY 05/18/17 06/05/18 05/17/17 History amLODIPine 10 mg PO DAILY 05/18/17 06/05/18 05/17/17 History Cyclobenzaprine [Flexeril] 10 mg PO TID PRN #10 tablet 06/07/19 Unknown Rx Ibuprofen [Motrin] 800 mg PO Q8HR PRN #30 tablet 06/07/19 Unknown Rx predniSONE [Deltasone] 20 mg PO DAILY #5 tablet 06/07/19 Unknown Rx Naproxen [Naprosyn] 500 mg PO BID #20 tablet 07/14/19 Unknown Rx ED Physical Exam - General Limitations: No Limitations General appearance: alert, in no apparent distress - Head Head exam: Present: atraumatic, normocephalic - Eye Eye exam: Present: normal appearance, PERRL, EOMI - ENT ENT exam: Present: mucous membranes moist - Neck Neck exam: Present: normal inspection - Respiratory Respiratory exam: Present: normal lung sounds bilaterally. Absent: respiratory distress - Cardiovascular Cardiovascular Exam: Present: regular rate, normal rhythm - GI/Abdominal GI/Abdominal exam: Present: soft. Absent: distended, tenderness - Extremities Exam Extremities exam: Present: normal inspection. Absent: pedal edema, calf tenderness - Neurological Exam Neurological exam: Present: alert, oriented X3, CN II-XII intact. Absent: motor sensory deficit - Psychiatric Psychiatric exam: Present: normal affect, normal mood - Skin Skin exam: Present: warm, dry, intact, normal color ED Course Vital Signs 07/14/19 07/14/19 11:21 16:26 Temperature 97.7 F Pulse Rate 101 H 86 Respiratory 16 23 Rate Blood Pressure 148/76 173/91 [Left] O2 Sat by Pulse 99 99 Oximetry ED Medical Decision Making - Lab Data Result diagrams: 07/14/19 14:05 07/14/19 14:05 - EKG Data -: EKG Interpreted by De EKG shows normal: sinus rhythm, axis, intervals, QRS complexes, ST-T waves Rate: normal - EKG Data Interpretation: no acute changes - Radiology Data Radiology results: report reviewed, image reviewed - Medical Decision Making 58-year-old female with right-sided chest pain 3 days. Patient appears nontoxic. EKG normal. Chest x-ray normal. Labs are unremarkable except for elevated d-dimer. CTA Chest negative for any acute abnormalities. Symptoms possibly due to pleurisy. Outpatient follow-up advised. Return precautions given. - Differential Diagnosis PE, pleurisy, pneumonia, pleural effusion Critical care attestation.: If time is entered above; I have spent that time in minutes in the direct care of this critically ill patient, excluding procedure time. ED Disposition Clinical Impression: Pleurisy Disposition: DC-01 TO HOME OR SELFCARE Is pt being admited?: No Condition: Stable Instructions: Pleurisy (ED) Prescriptions: Naproxen [Naprosyn] 500 mg PO BID #20 tablet Referrals: PRIMARY MD SALLY [Primary Care Provider] - 3-[address] [facility] [Provider Group] - 3-5 Days Time of Disposition: 16:45
[2019-07-14 14:24] LABS: Basophils # (Auto) 0.1 K/mm3 (0.0-0.1); Eosinophils # (Auto) 0.1 K/mm3 (0.0-0.4); Eosinophils % (Auto) 1.1 % (0.0-4.3); Hematocrit 36.9 % (30.3-42.9); Hemoglobin 12.3 gm/dl (10.1-14.3); Lymphocytes # (Auto) 2.4 K/mm3 (1.2-5.4); Lymphocytes % (Auto) 24.5 % (13.4-35.0); Mean Corpuscular HGB Conc 33 % (30-34); Mean Corpuscular Volume 83 fl (79-97); Monocytes # (Auto) 0.9 K/mm3 (0.0-0.8); Monocytes % (Auto) 9.4 % (0.0-7.3); Platelet Count 240 K/mm3 (140-440); Red Blood Count 4.47 M/mm3 (3.65-5.03); Red Cell Distribution Width 13.6 % (13.2-15.2)
[2019-07-14 14:37] LABS: INR 1.09 (0.87-1.13)
[2019-07-14 14:38] LABS: Partial Thromboplastin Time 30.7 Sec. (24.2-36.6)
[2019-07-14 14:45] LABS: BUN/Creatinine Ratio 30; Blood Urea Nitrogen 9 mg/dL (7-17); Hemolysis Index 4
--- NOTE | 2019-07-14 15:12 | XRay Report ---
CHEST 2 VIEWS, 07/14/2019 2:56 PM INDICATION: Shortness of breath COMPARISON: Chest radiograph, 09/19/2017 FINDINGS: Support devices: None Heart: The heart is moderately enlarged. Lungs/pleura: There is mild prominence of the pulmonary interstitium suggesting venous hypertension. No focal airspace consolidation or pleural effusion is seen. Additional findings: None IMPRESSION: 1. Moderate cardiomegaly with evidence of mild venous hypertension. Signer Name: Sheila Ibarra MD Signed: 07/14/2019 3:07 PM Workstation Name: [id number]
[2019-07-14 16:26] VITALS: BP 173/91
[2019-07-14] MEDS ORDERED: ACETAMINOPHEN 325 MG TAB PO ONE (16:26)
--- NOTE | 2019-07-14 16:35 | Cat Scan Report ---
CTA CHEST WITH IV CONTRAST, 07/14/2019 INDICATION: Right-sided chest pain TECHNIQUE: Axial CT images were obtained through the chest after injection of IV contrast. Coronal oblique 2-D reconstruction images were produced. 3 plane MIP reconstruction images were produced at an [employer] workstation. All CTs at this facility utilize dose reduction techniques including automated expos ure control, iterative reconstruction and weight based dosing when appropriate to reduce patient radi ation dose to as low as reasonable achievable. COMPARISON: CT of the chest, 06/05/2018 was unable to be retrieved from the archives. FINDINGS: Evaluation of the pulmonary arteries demonstrates no central or segmental filling defects to suggest pulmonary embolism. The heart is normal in size. Evaluation of the lung parenchyma demonstrates no fo dennis airspace disease or pleural effusion. Limited imaging of the upper abdomen shows no acute abnormality. Evaluation of bony structures show n o evidence of acute bony abnormality. IMPRESSION: 1. No evidence of pulmonary embolism or acute parenchymal process. Signer Name: Sheila Ibarra MD Signed: 07/14/2019 4:30 PM Workstation Name: [id number]
== END 2019-07-14 16:52 | disposition home or self-care (01) ==
LOC: ED 11:11
DX: R09.1 Pleurisy (principal); I10 Essential (primary) hypertension; E11.9 Type 2 diabetes mellitus without complications; M19.90 Unspecified osteoarthritis, unspecified site; E78.00 Pure hypercholesterolemia, unspecified; Z90.49 Acquired absence of other specified parts of digestive tract; Z88.0 Allergy status to penicillin; Z88.5 Allergy status to narcotic agent; Z79.82 Long term (current) use of aspirin; Z79.1 Long term (current) use of non-steroidal anti-inflammatories (NSAID); Z90.710 Acquired absence of both cervix and uterus
CPT/HCPCS: 36415; 71046; 71275; 80048; 84484; 85025; 85379; 85610; 85730; 93005; 93010; 99284; Q9967

== ENCOUNTER 2019-11-15 13:54 | Emergency (ER) | payer SELFPAY ==
--- NOTE | 2019-11-15 14:34 | Emergency Department Report ---
Blank Doc - Documentation Documentation: 59-year-old female that presents with bilatearl leg swelling and pain. Patient is post-op from right rotator cuff tear. This initial assessment/diagnostic orders/clinical plan/treatment(s) is/are subject to change based on patient's health status, clinical progression and re- assessment by fellow clinical providers in the ED. Further treatment and workup at subsequent clinical providers discretion. Patient/guardians urged not to elope from the ED as their condition may be serious if not clinically assessed and managed. Initial orders include: 1- Patient sent to MAIN ED for further evaluation and treatment 2- labs 3- Doppler US 4- EKG
[2019-11-15 15:17] LABS: Basophils % (Auto) 0.4 % (0.0-1.8); Eosinophils # (Auto) 0.2 K/mm3 (0.0-0.4); Eosinophils % (Auto) 1.6 % (0.0-4.3); Hematocrit 33.5 % (30.3-42.9); Hemoglobin 11.2 gm/dl (10.1-14.3); Lymphocytes # (Auto) 2.5 K/mm3 (1.2-5.4); Lymphocytes % (Auto) 23.4 % (13.4-35.0); Mean Corpuscular HGB Conc 33 % (30-34); Mean Corpuscular Volume 81 fl (79-97); Monocytes # (Auto) 1.5 K/mm3 (0.0-0.8); Monocytes % (Auto) 14.2 % (0.0-7.3); Platelet Count 248 K/mm3 (140-440); Red Blood Count 4.17 M/mm3 (3.65-5.03); Red Cell Distribution Width 13.3 % (13.2-15.2)
[2019-11-15 15:28] LABS: INR 0.99 (0.87-1.13)
[2019-11-15 15:35] LABS: Alanine Aminotransferase 14 units/L (7-56); Albumin 3.6 g/dL (3.9-5); BUN/Creatinine Ratio 20; Blood Urea Nitrogen 6 mg/dL (7-17); Calcium 9.3 mg/dL (8.4-10.2); Hemolysis Index 6
[2019-11-15 16:10] VITALS: BP 113/77
--- NOTE | 2019-11-15 16:25 | Vascular Lab Report ---
DUPLEX DOPPLER LOWER EXTREMITY VEINS, BILATERAL INDICATION: collins leg pain and swelling. TECHNIQUE: Duplex doppler imaging was performed through the veins of both lower extremities using venous krystle stephanie and other maneuvers. COMPARISON: None available. FINDINGS: Right Common Femoral vein: Negative. Right Superficial Femoral vein: Negative. Right Popliteal vein: Negative. Right Calf veins: Negative. Left Common Femoral vein: Negative. Left Superficial Femoral vein: Negative. Left Popliteal vein: Negative. Left Calf veins: Negative. Additional findings: None. IMPRESSION: 1. No sonographic evidence for DVT in either lower extremity. Signer Name: Zackary Call MD Signed: 11/15/2019 4:20 PM Workstation Name: [id number]
--- NOTE | 2019-11-15 16:39 | Emergency Department Report ---
ED General Adult HPI - General Chief complaint: Extremity Injury, Lower Stated complaint: SWELLING IN FEET ANKLES AND LEGS Time Seen by Provider: 11/15/19 14:23 Source: patient Mode of arrival: Ambulatory Limitations: No Limitations - History of Present Illness Initial comments: Patient is 59 years old female with history of hypertension, diabetes and a recent right shoulder rotator cuff surgery. Patient presented to the ER complaining of bilateral lower extremity swelling for the last 5 days. Patient denied any prolonged immobilization. Patient denied any fever or chills. No chest pain or shortness of breath. Severity scale (0 -10): 10 - Related Data Home Medications Medication Instructions Recorded Confirmed Last Taken Aspirin [Aspirin BABY CHEW TAB] 81 mg PO QDAY 05/18/17 06/05/18 05/17/17 amLODIPine 10 mg PO DAILY 05/18/17 06/05/18 05/17/17 Previous Rx's Medication Instructions Recorded Last Taken Type Cyclobenzaprine [Flexeril] 10 mg PO TID PRN #10 tablet 06/07/19 Unknown Rx Ibuprofen [Motrin] 800 mg PO Q8HR PRN #30 tablet 06/07/19 Unknown Rx predniSONE [Deltasone] 20 mg PO DAILY #5 tablet 06/07/19 Unknown Rx Naproxen [Naprosyn] 500 mg PO BID #20 tablet 07/14/19 Unknown Rx Allergies Allergy/AdvReac Type Severity Reaction Status Date / Time codeine Allergy Vomiting Verified 11/15/19 13:58 Penicillins Allergy Hives Verified 11/15/19 13:58 ketorolac [From Toradol] AdvReac Anaphylaxis Verified 11/15/19 13:58 ED Review of Systems ROS: Stated complaint: SWELLING IN FEET ANKLES AND LEGS Other details as noted in HPI Comment: All other systems reviewed and negative Constitutional: denies: chills, fever Respiratory: denies: cough, shortness of breath, SOB with exertion Cardiovascular: denies: chest pain Gastrointestinal: denies: abdominal pain, nausea, vomiting, diarrhea, constipation, hematemesis, melena, hematochezia Musculoskeletal: denies: back pain Neurological: denies: headache, weakness, numbness, paresthesias, confusion, abnormal gait ED Past Medical Hx - Past Medical History Hx Hypertension: Yes Hx CVA: Yes ("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 HYSTERECTOMY/ ROTATOR CUFF SURGERY. surgery to remove gallstones - Social History Smoking Status: Current Every Day Smoker Substance Use Type: None - Medications Home Medications: Home Medications Medication Instructions Recorded Confirmed Last Taken Type Aspirin [Aspirin BABY CHEW TAB] 81 mg PO QDAY 05/18/17 06/05/18 05/17/17 History amLODIPine 10 mg PO DAILY 05/18/17 06/05/18 05/17/17 History Cyclobenzaprine [Flexeril] 10 mg PO TID PRN #10 tablet 06/07/19 Unknown Rx Ibuprofen [Motrin] 800 mg PO Q8HR PRN #30 tablet 06/07/19 Unknown Rx predniSONE [Deltasone] 20 mg PO DAILY #5 tablet 06/07/19 Unknown Rx Naproxen [Naprosyn] 500 mg PO BID #20 tablet 07/14/19 Unknown Rx ED Physical Exam - General Limitations: No Limitations General appearance: alert, in no apparent distress - Head Head exam: Present: atraumatic, normocephalic, normal inspection - Eye Eye exam: Present: normal appearance, PERRL - ENT ENT exam: Present: normal exam, normal orophraynx, mucous membranes moist - Neck Neck exam: Present: normal inspection, full ROM. Absent: tenderness, meningismus, lymphadenopathy, thyromegaly - Respiratory Respiratory exam: Present: normal lung sounds bilaterally - Cardiovascular Cardiovascular Exam: Present: regular rate, normal rhythm, normal heart sounds - GI/Abdominal GI/Abdominal exam: Present: soft, normal bowel sounds. Absent: distended, tenderness, guarding, rebound, rigid, organomegaly, mass, bruit, pulsatile mass, hernia - Extremities Exam Extremities exam: Present: normal inspection, full ROM, normal capillary refill, pedal edema. Absent: tenderness, joint swelling, calf tenderness - Back Exam Back exam: Present: normal inspection, full ROM. Absent: CVA tenderness (R), CVA tenderness (L), muscle spasm, paraspinal tenderness, vertebral tenderness - Neurological Exam Neurological exam: Present: alert, oriented X3, CN II-XII intact - Psychiatric Psychiatric exam: Present: normal mood - Skin Skin exam: Present: warm, intact, normal color ED Course Vital Signs 11/15/19 11/15/19 11/15/19 14:34 16:09 16:10 Temperature 96.9 F L Pulse Rate 95 H 87 Respiratory 20 20 20 Rate Blood Pressure 154/71 Blood Pressure 113/77 [Left] O2 Sat by Pulse 100 95 Oximetry ED Medical Decision Making - Lab Data Result diagrams: 11/15/19 14:50 11/15/19 14:50 - EKG Data -: EKG Interpreted by Al EKG shows normal: sinus rhythm Rate: normal - EKG Data Interpretation: no acute changes - Radiology Data Radiology results: report reviewed - Medical Decision Making Patient is 59 years old female with history of hypertension, diabetes and a recent right shoulder rotator cuff surgery. Patient presented to the ER complaining of bilateral lower extremity swelling for the last 5 days. Patient denied any prolonged immobilization. Patient denied any fever or chills. No chest pain or shortness of breath. Labs reviewed and is unremarkable. Bilateral lower extremity Doppler ultrasound is negative for DVT. Chest x-ray is unremarkable except for slightly congested lung. Patient given prescription for Lasix and K-Dur and advised to follow-up with her primary care physician in the next 2 to 3 days and to return to the ER if she develop any new symptoms. Critical care attestation.: If time is entered above; I have spent that time in minutes in the direct care of this critically ill patient, excluding procedure time. ED Disposition Clinical Impression: Peripheral edema Disposition: DC-01 TO HOME OR SELFCARE Is pt being admited?: No Condition: Stable Instructions: Leg Edema (ED) Referrals: PRIMARY CARE, [Primary Care Provider] - 3-5 Days
--- NOTE | 2019-11-15 16:59 | XRay Report ---
CHEST 1 VIEW INDICATION: sob. COMPARISON: 07/14/2019 FINDINGS: Support devices: None. Heart: Mildly enlarged, unchanged. Lungs/Pleura: Mild diffuse interstitial opacities. No focal consolidation, significant effusion, or p neumothorax. IMPRESSION: 1. Persistent cardiomegaly with probable pulmonary venous hypertension. There may be very mild inters titial edema, no pleural effusions. Signer Name: Zackary Call MD Signed: 11/15/2019 4:54 PM Workstation Name: [id number]
== END 2019-11-15 17:53 | disposition home or self-care (01) ==
LOC: ED 13:54
DX: R60.9 Edema, unspecified (principal); I10 Essential (primary) hypertension; E11.9 Type 2 diabetes mellitus without complications; M17.0 Bilateral primary osteoarthritis of knee; M16.0 Bilateral primary osteoarthritis of hip; M19.042 Primary osteoarthritis, left hand; M19.041 Primary osteoarthritis, right hand; E78.00 Pure hypercholesterolemia, unspecified; F17.200 Nicotine dependence, unspecified, uncomplicated; Z86.73 Personal history of transient ischemic attack (TIA), and cerebral infarction without residual deficits; Z98.890 Other specified postprocedural states; Z90.49 Acquired absence of other specified parts of digestive tract; Z88.0 Allergy status to penicillin; Z88.8 Allergy status to other drugs, medicaments and biological substances; Z79.1 Long term (current) use of non-steroidal anti-inflammatories (NSAID); Z79.899 Other long term (current) drug therapy
CPT/HCPCS: 36415; 71045; 80053; 83880; 84484; 85025; 85610; 93005; 93010; 93970

== ENCOUNTER 2020-07-04 07:32 | Emergency (ER) | payer OTHER, SELFPAY ==
[2020-07-04] MEDS ORDERED: ASPIRIN 325 MG TAB PO ONE (07:48)
[2020-07-04 08:20] LABS: Basophils # (Auto) 0.1 K/mm3 (0.0-0.1); Basophils % (Auto) 0.4 % (0.0-1.8); Eosinophils # (Auto) 0.2 K/mm3 (0.0-0.4); Eosinophils % (Auto) 2.2 % (0.0-4.3); Hematocrit 39.7 % (30.3-42.9); Hemoglobin 13.1 gm/dl (10.1-14.3); Lymphocytes # (Auto) 3.8 K/mm3 (1.2-5.4); Lymphocytes % (Auto) 34.2 % (13.4-35.0); Mean Corpuscular HGB Conc 33 % (30-34); Mean Corpuscular Volume 89 fl (79-97); Monocytes # (Auto) 0.8 K/mm3 (0.0-0.8); Monocytes % (Auto) 7.5 % (0.0-7.3); Platelet Count 347 K/mm3 (140-440); Red Blood Count 4.45 M/mm3 (3.65-5.03)
[2020-07-04] MEDS ORDERED: ONDANSETRON 4 MG ODT TAB PO ONE (08:36)
[2020-07-04] MEDS ORDERED: BENZONATATE 100 MG CAP PO ONE (08:36)
[2020-07-04] MEDS ORDERED: HYDROcodone/ACETAMINOPHEN 5-325 MG TAB PO ONE (08:36)
--- NOTE | 2020-07-04 08:38 | XRay Report ---
CHEST 2 VIEWS INDICATION / CLINICAL INFORMATION: Chest Pain. COMPARISON: 11/15/2019 FINDINGS: SUPPORT DEVICES: None. HEART / MEDIASTINUM: Stable. LUNGS / PLEURA: Previously noted diffuse pulmonary opacities are similar. No confluent infiltrate. No pneumothorax or pleural effusion. ADDITIONAL FINDINGS: Partially visualized ACDF of the lower cervical spine is stable. IMPRESSION: 1. No acute findings. The previous noted findings from prior exam dated 11/15/2019 are unchanged. Signer Name: Rishi Phan MD Signed: 07/04/2020 8:34 AM Workstation Name: [id number]
[2020-07-04 08:41] LABS: Blood Urea Nitrogen 7 mg/dL (7-17); Calcium 9.3 mg/dL (8.4-10.2); Hemolysis Index 9
[2020-07-04 08:42] LABS: BUN/Creatinine Ratio 23
--- NOTE | 2020-07-04 09:58 | Emergency Department Report ---
ED Shortness of Breath HPI - General Chief Complaint: Chest Pain Stated Complaint: COUGH/EMESIS/CHILLS Time Seen by Provider: 07/04/20 08:33 Source: patient Mode of arrival: Ambulatory Limitations: No Limitations - History of Present Illness Initial Comments: Patient is a 59-year-old F [place] female who is presenting with a cough for the last 4 days. Patient states cough is productive with clear sputum. Has some subjective fevers chills. Minimal body aches. Patient states she did get COVID-19 testing 2 weeks ago which was negative. Patient denies any nausea vomiting or diarrhea. - Related Data Home Medications Medication Instructions Recorded Confirmed Last Taken Aspirin [Aspirin BABY CHEW TAB] 81 mg PO QDAY 05/18/17 06/05/18 05/17/17 amLODIPine 10 mg PO DAILY 05/18/17 06/05/18 05/17/17 Previous Rx's Medication Instructions Recorded Last Taken Type Cyclobenzaprine [Flexeril] 10 mg PO TID PRN #10 tablet 06/07/19 Unknown Rx Ibuprofen [Motrin] 800 mg PO Q8HR PRN #30 tablet 06/07/19 Unknown Rx predniSONE [Deltasone] 20 mg PO DAILY #5 tablet 06/07/19 Unknown Rx Naproxen [Naprosyn] 500 mg PO BID #20 tablet 07/14/19 Unknown Rx Furosemide [Lasix] 20 mg PO QDAY #14 tablet 11/15/19 Unknown Rx Potassium Chloride [K-Dur] 10 meq PO QDAY #14 tablet 11/15/19 Unknown Rx Albuterol Mdi (or & Nicu Only) 2 puff IH QID PRN #1 inhalation 07/04/20 Unknown Rx [ProAir HFA Inhaler] Benzonatate [Tessalon Perles] 100 mg PO Q8HR #10 capsule 07/04/20 Unknown Rx HYDROcodone/APAP 5-325 [[place] 1 each PO Q6HR PRN #10 tablet 07/04/20 Unknown Rx 5/325] predniSONE [Deltasone] 20 mg PO QDAY #5 tab 07/04/20 Unknown Rx Allergies Allergy/AdvReac Type Severity Reaction Status Date / Time codeine Allergy Vomiting Verified 11/15/19 13:58 Penicillins Allergy Hives Verified 11/15/19 13:58 ketorolac [From Toradol] AdvReac Anaphylaxis Verified 11/15/19 13:58 ED Review of Systems ROS: Stated complaint: COUGH/EMESIS/CHILLS Other details as noted in HPI Comment: All other systems reviewed and negative ED Past Medical Hx - Past Medical History Previous Medical History?: Yes Hx Hypertension: Yes 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 HYSTERECTOMY/ ROTATOR CUFF SURGERY. surgery to remove gallstones - Social History Smoking Status: Current Every Day Smoker Substance Use Type: None - Medications Home Medications: Home Medications Medication Instructions Recorded Confirmed Last Taken Type Aspirin [Aspirin BABY CHEW TAB] 81 mg PO QDAY 05/18/17 06/05/18 05/17/17 History amLODIPine 10 mg PO DAILY 05/18/17 06/05/18 05/17/17 History Cyclobenzaprine [Flexeril] 10 mg PO TID PRN #10 tablet 06/07/19 Unknown Rx Ibuprofen [Motrin] 800 mg PO Q8HR PRN #30 tablet 06/07/19 Unknown Rx predniSONE [Deltasone] 20 mg PO DAILY #5 tablet 06/07/19 Unknown Rx Naproxen [Naprosyn] 500 mg PO BID #20 tablet 07/14/19 Unknown Rx Furosemide [Lasix] 20 mg PO QDAY #14 tablet 11/15/19 Unknown Rx Potassium Chloride [K-Dur] 10 meq PO QDAY #14 tablet 11/15/19 Unknown Rx Albuterol Mdi (or & Nicu Only) 2 puff IH QID PRN #1 inhalation 07/04/20 Unknown Rx [ProAir HFA Inhaler] Benzonatate [Tessalon Perles] 100 mg PO Q8HR #10 capsule 07/04/20 Unknown Rx HYDROcodone/APAP 5-325 [[place] 1 each PO Q6HR PRN #10 tablet 07/04/20 Unknown Rx 5/325] predniSONE [Deltasone] 20 mg PO QDAY #5 tab 07/04/20 Unknown Rx ED Physical Exam - General Limitations: No Limitations General appearance: alert, in no apparent distress - Head Head exam: Present: atraumatic, normocephalic - Eye Eye exam: Present: normal appearance - ENT ENT exam: Present: mucous membranes moist - Neck Neck exam: Present: normal inspection - Respiratory Respiratory exam: Present: normal lung sounds bilaterally. Absent: respiratory distress, wheezes, rales, rhonchi - Cardiovascular Cardiovascular Exam: Present: regular rate, normal rhythm. Absent: normal heart sounds, systolic murmur, diastolic murmur, rubs, gallop - GI/Abdominal GI/Abdominal exam: Present: soft, normal bowel sounds. Absent: distended, tenderness, guarding, rebound - Extremities Exam Extremities exam: Present: normal inspection - Back Exam Back exam: Present: normal inspection - Neurological Exam Neurological exam: Present: alert, oriented X3 - Psychiatric Psychiatric exam: Present: normal affect, normal mood - Skin Skin exam: Present: warm, dry, intact, normal color. Absent: rash ED Course Vital Signs 07/04/20 07:43 Temperature 98.0 F Pulse Rate 86 Respiratory 18 Rate Blood Pressure 134/90 O2 Sat by Pulse 100 Oximetry ED Medical Decision Making - Lab Data Result diagrams: 07/04/20 08:02 07/04/20 08:02 Lab Results 07/04/20 07/04/20 Range/Units 08:02 08:02 WBC 11.2 H (4.5-11.0) K/mm3 RBC 4.45 (3.65-5.03) M/mm3 Hgb 13.1 (10.1-14.3) gm/dl Hct 39.7 (30.3-42.9) % MCV 89 (79-97) fl MCH 30 (28-32) pg MCHC 33 (30-34) % RDW 14.0 (13.2-15.2) % Plt Count 347 (140-440) K/mm3 Lymph % (Auto) 34.2 (13.4-35.0) % [place] % (Auto) 7.5 H (0.0-7.3) % Eos % (Auto) 2.2 (0.0-4.3) % Baso % (Auto) 0.4 (0.0-1.8) % Lymph # (Auto) 3.8 (1.2-5.4) K/mm3 [place] # (Auto) 0.8 (0.0-0.8) K/mm3 Eos # (Auto) 0.2 (0.0-0.4) K/mm3 Baso # (Auto) 0.1 (0.0-0.1) K/mm3 Seg Neutrophils % 55.7 (40.0-70.0) % Seg Neutrophils # 6.2 (1.8-7.7) K/mm3 Sodium 140 (137-145) mmol/L Potassium 3.8 (3.6-5.0) mmol/L Chloride 101.8 (98-107) mmol/L Carbon Dioxide 28 (22-30) mmol/L Anion Gap 14 mmol/L BUN 7 (7-17) mg/dL Creatinine 0.3 L (0.6-1.2) mg/dL Estimated GFR > 60 ml/min BUN/Creatinine Ratio 23 % Glucose 83 (65-100) mg/dL Calcium 9.3 (8.4-10.2) mg/dL Troponin T < 0.010 (0.00-0.029) ng/mL - Radiology Data Ordering Physician: MARY KAY MCFARLAND MD Date of Service: 07/04/20 Procedure(s): XR chest routine 2V Accession Number(s): [id number] cc: MARY KAY MCFARLAND MD Fluoro Time In Minutes: CHEST 2 VIEWS INDICATION / CLINICAL INFORMATION: Chest Pain. COMPARISON: 11/15/2019 FINDINGS: SUPPORT DEVICES: None. HEART / MEDIASTINUM: Stable. LUNGS / PLEURA: Previously noted diffuse pulmonary opacities are similar. No confluent infiltrate. No pneumothorax or pleural effusion. ADDITIONAL FINDINGS: Partially visualized ACDF of the lower cervical spine is stable. IMPRESSION: 1. No acute findings. The previous noted findings from prior exam dated 11/15/2019 are unchanged. Signer Name: Rishi Phan MD Signed: 07/04/2020 8:34 AM Workstation Name: [id number] - Medical Decision Making Patient is a 59-year-old F [place] female is presenting with cough cold congestion. Chest x-ray is negative for pneumonia. Her vital signs are within normal limits. Because of the COVID-19 pandemic I do suggest that the patient get outpatient COVID-19 testing. Her last test was done at [facility] and she can return there for outpatient testing. Patient will be given medication for symptomatic relief when she is stable for discharge. Critical care attestation.: If time is entered above; I have spent that time in minutes in the direct care of this critically ill patient, excluding procedure time. ED Disposition Clinical Impression: Suspected COVID-19 virus infection Acute bronchitis Qualifiers: Bronchitis organism: unspecified organism Qualified Code(s): J20.9 - Acute bronchitis, unspecified Disposition: DC-01 TO HOME OR SELFCARE Is pt being admited?: No Does the pt Need Aspirin: No Condition: Stable Instructions: Acute Bronchitis (ED) Referrals: PRIMARY CARE, [Primary Care Provider] - 3-5 Days Time of Disposition: 09:58
[2020-07-04] MEDS ORDERED: ASPIRIN 325 MG TAB ONE (10:17)
[2020-07-04 10:32] VITALS: BP 148/92
== END 2020-07-04 10:30 | disposition home or self-care (01) ==
LOC: ED 07:32
DX: J20.9 Acute bronchitis, unspecified (principal); I10 Essential (primary) hypertension; E78.00 Pure hypercholesterolemia, unspecified; M13.88 Other specified arthritis, other site; F17.200 Nicotine dependence, unspecified, uncomplicated; Z90.49 Acquired absence of other specified parts of digestive tract; Z20.828 Contact with and (suspected) exposure to other viral communicable diseases; Z90.710 Acquired absence of both cervix and uterus; Z88.0 Allergy status to penicillin; Z88.6 Allergy status to analgesic agent
CPT/HCPCS: 36415; 71046; 80048; 84484; 85025; 93005; Q0162

== ENCOUNTER 2021-03-04 10:05 | Outpatient (CLI) | payer OTHER ==
--- NOTE | 2021-03-04 12:11 | XRay Report ---
Right knee 2 views INDICATION: Right knee pain IMPRESSION: No fracture or subluxation of the right knee identified. No significant knee effusion. Mi nimal degenerative change. Signer Name: Santiago Greene MD Signed: 03/04/2021 12:06 PM Workstation Name: [id number]
== END 2021-03-04 10:06 | disposition home or self-care (01) ==
LOC: XRAY 10:05
PROVIDERS: ATTEND Internal Medicine
DX: M17.11 Unilateral primary osteoarthritis, right knee (principal); E11.9 Type 2 diabetes mellitus without complications; I10 Essential (primary) hypertension; E03.9 Hypothyroidism, unspecified

== ENCOUNTER 2021-04-03 12:15 | Emergency (ER) | payer SELFPAY ==
[2021-04-03 12:48] VITALS: BP 146/89
[2021-04-03] MEDS ORDERED: CYCLOBENZAPRINE 10 MG TAB PO ONE (13:33)
--- NOTE | 2021-04-03 13:36 | Emergency Department Report ---
ED General Adult HPI - General Chief complaint: Extremity Problem,Nontraumatic Stated complaint: RT HIP PAINS Time Seen by Provider: 04/03/21 13:22 Source: patient Mode of arrival: Ambulatory Limitations: No Limitations - History of Present Illness Initial comments: 60-year-old female presenting with chief complaint of right posterior rib pain gradual onset over a week ago, radiates down to the hip. States that if she lies still in bed she does not really feel the pain but when she moves she feels it worse. No chest pain shortness of breath abdominal pain dysuria hematuria nausea or vomiting. Pain is moderate nothing makes it better or worse. Severity scale (0 -10): 10 - Related Data Home Medications Medication Instructions Recorded Confirmed Last Taken Aspirin [Aspirin BABY CHEW TAB] 81 mg PO QDAY 05/18/17 06/05/18 05/17/17 amLODIPine 10 mg PO DAILY 05/18/17 06/05/18 05/17/17 Previous Rx's Medication Instructions Recorded Last Taken Type Ibuprofen [Motrin] 800 mg PO Q8HR PRN #30 tablet 06/07/19 Unknown Rx predniSONE [Deltasone] 20 mg PO DAILY #5 tablet 06/07/19 Unknown Rx Furosemide [Lasix] 20 mg PO QDAY #14 tablet 11/15/19 Unknown Rx Potassium Chloride [K-Dur] 10 meq PO QDAY #14 tablet 11/15/19 Unknown Rx Albuterol Mdi (or & Nicu Only) 2 puff IH QID PRN #1 inhalation 07/04/20 Unknown Rx [ProAir HFA Inhaler] Benzonatate [Tessalon Perles] 100 mg PO Q8HR #10 capsule 07/04/20 Unknown Rx HYDROcodone/APAP 5-325 [[place] 1 each PO Q6HR PRN #10 tablet 07/04/20 Unknown Rx 5/325] predniSONE [Deltasone] 20 mg PO QDAY #5 tab 07/04/20 Unknown Rx Cyclobenzaprine [Flexeril 10 MG 10 mg PO TID PRN #10 tablet 04/03/21 Unknown Rx TAB] Lidocaine [Lidoderm] 1 each TP ONCE #15 adh..patch 04/03/21 Unknown Rx Naproxen [Naprosyn TAB] 500 mg PO BID #20 tablet 04/03/21 Unknown Rx Allergies Allergy/AdvReac Type Severity Reaction Status Date / Time codeine Allergy Vomiting Verified 11/15/19 13:58 Penicillins Allergy Hives Verified 11/15/19 13:58 ketorolac [From Toradol] AdvReac Anaphylaxis Verified 11/15/19 13:58 ED Review of Systems ROS: Stated complaint: RT HIP PAINS Other details as noted in HPI Comment: All other systems reviewed and negative ED Past Medical Hx - Past Medical History Previous Medical History?: Yes Hx Hypertension: Yes 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 HYSTERECTOMY/ ROTATOR CUFF SURGERY. surgery to remove gallstones - Social History Smoking Status: Current Every Day Smoker Substance Use Type: None - Medications Home Medications: Home Medications Medication Instructions Recorded Confirmed Last Taken Type Aspirin [Aspirin BABY CHEW TAB] 81 mg PO QDAY 05/18/17 06/05/18 05/17/17 History amLODIPine 10 mg PO DAILY 05/18/17 06/05/18 05/17/17 History Ibuprofen [Motrin] 800 mg PO Q8HR PRN #30 tablet 06/07/19 Unknown Rx predniSONE [Deltasone] 20 mg PO DAILY #5 tablet 06/07/19 Unknown Rx Furosemide [Lasix] 20 mg PO QDAY #14 tablet 11/15/19 Unknown Rx Potassium Chloride [K-Dur] 10 meq PO QDAY #14 tablet 11/15/19 Unknown Rx Albuterol Mdi (or & Nicu Only) 2 puff IH QID PRN #1 inhalation 07/04/20 Unknown Rx [ProAir HFA Inhaler] Benzonatate [Tessalon Perles] 100 mg PO Q8HR #10 capsule 07/04/20 Unknown Rx HYDROcodone/APAP 5-325 [[place] 1 each PO Q6HR PRN #10 tablet 07/04/20 Unknown Rx 5/325] predniSONE [Deltasone] 20 mg PO QDAY #5 tab 07/04/20 Unknown Rx Cyclobenzaprine [Flexeril 10 MG 10 mg PO TID PRN #10 tablet 04/03/21 Unknown Rx TAB] Lidocaine [Lidoderm] 1 each TP ONCE #15 adh..patch 04/03/21 Unknown Rx Naproxen [Naprosyn TAB] 500 mg PO BID #20 tablet 04/03/21 Unknown Rx ED Physical Exam - General Limitations: No Limitations General appearance: alert, in no apparent distress - Head Head exam: Present: atraumatic, normocephalic - Eye Eye exam: Present: normal appearance - ENT ENT exam: Present: mucous membranes moist - Neck Neck exam: Present: normal inspection - Respiratory Respiratory exam: Present: normal lung sounds bilaterally. Absent: respiratory distress - Cardiovascular Cardiovascular Exam: Present: regular rate, normal rhythm. Absent: systolic murmur, diastolic murmur, rubs, gallop - GI/Abdominal GI/Abdominal exam: Present: soft, normal bowel sounds - Extremities Exam Extremities exam: Present: normal inspection - Back Exam Back exam: Present: normal inspection, other (No midline spinal pain or tenderness however there is tenderness and pain with movement noted over the right posterior lower ribs) - Neurological Exam Neurological exam: Present: alert, oriented X3 - Psychiatric Psychiatric exam: Present: normal affect, normal mood - Skin Skin exam: Present: warm, dry, intact, normal color. Absent: rash ED Course Vital Signs 04/03/21 12:47 Temperature 98.6 F Pulse Rate 76 Respiratory 18 Rate Blood Pressure 146/89 [Right] O2 Sat by Pulse 97 Oximetry ED Medical Decision Making - Radiology Data Radiology results: report reviewed neg rib series - Medical Decision Making Patient presenting with right-sided lower rib pain in the back onset a week ago. On exam there is reproducible pain with palpation and movement in this area. Heart sounds are normal lungs are clear and she denies any other associated symptoms or complaints. It does radiate toward the hip and is worse with movement better with rest. No urinary complaints. No midline spinal pain or tenderness. Probably muscle strain versus costochondritis, x-ray pending. X-ray is negative for acute findings. I do suspect muscle strain as the source of pain versus costochondritis. Will prescribe muscle relaxer and anti- inflammatory as well as Lidoderm patches referred to primary care for follow-up. Advised that she must return if other symptoms such as difficulty breathing chest pain abdominal pain or urinary complaints arise. - Differential Diagnosis Muscle strain, costochondritis Critical care attestation.: If time is entered above; I have spent that time in minutes in the direct care of this critically ill patient, excluding procedure time. ED Disposition Clinical Impression: Thoracic myofascial strain Qualifiers: Encounter type: initial encounter Qualified Code(s): S29.019A - Strain of muscle and tendon of unspecified wall of thorax, initial encounter Disposition: TO HOME OR SELFCARE Is pt being admited?: No Condition: Good Instructions: Muscle Strain Prescriptions: Cyclobenzaprine [Flexeril 10 MG TAB] 10 mg PO TID PRN #10 tablet PRN Reason: Muscle Spasm Lidocaine [Lidoderm] 1 each TP ONCE #15 adh..patch Naproxen [Naprosyn TAB] 500 mg PO BID #20 tablet Referrals: PRIMARY CARE, [Primary Care Provider] - 3-5 Days Time of Disposition: 14:33
--- NOTE | 2021-04-03 14:06 | XRay Report ---
RIGHT RIBS 4 VIEWS INDICATION: pain. COMPARISON: None. IMPRESSION: No displaced right rib deformity is detected on x-ray. The right lung is clear. Signer Name: Trenton Pak Jr, MD Signed: 04/03/2021 2:02 PM Workstation Name: [id number]
== END 2021-04-03 14:58 | disposition home or self-care (01) ==
LOC: ED 12:15
DX: S29.019A Strain of muscle and tendon of unspecified wall of thorax, initial encounter (principal); I10 Essential (primary) hypertension; E11.9 Type 2 diabetes mellitus without complications; M19.90 Unspecified osteoarthritis, unspecified site; F17.200 Nicotine dependence, unspecified, uncomplicated; E78.00 Pure hypercholesterolemia, unspecified; Z90.49 Acquired absence of other specified parts of digestive tract; Z88.0 Allergy status to penicillin; Z88.8 Allergy status to other drugs, medicaments and biological substances; Z88.5 Allergy status to narcotic agent; Z79.899 Other long term (current) drug therapy; Z79.82 Long term (current) use of aspirin; X50.1XXA Overexertion from prolonged static or awkward postures, initial encounter; Y93.89 Activity, other specified; Y92.89 Other specified places as the place of occurrence of the external cause; Y99.8 Other external cause status
CPT/HCPCS: 99283

== ENCOUNTER 2021-08-14 15:38 | Emergency (ER) | payer MEDICAID ==
[2021-08-14] MEDS ORDERED: SODIUM CHLORIDE 0.9% 1000 ML 1,000 ML IV ONE (16:39)
[2021-08-14] MEDS ORDERED: BUTALB/ACETAMINOPHEN/CAFFEINE TAB PO ONE (16:39)
[2021-08-14] MEDS ORDERED: METOCLOPRAMIDE 10 MG/2 ML INJ IV ONE (16:40)
[2021-08-14] MEDS ORDERED: diphenhydrAMINE 50 MG/ML VIAL IV ONE (16:40)
--- NOTE | 2021-08-14 16:43 | Emergency Department Report ---
ED General Adult HPI - General Chief complaint: Upper Respiratory Infection Stated complaint: COVID-19 Time Seen by Provider: 08/14/21 16:27 Source: patient Mode of arrival: Ambulatory Limitations: No Limitations - History of Present Illness Initial comments: The patient presents to the emergency department chief complaint of not feeling well. Patient states on Tuesday she began to have body aches and a cough and went to [facility] to get a Covid test on Tuesday and she was called today and was told it was positive. She was told to come to the hospital because she has had a headache since Tuesday as well as chest pain. Patient jade cribes the headache as throbbing in nature and not the worst headache of her life -: Gradual Location: head, chest Severity scale (0 -10): 4 Quality: other (Throbbing( ROSALES)/ Dull(CP)) Improves with: none Worsens with: none Associated Symptoms: denies other symptoms Treatments Prior to Arrival: none - Related Data Home Medications Medication Instructions Recorded Confirmed Last Taken Aspirin [Aspirin BABY CHEW TAB] 81 mg PO QDAY 05/18/17 06/05/18 05/17/17 amLODIPine 10 mg PO DAILY 05/18/17 06/05/18 05/17/17 Previous Rx's Medication Instructions Recorded Last Taken Type Ibuprofen [Motrin] 800 mg PO Q8HR PRN #30 tablet 06/07/19 Unknown Rx predniSONE [Deltasone] 20 mg PO DAILY #5 tablet 06/07/19 Unknown Rx Furosemide [Lasix] 20 mg PO QDAY #14 tablet 11/15/19 Unknown Rx Potassium Chloride [K-Dur] 10 meq PO QDAY #14 tablet 11/15/19 Unknown Rx Albuterol Mdi (or & Nicu Only) 2 puff IH QID PRN #1 inhalation 07/04/20 Unknown Rx [ProAir HFA Inhaler] Benzonatate [Tessalon Perles] 100 mg PO Q8HR #10 capsule 07/04/20 Unknown Rx HYDROcodone/APAP 5-325 [[place] 1 each PO Q6HR PRN #10 tablet 07/04/20 Unknown Rx 5/325] predniSONE [Deltasone] 20 mg PO QDAY #5 tab 07/04/20 Unknown Rx Cyclobenzaprine [Flexeril 10 MG 10 mg PO TID PRN #10 tablet 04/03/21 Unknown Rx TAB] Lidocaine [Lidoderm] 1 each TP ONCE #15 adh..patch 04/03/21 Unknown Rx Naproxen [Naprosyn TAB] 500 mg PO BID #20 tablet 04/03/21 Unknown Rx Allergies Allergy/AdvReac Type Severity Reaction Status Date / Time codeine Allergy Vomiting Verified 08/14/21 16:01 Penicillins Allergy Hives Verified 08/14/21 16:01 ketorolac [From Toradol] AdvReac Anaphylaxis Verified 08/14/21 16:01 ED Review of Systems ROS: Stated complaint: COVID-19 Other details as noted in HPI Comment: All other systems reviewed and negative Constitutional: denies: chills, fever Eyes: denies: eye pain, eye discharge, vision change ENT: denies: ear pain, throat pain Respiratory: denies: cough, shortness of breath, wheezing Cardiovascular: chest pain. denies: palpitations Endocrine: no symptoms reported Gastrointestinal: denies: abdominal pain, nausea, diarrhea Genitourinary: denies: urgency, dysuria, discharge Musculoskeletal: denies: back pain, joint swelling, arthralgia Skin: denies: rash, lesions Neurological: headache. denies: weakness, paresthesias Psychiatric: denies: anxiety, depression Hematological/Lymphatic: denies: easy bleeding, easy bruising ED Past Medical Hx - Past Medical History Hx Hypertension: Yes Hx CVA: Yes ("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 HYSTERECTOMY/ ROTATOR CUFF SURGERY. surgery to remove gallstones - Social History Smoking Status: Current Every Day Smoker Substance Use Type: None - Medications Home Medications: Home Medications Medication Instructions Recorded Confirmed Last Taken Type Aspirin [Aspirin BABY CHEW TAB] 81 mg PO QDAY 05/18/17 06/05/18 05/17/17 History amLODIPine 10 mg PO DAILY 05/18/17 06/05/18 05/17/17 History Ibuprofen [Motrin] 800 mg PO Q8HR PRN #30 tablet 06/07/19 Unknown Rx predniSONE [Deltasone] 20 mg PO DAILY #5 tablet 06/07/19 Unknown Rx Furosemide [Lasix] 20 mg PO QDAY #14 tablet 11/15/19 Unknown Rx Potassium Chloride [K-Dur] 10 meq PO QDAY #14 tablet 11/15/19 Unknown Rx Albuterol Mdi (or & Nicu Only) 2 puff IH QID PRN #1 inhalation 07/04/20 Unknown Rx [ProAir HFA Inhaler] Benzonatate [Tessalon Perles] 100 mg PO Q8HR #10 capsule 07/04/20 Unknown Rx HYDROcodone/APAP 5-325 [[place] 1 each PO Q6HR PRN #10 tablet 07/04/20 Unknown Rx 5/325] predniSONE [Deltasone] 20 mg PO QDAY #5 tab 07/04/20 Unknown Rx Cyclobenzaprine [Flexeril 10 MG 10 mg PO TID PRN #10 tablet 04/03/21 Unknown Rx TAB] Lidocaine [Lidoderm] 1 each TP ONCE #15 adh..patch 04/03/21 Unknown Rx Naproxen [Naprosyn TAB] 500 mg PO BID #20 tablet 04/03/21 Unknown Rx ED Physical Exam - General Limitations: No Limitations General appearance: alert, in no apparent distress - Head Head exam: Present: atraumatic, normocephalic - Eye Eye exam: Present: normal appearance, PERRL, EOMI - ENT ENT exam: Present: mucous membranes moist - Neck Neck exam: Present: normal inspection - Respiratory Respiratory exam: Present: normal lung sounds bilaterally. Absent: respiratory distress - Cardiovascular Cardiovascular Exam: Present: regular rate, normal rhythm. Absent: systolic murmur, diastolic murmur, rubs, gallop - GI/Abdominal GI/Abdominal exam: Present: soft, normal bowel sounds. Absent: distended, tenderness - Extremities Exam Extremities exam: Present: normal inspection - Back Exam Back exam: Present: normal inspection - Neurological Exam Neurological exam: Present: alert, oriented X3, CN II-XII intact. Absent: motor sensory deficit - Psychiatric Psychiatric exam: Present: normal affect, normal mood - Skin Skin exam: Present: warm, dry, intact, normal color. Absent: rash ED Course Vital Signs 08/14/21 16:07 Temperature 99.3 F Pulse Rate 79 Respiratory 20 Rate Blood Pressure 143/85 O2 Sat by Pulse 95 Oximetry ED Medical Decision Making - Lab Data Result diagrams: 08/14/21 16:59 08/14/21 16:59 Lab Results 08/14/21 08/14/21 Range/Units 16:59 16:59 WBC 4.6 (4.5-11.0) K/mm3 RBC 5.03 (3.65-5.03) M/mm3 Hgb 14.7 H (10.1-14.3) gm/dl Hct 45.8 H (30.3-42.9) % MCV 91 (79-97) fl MCH 29 (28-32) pg MCHC 32 (30-34) % RDW 13.9 (13.2-15.2) % Plt Count 170 (140-440) K/mm3 Lymph % (Auto) 41.3 H (13.4-35.0) % [place] % (Auto) 14.1 H (0.0-7.3) % Eos % (Auto) 0.1 (0.0-4.3) % Baso % (Auto) 0.5 (0.0-1.8) % Lymph # (Auto) 1.9 (1.2-5.4) K/mm3 [place] # (Auto) 0.6 (0.0-0.8) K/mm3 Eos # (Auto) 0.0 (0.0-0.4) K/mm3 Baso # (Auto) 0.0 (0.0-0.1) K/mm3 Seg Neutrophils % 44.0 (40.0-70.0) % Seg Neutrophils # 2.0 (1.8-7.7) K/mm3 Sodium 136 L (137-145) mmol/L Potassium 3.7 (3.6-5.0) mmol/L Chloride 95.7 L (98-107) mmol/L Carbon Dioxide 26 (22-30) mmol/L Anion Gap 18 mmol/L BUN 7 (7-17) mg/dL Creatinine 0.5 L (0.6-1.2) mg/dL Estimated GFR > 60 ml/min BUN/Creatinine Ratio 14 % Glucose 108 H (65-100) mg/dL Calcium 8.5 (8.4-10.2) mg/dL Total Bilirubin 0.60 (0.1-1.2) mg/dL AST 61 H (5-40) units/L ALT 55 (7-56) units/L Alkaline Phosphatase 189 H (35-129) units/L Troponin T < 0.010 (0.00-0.029) ng/mL Total Protein 7.1 (6.3-8.2) g/dL Albumin 4.2 (3.9-5) g/dL Albumin/Globulin Ratio 1.4 % - EKG Data -: EKG Interpreted by Me EKG shows normal: sinus rhythm Rate: normal - Radiology Data Radiology results: report reviewed - Medical Decision Making Discussed results with patient Critical care attestation.: If time is entered above; I have spent that time in minutes in the direct care of this critically ill patient, excluding procedure time. ED Disposition Clinical Impression: COVID-19 Disposition: 01 HOME / SELF CARE / HOMELESS Is pt being admited?: No Does the pt Need Aspirin: No Condition: Stable Instructions: COVID-19 Frequently Asked Questions, COVID-19, COVID-19: How to Protect Yourself and Others - CDC, Prevent the Spread of COVID-19 if You Are Sick - CDC Additional Instructions: Return if worse Referrals: PRIMARY CARE, [Primary Care Provider] - 3-5 Days [facility] [Provider Group] - 3-5 Days Time of Disposition: 19:35
--- NOTE | 2021-08-14 17:05 | XRay Report ---
CHEST 1 VIEW INDICATION: cough. COMPARISON: 04/03/2021 FINDINGS: Support devices: None. Heart: Normal. Lungs/Pleura: No acute pulmonary or pleural findings. IMPRESSION: 1. No significant change. Signer Name: Zackary Call MD Signed: 08/14/2021 5:01 PM Workstation Name: [email or web address]
[2021-08-14 17:26] LABS: Basophils % (Auto) 0.5 % (0.0-1.8); Eosinophils % (Auto) 0.1 % (0.0-4.3); Hematocrit 45.8 % (30.3-42.9); Hemoglobin 14.7 gm/dl (10.1-14.3); Lymphocytes # (Auto) 1.9 K/mm3 (1.2-5.4); Lymphocytes % (Auto) 41.3 % (13.4-35.0); Mean Corpuscular HGB Conc 32 % (30-34); Mean Corpuscular Volume 91 fl (79-97); Monocytes # (Auto) 0.6 K/mm3 (0.0-0.8); Monocytes % (Auto) 14.1 % (0.0-7.3); Platelet Count 170 K/mm3 (140-440); Red Blood Count 5.03 M/mm3 (3.65-5.03); Red Cell Distribution Width 13.9 % (13.2-15.2)
[2021-08-14 17:47] LABS: Alanine Aminotransferase 55 units/L (7-56); Albumin 4.2 g/dL (3.9-5); BUN/Creatinine Ratio 14; Blood Urea Nitrogen 7 mg/dL (7-17); Calcium 8.5 mg/dL (8.4-10.2); Hemolysis Index 17
[2021-08-14 20:09] VITALS: BP 144/84
--- NOTE | 2021-08-16 09:31 | Electrocardiograph Report ---
[facility] Test Date: 2021-08-14 Test Time: 16:24:44 Pat Name: OCTAVIANO DELEON Department: Room: Gender: F [employer] Worker: ALEJANDRO : 1960 Requested By: EMILY DHALIWAL Order Number: [id number] Reading MD: Jacob Cotto Measurements Intervals [place] Rate: 78 P: 19 NM: 73 QRS: 48 QRSD: 98 T: 37 QT: 407 QTc: 463 Interpretive Statements Sinus rhythm nonspecific st-t No previous ECG available for comparison Electronically Signed On 08-16-2021 9:31:35 EST by Jacob Cotto
== END 2021-08-14 20:11 | disposition home or self-care (01) ==
LOC: ED 15:38
DX: U07.1 COVID-19 (principal); E11.9 Type 2 diabetes mellitus without complications; M19.90 Unspecified osteoarthritis, unspecified site; Z79.899 Other long term (current) drug therapy; Z88.5 Allergy status to narcotic agent; Z88.0 Allergy status to penicillin; Z88.8 Allergy status to other drugs, medicaments and biological substances
CPT/HCPCS: 36415; 71045; 80053; 84484; 85025; 93005; 96361; 96374; 96375; 99284; J1200; J2765; J7030; Q0162